=== PATIENT | female | born 1955 | race Two or more races ===

== ENCOUNTER 2018-01-16 05:13 | Inpatient (IN) | payer MEDICAID ==
[~2018-01-16] VITALS: Ht 170.2 cm; Wt 119.0 kg
[~2018-01-16 05:13] MED LIST: ACAR50TA9 PO; ATEN-60 PO; CLOP75TA28 PO; ENAL5TAB92 PO; GLIP-116 PO; HYDR25TA35 PO; METF-370 PO; RAMI10CA38 PO; RANI-226 PO; SIMV-13 PO
[2018-01-16 07:14] LABS: Basophils # (auto) 0 uL; Basophils % (auto) 0.3 % (0.0-2.0); Eosinophils # (auto) 0.1 uL; Eosinophils % (auto) 2.3 % (0.0-7.0); Hematocrit 33.6 % (36.0-46.0); Hemoglobin 11.3 g/dL (12.2-16.2); Lymphocytes # (auto) 1.3 uL; Lymphocytes % (auto) 32.9 % (10.0-50.0); Mean Corpuscular Hemoglobin 30.6 pg (28.0-32.0); Mean Corpuscular Hgb Conc. 33.5 g/dL (32.0-36.0); Mean Corpuscular Volume 91.4 fL (80.0-100.0); Monocytes # (auto) 0.4 uL; Monocytes % (auto) 10.2 % (0.0-12.0); Neutrophils # (auto) 2.2 uL; Neutrophils % (auto) 54.3 % (37.0-80.0); Nucleated Red Blood Cells % 0.1 %; Platelet Count (auto) 139 10^3/uL (140-450); Red Blood Cells 3.68 10^6/uL (4.0-5.20); Red Cell Distribution Width 14.6 % (11.8-14.3); White Blood Cell 4.1 10^3/uL (4.4-10.8)
[2018-01-16 07:20] LABS: INR 0.97 (0.9-1.15); Partial Thromboplastin Time 25.6 sec (22.64-33.71); Prothrombin Time 10.6 sec (9.37-12.3)
[2018-01-16 07:46] LABS: Albumin 3.1 g/dL (3.4-5.0); BUN/Creatinine Ratio 21.6; Bilirubin, Total 0.3 mg/dL (0.2-1.0); Calcium 8.8 mg/dL (8.5-10.1); Magnesium 2.1 mg/dL (1.6-2.6); Potassium 4.1 mmol/L (3.5-5.1); Total Protein 6.5 g/dL (6.4-8.2)
[2018-01-16 08:19] LABS: Urine Bacteria NONE SEEN /hpf (None Seen); Urine Blood Negative /uL (Negative); Urine Specific Gravity 1.018 (1.001-1.035); Urine WBC <1 /hpf (0 - 5)
[2018-01-16] MEDS ORDERED: ASPirin 81 mg TAB PO ONE (09:00)
[2018-01-16] MEDS ORDERED: ENOXAPARIN SOD 120 MG/0.8 ML SYRINGE SC ONE (09:00)
[2018-01-16] MEDS ORDERED: DEXTROSE (50%) 50ML SYRG IV PRN (10:45)
[2018-01-16] MEDS ORDERED: METOPROLOL TARTRATE 25 MG TAB PO ONE (10:45)
[2018-01-16] MEDS ORDERED: ATORVASTATIN 20 MG TAB PO ONE (10:45)
[2018-01-16] MEDS ORDERED: ACETAMINOPHEN 325 MG TAB PO PRN (11:00)
[2018-01-16] MEDS ORDERED: NITROGLYCERIN 0.4 MG SL TAB SL PRN ×2 (11:00)
[2018-01-16] MEDS ORDERED: ZOLPIDEM TARTRATE 5 MG TAB PO PRN (11:00)
[2018-01-16] MEDS ORDERED: MORPHINE SULFATE 4 MG/ML SYR/VIAL IV PRN ×2 (11:00)
[2018-01-16] MEDS ORDERED: FUROSEMIDE 40 MG/4 ML VIAL IV ONE (11:00)
[2018-01-16] MEDS ORDERED: ALUM & MAG HYDROX-SIMETH LIQ(MAALOX) 30 ML PO ONE (11:00)
[2018-01-16] MEDS ORDERED: POTASSIUM CHL 10 Meq TABLET PO ONE (11:00)
[2018-01-16] MEDS ORDERED: ONDANSETRON HCL 4 MG/2 ML VIAL IV PRN (11:00)
[2018-01-16] MEDS ORDERED: LORazepam 0.5 MG TAB PO PRN (11:00)
[2018-01-16] MEDS: ACCU-CHEK COMFORT CURVE STRIP VI SCH ×3 (11:08→22:55)
[2018-01-16] MEDS: SODIUM CHLOR 0.9% PF (SALINE LOCK) 10ML VIAL/SYR IV SCH ×2 (11:11→22:55)
[2018-01-16] MEDS ORDERED: ASPirin 81 mg TAB PO SCH (11:15)
[2018-01-16] MEDS ORDERED: ENOXAPARIN SOD 100 MG/1 ML SYRINGE SC SCH (11:15)
[2018-01-16] MEDS: CLOPIDOGREL BISULFATE 75 MG TAB PO SCH (11:43)
[2018-01-16] MEDS: InsuLIN REG 1unit/0.01ml Soln (100units/ml) SC SCH ×3 (11:43→22:55)
[2018-01-16] MEDS: Boost Glucose Control 8 Ounces PO SCH ×2 (12:23→18:01)
[2018-01-16] MEDS ORDERED: FURO20TA3 PO (13:00)
[2018-01-16] MEDS ORDERED: CAR3125T PO (13:00)
[2018-01-16] MEDS ORDERED: NATE120T5 PO (13:00)
[2018-01-16] MEDS ORDERED: TERB250T66 PO (13:00)
[2018-01-16] MEDS ORDERED: PIO30T PO (13:00)
[2018-01-16] MEDS ORDERED: ACAR100T2 PO (13:00)
[2018-01-16] MEDS ORDERED: PANC3000 PO (13:00)
[2018-01-16] MEDS: glipiZIDE 5 MG TAB PO SCH (18:01)
[2018-01-16] MEDS ORDERED: ATORVASTATIN 20 MG TAB PO SCH (22:00)
[2018-01-16] MEDS: ENALAPRIL MALEATE 2.5 MG TAB PO SCH (22:55)
[2018-01-16] MEDS: ENOXAPARIN SOD 100 MG/1 ML SYRINGE SC SCH (22:55)
[2018-01-16] MEDS: CARVEDILOL 3.125 MG TAB PO SCH (22:55)
[2018-01-16] MEDS: METOPROLOL TARTRATE 25 MG TAB PO SCH (22:55)
[2018-01-17] VITALS (7 sets, daily range): BP systolic 110–141; BP diastolic 57–76
[2018-01-17] MEDS: SODIUM CHLOR 0.9% PF (SALINE LOCK) 10ML VIAL/SYR IV SCH ×2 (05:23→17:08)
[2018-01-17] MEDS: ACCU-CHEK COMFORT CURVE STRIP VI SCH ×3 (05:23→17:00)
[2018-01-17] MEDS: InsuLIN REG 1unit/0.01ml Soln (100units/ml) SC SCH ×3 (06:06→17:00)
[2018-01-17] MEDS: glipiZIDE 5 MG TAB PO SCH (06:06)
[2018-01-17 07:35] LABS: Basophils # (auto) 0 uL; Basophils % (auto) 0.4 % (0.0-2.0); Eosinophils # (auto) 0.1 uL; Eosinophils % (auto) 2.2 % (0.0-7.0); Hemoglobin 10.9 g/dL (12.2-16.2); Lymphocytes % (auto) 42.9 % (10.0-50.0); Mean Corpuscular Hemoglobin 30.7 pg (28.0-32.0); Mean Corpuscular Volume 90.5 fL (80.0-100.0); Monocytes # (auto) 0.5 uL; Monocytes % (auto) 9.9 % (0.0-12.0); Neutrophils # (auto) 2.1 uL; Neutrophils % (auto) 44.6 % (37.0-80.0); Platelet Count (auto) 133 10^3/uL (140-450); Red Blood Cells 3.53 10^6/uL (4.0-5.20); Red Cell Distribution Width 14.5 % (11.8-14.3); White Blood Cell 4.7 10^3/uL (4.4-10.8)
[2018-01-17] MEDS: Boost Glucose Control 8 Ounces PO SCH ×2 (08:00→12:00)
[2018-01-17 08:02] LABS: Albumin 2.8 g/dL (3.4-5.0); BUN/Creatinine Ratio 19.6; Bilirubin, Total 0.4 mg/dL (0.2-1.0); Calcium 8.8 mg/dL (8.5-10.1); Magnesium 2.2 mg/dL (1.6-2.6); Potassium 4.1 mmol/L (3.5-5.1); Total Protein 5.9 g/dL (6.4-8.2)
[2018-01-17] MEDS ORDERED: PIOGLITAZONE HYDROCHLORIDE 30 MG TAB PO SCH (10:00)
[2018-01-17] MEDS ORDERED: DOCUSATE SOD 100 MG CAP PO SCH (10:00)
[2018-01-17] MEDS ORDERED: ASPirin 81 mg TAB PO SCH (10:00)
[2018-01-17] MEDS ORDERED: POTASSIUM CHL 10 Meq TABLET PO SCH (10:00)
[2018-01-17] MEDS ORDERED: FUROSEMIDE 40 MG/4 ML VIAL IV SCH (10:00)
[2018-01-17] MEDS: CLOPIDOGREL BISULFATE 75 MG TAB PO SCH (10:54)
[2018-01-17] MEDS: ENALAPRIL MALEATE 2.5 MG TAB PO SCH (10:55)
[2018-01-17] MEDS: CARVEDILOL 3.125 MG TAB PO SCH (10:56)
[2018-01-17] MEDS: METOPROLOL TARTRATE 25 MG TAB PO SCH (10:56)
[2018-01-17] MEDS: ENOXAPARIN SOD 100 MG/1 ML SYRINGE SC SCH (10:57)
== END 2018-01-17 17:00 | disposition home or self-care (01) | DRG 190 ==
LOC: EDBD 05:13 → ER 05:18 → OVERFLOW 05:19 → TELE-WESTW 01-17 01:57
PROVIDERS: ADMIT Internal Medicine; ATTEND Internal Medicine
DX: I21.4 Non-ST elevation (NSTEMI) myocardial infarction (principal); I50.43 Acute on chronic combined systolic (congestive) and diastolic (congestive) heart failure; E44.0 Moderate protein-calorie malnutrition; E11.21 Type 2 diabetes mellitus with diabetic nephropathy; N18.3 Chronic kidney disease, stage 3 (moderate); E87.6 Hypokalemia; D63.8 Anemia in other chronic diseases classified elsewhere; E11.22 Type 2 diabetes mellitus with diabetic chronic kidney disease; E66.01 Morbid (severe) obesity due to excess calories; E78.5 Hyperlipidemia, unspecified; I13.0 Hypertensive heart and chronic kidney disease with heart failure and stage 1 through stage 4 chronic kidney disease, or unspecified chronic kidney disease; I25.10 Atherosclerotic heart disease of native coronary artery without angina pectoris; Z90.710 Acquired absence of both cervix and uterus; Z90.49 Acquired absence of other specified parts of digestive tract; Z68.41 Body mass index [BMI] 40.0-44.9, adult
CPT/HCPCS: 36415; 71045; 80053; 80061; 81001; 82962; 83036; 83735; 83880; 84443; 84484; 85025; 85610; 85730; 93005; 93306; 96372; 96374; 99291; G0378; J1815

== ENCOUNTER 2018-01-19 16:43 | Inpatient (IN) | payer MEDICAID ==
[~2018-01-19] VITALS: Ht 170.2 cm; Wt 118.8 kg
[~2018-01-19 16:43] MED LIST changes: +ACAR100T2 PO; -ATEN-60 PO; +CAR3125T PO; -CLOP75TA28 PO; +FURO20TA3 PO; -HYDR25TA35 PO; +NATE120T5 PO; +PANC3000 PO; +PIO30T PO; -RAMI10CA38 PO; +TERB250T66 PO
[2018-01-19 17:58] LABS: Basophils # (auto) 0 uL; Basophils % (auto) 0.5 % (0.0-2.0); Eosinophils # (auto) 0.1 uL; Eosinophils % (auto) 2.2 % (0.0-7.0); Hematocrit 34.1 % (36.0-46.0); Hemoglobin 11.4 g/dL (12.2-16.2); Lymphocytes # (auto) 1.6 uL; Lymphocytes % (auto) 30.8 % (10.0-50.0); Mean Corpuscular Hemoglobin 30.5 pg (28.0-32.0); Mean Corpuscular Hgb Conc. 33.4 g/dL (32.0-36.0); Mean Corpuscular Volume 91.3 fL (80.0-100.0); Monocytes # (auto) 0.6 uL; Monocytes % (auto) 11.6 % (0.0-12.0); Neutrophils # (auto) 2.8 uL; Neutrophils % (auto) 54.9 % (37.0-80.0); Platelet Count (auto) 153 10^3/uL (140-450); Red Blood Cells 3.74 10^6/uL (4.0-5.20); Red Cell Distribution Width 14.8 % (11.8-14.3); White Blood Cell 5.1 10^3/uL (4.4-10.8)
[2018-01-19 18:13] LABS: Albumin 3.1 g/dL (3.4-5.0); BUN/Creatinine Ratio 22.8; Calcium 8.9 mg/dL (8.5-10.1); Magnesium 1.8 mg/dL (1.6-2.6); Potassium 3.7 mmol/L (3.5-5.1)
[2018-01-19 18:15] LABS: INR 0.99 (0.9-1.15); Partial Thromboplastin Time 23.7 sec (22.64-33.71); Prothrombin Time 10.8 sec (9.37-12.3)
[2018-01-19 18:16] LABS: Bilirubin, Total 0.3 mg/dL (0.2-1.0); Total Protein 6.9 g/dL (6.4-8.2)
[2018-01-19] MEDS ORDERED: MORPHINE SULFATE 4 MG/ML SYR/VIAL IV ONE (19:15)
[2018-01-19] MEDS ORDERED: ONDANSETRON HCL 4 MG/2 ML VIAL IV ONE (19:15)
[2018-01-19] MEDS ORDERED: ASPirin 81 mg TAB PO ONE (19:15)
[2018-01-19] MEDS ORDERED: ENOXAPARIN SOD 60 MG/0.6 ML SYRINGE SC ONE (23:15)
[2018-01-20] MEDS ORDERED: NITROGLYCERIN 0.4 MG SL TAB SL PRN (00:15)
[2018-01-20] MEDS ORDERED: MORPHINE SULFATE 4 MG/ML SYR/VIAL IV PRN (00:15)
[2018-01-20] MEDS ORDERED: TEMAZEPAM 15 MG CAP PO PRN (00:15)
[2018-01-20] MEDS ORDERED: HYDROcodone-ACET 5/325MG TAB PO PRN (00:15)
[2018-01-20] MEDS ORDERED: ONDANSETRON HCL 4 MG/2 ML VIAL IV PRN (00:15)
[2018-01-20] MEDS ORDERED: ACETAMINOPHEN 325 MG TAB PO PRN (00:15)
[2018-01-20 01:38] VITALS: BP 146/81
[2018-01-20 04:56] VITALS: BP 124/64
[2018-01-20] MEDS ORDERED: FUROSEMIDE 20 MG TAB PO SCH (06:00)
[2018-01-20] MEDS ORDERED: glipiZIDE 5 MG TAB PO SCH (07:00)
[2018-01-20 09:00] VITALS: BP 128/65
[2018-01-20] MEDS ORDERED: ENOXAPARIN SOD 40 MG/0.4 ML SYRINGE SC SCH (10:00)
[2018-01-20] MEDS ORDERED: FAMOTIDINE 20 MG TAB PO SCH (10:00)
[2018-01-20] MEDS ORDERED: ASPirin 81 mg TAB PO SCH (10:00)
[2018-01-20] MEDS ORDERED: ENALAPRIL MALEATE 10 MG TAB PO SCH (10:00)
[2018-01-20] MEDS ORDERED: CARVEDILOL 3.125 MG TAB PO SCH (10:00)
[2018-01-20 13:00] VITALS: BP 105/60
[2018-01-20] MEDS ORDERED: ATORVASTATIN 20 MG TAB PO SCH (22:00)
== END 2018-01-20 13:17 | disposition home or self-care (01) | DRG 347 ==
LOC: EDBD 16:43 → ER 16:43 → TELE 16:44 → TELE-EAST 01-20 01:21
PROVIDERS: ADMIT Nurse Practitioner; ATTEND Nurse Practitioner
DX: M47.812 Spondylosis without myelopathy or radiculopathy, cervical region (principal); I11.0 Hypertensive heart disease with heart failure; I50.9 Heart failure, unspecified; Z68.41 Body mass index [BMI] 40.0-44.9, adult; I08.0 Rheumatic disorders of both mitral and aortic valves; E11.9 Type 2 diabetes mellitus without complications; E66.9 Obesity, unspecified; I25.10 Atherosclerotic heart disease of native coronary artery without angina pectoris; M19.90 Unspecified osteoarthritis, unspecified site; N28.9 Disorder of kidney and ureter, unspecified; M77.9 Enthesopathy, unspecified; Z82.49 Family history of ischemic heart disease and other diseases of the circulatory system; Z83.3 Family history of diabetes mellitus; Z90.710 Acquired absence of both cervix and uterus; Z90.49 Acquired absence of other specified parts of digestive tract
CPT/HCPCS: 36415; 71045; 72040; 80053; 82962; 83735; 83880; 84484; 85025; 85379; 85610; 85730; 87081; 93005; 94761; 96372; 96374; 96375; J2405

== ENCOUNTER 2022-08-05 20:49 | Inpatient (IN) | payer MEDICAID, OTHER ==
[~2022-08-05] VITALS: Ht 172.7 cm; Wt 124.0 kg
[~2022-08-05 20:49] MED LIST changes: +ACAR100T PO; -ACAR100T2 PO; -ACAR50TA9 PO; +ENAL5TAB10 PO; -ENAL5TAB92 PO; -GLIP-116 PO; +GLIP10TA9 PO
[2022-08-05 22:23] LABS: Basophils # (auto) 0 10 ^3/uL (0-0.2); Basophils % (auto) 0.5 % (0.0-2.0); Eosinophils # (auto) 0.3 10 ^3/uL (0-0.8); Hematocrit 41.9 % (36.0-46.0); Hemoglobin 13.8 g/dL (12.2-16.2); Lymphocytes # (auto) 2.4 10 ^3/uL (0.4-5.4); Lymphocytes % (auto) 35.1 % (10.0-50.0); Mean Corpuscular Hemoglobin 29.4 pg (28.0-32.0); Monocytes # (auto) 0.6 10 ^3/uL (0-1.3); Monocytes % (auto) 8.3 % (0.0-12.0); Neutrophils # (auto) 3.6 10 ^3/uL (1.6-8.6); Neutrophils % (auto) 52.1 % (37.0-80.0); Red Blood Cells 4.71 10^6/uL (4.0-5.20); Red Cell Distribution Width 12.9 % (11.8-14.3)
[2022-08-05 22:37] LABS: Albumin 3.6 g/dL (3.4-5.0); Calcium 9.6 mg/dL (8.5-10.1); Potassium 4.5 mmol/L (3.5-5.1)
[2022-08-05 22:40] LABS: BUN/Creatinine Ratio 25.3; Bilirubin, Total 0.5 mg/dL (0.2-1.0); Total Protein 6.8 g/dL (6.4-8.2)
[2022-08-05] MEDS ORDERED: ONDANSETRON HCL 4 MG/2 ML VIAL IV PRN (23:00)
[2022-08-05] MEDS ORDERED: DEXTROSE (50%) 50ML SYRG IV PRN (23:00)
[2022-08-05] MEDS ORDERED: NITROGLYCERIN 0.4 MG SL TAB SL PRN (23:00)
[2022-08-05] MEDS ORDERED: DOCUSATE SOD 100 MG CAP PO PRN (23:00)
[2022-08-05] MEDS ORDERED: hydrALAZINE HCL 20 MG/ML VL IV PRN (23:00)
[2022-08-05] MEDS ORDERED: HYDROcodone-ACET 5/325MG TAB PO PRN (23:00)
[2022-08-05] MEDS ORDERED: MORPHINE SULFATE INJ 2 MG/ml SYRG IV PRN (23:00)
[2022-08-05] MEDS ORDERED: ACETAMINOPHEN 325 MG TAB PO PRN (23:00)
[2022-08-06] MEDS ORDERED: HEPARIN SODIUM (PORCINE) 5000 UNITS/ML 1ML VIAL SC SCH (00:15)
[2022-08-06] MEDS: ACCU-CHEK COMFORT CURVE STRIP VI SCH ×4 (03:00→17:35)
[2022-08-06] MEDS: InsuLIN REG 1unit/0.01ml Soln (100units/ml) SC SCH ×4 (03:07→17:44)
[2022-08-06] MEDS ORDERED: HEPARIN DRIP/D5W 100UNITS/ML 250 ML IV SCH ×3 (03:45→21:45)
[2022-08-06 03:55] LABS: Basophils # (auto) 0 10 ^3/uL (0-0.2); Basophils % (auto) 0.4 % (0.0-2.0); Eosinophils # (auto) 0.3 10 ^3/uL (0-0.8); Hemoglobin 13.3 g/dL (12.2-16.2); Lymphocytes # (auto) 2.3 10 ^3/uL (0.4-5.4); Mean Corpuscular Hemoglobin 29.5 pg (28.0-32.0); Mean Corpuscular Hgb Conc. 33.2 g/dL (32.0-36.0); Mean Corpuscular Volume 88.8 fL (80.0-100.0); Monocytes # (auto) 0.7 10 ^3/uL (0-1.3); Monocytes % (auto) 9.7 % (0.0-12.0); Neutrophils # (auto) 3.7 10 ^3/uL (1.6-8.6); Neutrophils % (auto) 52.9 % (37.0-80.0); Red Blood Cells 4.51 10^6/uL (4.0-5.20)
[2022-08-06 04:11] LABS: Albumin 3.2 g/dL (3.4-5.0); Calcium 9.5 mg/dL (8.5-10.1); Potassium 4.1 mmol/L (3.5-5.1)
[2022-08-06 04:17] LABS: BUN/Creatinine Ratio 26.3; Bilirubin, Total 0.8 mg/dL (0.2-1.0); Total Protein 6.2 g/dL (6.4-8.2)
[2022-08-06 04:21] LABS: Urine Bacteria NONE SEEN /hpf (None Seen); Urine Blood TRACE /uL (Negative); Urine Specific Gravity 1.018 (1.001-1.035); Urine WBC 2 /hpf (0 - 5)
[2022-08-06 05:12] LABS: INR 1.03 (0.9-1.15); Partial Thromboplastin Time 26.2 sec (24.6-33.4)
[2022-08-06] MEDS: SODIUM CHLOR 0.9% PF (SALINE LOCK) 10ML VIAL/SYR IV SCH ×3 (06:04→21:51)
[2022-08-06] MEDS: amLODIPine BESYLATE 5 MG TAB PO SCH (10:09)
[2022-08-06] MEDS: ASPirin 81 mg TAB PO SCH (10:09)
[2022-08-06 13:06] LABS: INR 1.06 (0.9-1.15)
[2022-08-06 13:28] LABS: Partial Thromboplastin Time 108.4 sec (24.6-33.4)
[2022-08-06 16:20] VITALS: BP 149/65
[2022-08-06] MEDS ORDERED: CLOPIDOGREL 300 MG TAB PO ONE (16:45)
[2022-08-06 17:00] VITALS: BP 149/65
[2022-08-06 20:48] LABS: INR 1.4 (0.9-1.15); Partial Thromboplastin Time 34.2 sec (24.6-33.4)
[2022-08-06] MEDS ORDERED: HEPARIN SODIUM (PORCINE) 5000 UNITS/ML 1ML VIAL IV ONE (21:45)
[2022-08-06] MEDS: CARVEDILOL 12.5 MG TAB PO SCH (21:51)
[2022-08-06] MEDS: ATORVASTATIN 20 MG TAB PO SCH (21:52)
[2022-08-06 22:00] VITALS: BP 152/91
[2022-08-06] MEDS ORDERED: ATORVASTATIN 20 MG TAB PO SCH (22:00)
[2022-08-07] MEDS: ACCU-CHEK COMFORT CURVE STRIP VI SCH ×5 (00:11→23:56)
[2022-08-07 05:00] VITALS: BP 146/71
[2022-08-07] MEDS: SODIUM CHLOR 0.9% PF (SALINE LOCK) 10ML VIAL/SYR IV SCH ×3 (05:40→22:00)
[2022-08-07] MEDS: InsuLIN REG 1unit/0.01ml Soln (100units/ml) SC SCH ×5 (05:53→23:58)
[2022-08-07 06:09] LABS: INR 1.18 (0.9-1.15)
[2022-08-07 06:14] LABS: Partial Thromboplastin Time > 139.0 sec (24.6-33.4)
[2022-08-07] MEDS ORDERED: HEPARIN DRIP/D5W 100UNITS/ML 250 ML IV SCH ×2 (07:30→15:30)
[2022-08-07 08:00] VITALS: BP 144/73
[2022-08-07] MEDS: CARVEDILOL 12.5 MG TAB PO SCH ×2 (09:04→22:00)
[2022-08-07] MEDS: CLOPIDOGREL BISULFATE 75 MG TAB PO SCH (09:04)
[2022-08-07] MEDS: amLODIPine BESYLATE 5 MG TAB PO SCH (09:05)
[2022-08-07] MEDS: ASPirin 81 mg TAB PO SCH (09:05)
[2022-08-07 12:00] VITALS: BP 101/56
[2022-08-07] MEDS ORDERED: DEXT100S73 PO (12:44)
[2022-08-07] MEDS ORDERED: ALBUAER3 IN (12:44)
[2022-08-07] MEDS ORDERED: AZIT250T8 PO (12:44)
[2022-08-07 14:09] LABS: INR 1.12 (0.9-1.15)
[2022-08-07 14:14] LABS: Partial Thromboplastin Time 82.4 sec (24.6-33.4)
[2022-08-07 16:00] VITALS: BP 137/66
[2022-08-07 21:20] LABS: INR 1.09 (0.9-1.15); Partial Thromboplastin Time 68.4 sec (24.6-33.4)
[2022-08-07 22:00] VITALS: BP 129/72
[2022-08-07] MEDS: ATORVASTATIN 20 MG TAB PO SCH (22:00)
[2022-08-08 03:34] LABS: INR 1.1 (0.9-1.15)
[2022-08-08 03:48] LABS: Partial Thromboplastin Time 72.1 sec (24.6-33.4)
[2022-08-08 05:00] VITALS: BP 136/66
[2022-08-08] MEDS: SODIUM CHLOR 0.9% PF (SALINE LOCK) 10ML VIAL/SYR IV SCH ×2 (05:54→15:06)
[2022-08-08] MEDS: ACCU-CHEK COMFORT CURVE STRIP VI SCH ×2 (05:54→11:18)
[2022-08-08] MEDS: InsuLIN REG 1unit/0.01ml Soln (100units/ml) SC SCH ×2 (05:55→11:17)
[2022-08-08 08:04] VITALS: BP 115/62
[2022-08-08 09:00] VITALS: BP 146/72
[2022-08-08] MEDS: CLOPIDOGREL BISULFATE 75 MG TAB PO SCH (09:33)
[2022-08-08] MEDS: ASPirin 81 mg TAB PO SCH (09:34)
[2022-08-08] MEDS: CARVEDILOL 12.5 MG TAB PO SCH (09:34)
[2022-08-08] MEDS: amLODIPine BESYLATE 5 MG TAB PO SCH (09:35)
[2022-08-08 10:29] LABS: INR 1.11 (0.9-1.15); Partial Thromboplastin Time 64.1 sec (24.6-33.4)
[2022-08-08] MEDS ORDERED: RANOLAZINE ER 500 MG TAB PO ONE (13:00)
[2022-08-08 13:01] VITALS: BP 119/57
[2022-08-08] MEDS ORDERED: CLOP75TA70 PO (16:02)
[2022-08-08] MEDS ORDERED: RANO500T PO (16:02)
[2022-08-08] MEDS ORDERED: SACU1TAB PO (16:02)
[2022-08-08 16:58] VITALS: BP 121/54
[2022-08-08] MEDS ORDERED: SACUBITRIL-VALSARTAN 24mg/26mg TAB PO SCH (22:00)
[2022-08-08] MEDS ORDERED: RANOLAZINE ER 500 MG TAB PO SCH (22:00)
== END 2022-08-08 18:01 | disposition home or self-care (01) | DRG 281 ==
LOC: EDBD 20:49 → ER 20:49 → UNDOADMIN 23:05 → TELE 23:05 → TELE-EAST 08-06 16:33 → TELE 08-06 16:33 → TELE-EAST 08-06 17:19
PROVIDERS: ADMIT Nurse Practitioner Family; ATTEND Internal Medicine
DX: I21.4 Non-ST elevation (NSTEMI) myocardial infarction (principal); I50.22 Chronic systolic (congestive) heart failure; Z68.41 Body mass index [BMI] 40.0-44.9, adult; E78.5 Hyperlipidemia, unspecified; I16.0 Hypertensive urgency; I25.10 Atherosclerotic heart disease of native coronary artery without angina pectoris; E66.01 Morbid (severe) obesity due to excess calories; R94.31 Abnormal electrocardiogram [ECG] [EKG]; E11.9 Type 2 diabetes mellitus without complications; I11.0 Hypertensive heart disease with heart failure; I25.2 Old myocardial infarction; Z79.899 Other long term (current) drug therapy; Z82.49 Family history of ischemic heart disease and other diseases of the circulatory system; Z83.3 Family history of diabetes mellitus; Z90.710 Acquired absence of both cervix and uterus; Z90.49 Acquired absence of other specified parts of digestive tract
CPT/HCPCS: 36415; 71045; 80053; 81001; 82962; 83036; 83735; 83880; 84484; 85025; 85379; 85610; 85730; 87081; 87426; 93005; 93306; 96365; 96367; 96372; 96375; G0378; J1815

== ENCOUNTER 2022-08-12 01:47 | Inpatient (IN) | payer OTHER ==
[~2022-08-12] VITALS: Ht 172.7 cm; Wt 120.2 kg
[~2022-08-12 01:47] MED LIST changes: +ALBUAER3 IN; +CLOP75TA70 PO; +RANO500T PO; +SACU1TAB PO
[2022-08-12 02:51] LABS: Basophils # (auto) 0 10 ^3/uL (0-0.2); Basophils % (auto) 0.7 % (0.0-2.0); Eosinophils # (auto) 0.3 10 ^3/uL (0-0.8); Eosinophils % (auto) 4.1 % (0.0-7.0); Hemoglobin 12.7 g/dL (12.2-16.2); Lymphocytes # (auto) 1.8 10 ^3/uL (0.4-5.4); Lymphocytes % (auto) 28.1 % (10.0-50.0); Mean Corpuscular Hemoglobin 29.1 pg (28.0-32.0); Mean Corpuscular Hgb Conc. 32.5 g/dL (32.0-36.0); Mean Corpuscular Volume 89.7 fL (80.0-100.0); Monocytes # (auto) 0.6 10 ^3/uL (0-1.3); Monocytes % (auto) 10.1 % (0.0-12.0); Neutrophils # (auto) 3.6 10 ^3/uL (1.6-8.6); Red Blood Cells 4.35 10^6/uL (4.0-5.20); Red Cell Distribution Width 13.2 % (11.8-14.3); White Blood Cell 6.3 10^3/uL (4.4-10.8)
[2022-08-12 03:00] LABS: BUN/Creatinine Ratio 25.3; Calcium 8.9 mg/dL (8.5-10.1)
[2022-08-12 03:02] LABS: Bilirubin, Total 0.5 mg/dL (0.2-1.0); Total Protein 5.9 g/dL (6.4-8.2)
[2022-08-12 03:07] LABS: INR 1.02 (0.9-1.15); Partial Thromboplastin Time 24.9 sec (24.6-33.4)
[2022-08-12] MEDS ORDERED: ASPirin 81 mg TAB PO ONE (05:30)
[2022-08-12] MEDS ORDERED: MORPHINE SULFATE INJ 2 MG/ml SYRG IV PRN (05:30)
[2022-08-12] MEDS ORDERED: ONDANSETRON HCL 4 MG/2 ML VIAL IV PRN ×2 (07:30→09:45)
[2022-08-12] MEDS ORDERED: ENOXAPARIN SOD 30 MG/0.3 ML SYRINGE IV ONE (09:45)
[2022-08-12] MEDS ORDERED: NITROGLYCERIN 0.4 MG SL TAB SL PRN (09:45)
[2022-08-12] MEDS ORDERED: ACETAMINOPHEN 325 MG TAB PO PRN (09:45)
[2022-08-12] MEDS ORDERED: MORPHINE SULFATE 4 MG/ML SYR/VIAL IV PRN (09:45)
[2022-08-12] MEDS ORDERED: ENALAPRIL MALEATE 10 MG TAB PO SCH (10:00)
[2022-08-12 10:30] LABS: Urine Bacteria NONE SEEN /hpf (None Seen); Urine Blood Negative /uL (Negative); Urine Hyaline Cast FEW /lpf (0 - 2); Urine Specific Gravity 1.031 (1.001-1.035); Urine WBC 1 /hpf (0 - 5)
[2022-08-12] MEDS: DOCUSATE SOD 100 MG CAP PO SCH (10:40)
[2022-08-12] MEDS: RANOLAZINE ER 500 MG TAB PO SCH ×2 (10:41→23:58)
[2022-08-12] MEDS: SACUBITRIL-VALSARTAN 24mg/26mg TAB PO SCH ×2 (10:41→23:56)
[2022-08-12] MEDS: CLOPIDOGREL BISULFATE 75 MG TAB PO SCH (10:41)
[2022-08-12] MEDS: CARVEDILOL 3.125 MG TAB PO SCH ×2 (10:58→22:00)
[2022-08-12] MEDS ORDERED: DEXTROSE (50%) 50ML SYRG IV PRN (11:00)
[2022-08-12] MEDS: InsuLIN REG 1unit/0.01ml Soln (100units/ml) SC SCH ×2 (11:30→18:07)
[2022-08-12] MEDS: ACCU-CHEK COMFORT CURVE STRIP VI SCH ×2 (11:30→17:15)
[2022-08-12] MEDS ORDERED: PATIENTS OWN MEDICATION (Simvastatin 1 TAB) PO SCH (18:00)
[2022-08-12] MEDS: PANCREATIC ENZYMES PO SCH (18:00)
[2022-08-12] MEDS: FUROSEMIDE 20 MG TAB PO SCH (18:12)
[2022-08-12 22:00] VITALS: BP 122/71
[2022-08-12] MEDS: ATORVASTATIN 20 MG TAB PO SCH (23:58)
[2022-08-13] VITALS (7 sets, daily range): BP systolic 108–130; BP diastolic 44–72
[2022-08-13] MEDS: ACCU-CHEK COMFORT CURVE STRIP VI SCH ×5 (00:02→22:04)
[2022-08-13 06:01] LABS: Basophils # (auto) 0 10 ^3/uL (0-0.2); Basophils % (auto) 0.5 % (0.0-2.0); Eosinophils # (auto) 0.2 10 ^3/uL (0-0.8); Eosinophils % (auto) 3.8 % (0.0-7.0); Hematocrit 37.6 % (36.0-46.0); Hemoglobin 12.9 g/dL (12.2-16.2); Lymphocytes # (auto) 2.9 10 ^3/uL (0.4-5.4); Lymphocytes % (auto) 44.7 % (10.0-50.0); Mean Corpuscular Hemoglobin 30.5 pg (28.0-32.0); Mean Corpuscular Hgb Conc. 34.4 g/dL (32.0-36.0); Mean Corpuscular Volume 88.8 fL (80.0-100.0); Monocytes # (auto) 0.6 10 ^3/uL (0-1.3); Neutrophils # (auto) 2.7 10 ^3/uL (1.6-8.6); Nucleated Red Blood Cells % 0.1 %; Red Blood Cells 4.23 10^6/uL (4.0-5.20); Red Cell Distribution Width 13.2 % (11.8-14.3); White Blood Cell 6.5 10^3/uL (4.4-10.8)
[2022-08-13 06:06] LABS: Albumin 2.8 g/dL (3.4-5.0); Calcium 9.1 mg/dL (8.5-10.1); Potassium 3.7 mmol/L (3.5-5.1)
[2022-08-13 06:10] LABS: BUN/Creatinine Ratio 20.6; Bilirubin, Total 0.6 mg/dL (0.2-1.0); Total Protein 5.9 g/dL (6.4-8.2)
[2022-08-13] MEDS: InsuLIN REG 1unit/0.01ml Soln (100units/ml) SC SCH ×5 (06:25→21:31)
[2022-08-13] MEDS: FUROSEMIDE 20 MG TAB PO SCH ×2 (06:30→17:34)
[2022-08-13] MEDS: PANCREATIC ENZYMES PO SCH ×2 (08:00→16:58)
[2022-08-13] MEDS: DOCUSATE SOD 100 MG CAP PO SCH (10:03)
[2022-08-13] MEDS: CLOPIDOGREL BISULFATE 75 MG TAB PO SCH (10:03)
[2022-08-13] MEDS: RANOLAZINE ER 500 MG TAB PO SCH ×2 (10:03→22:04)
[2022-08-13] MEDS: SACUBITRIL-VALSARTAN 24mg/26mg TAB PO SCH ×2 (10:03→22:04)
[2022-08-13] MEDS: PANTOPRAZOLE 40 MG/10 ML VIAL INJ IV SCH (10:05)
[2022-08-13] MEDS: CARVEDILOL 3.125 MG TAB PO SCH ×2 (10:05→22:18)
[2022-08-13] MEDS: ATORVASTATIN 20 MG TAB PO SCH (22:04)
[2022-08-14 05:00] VITALS: BP 112/55
[2022-08-14] MEDS: InsuLIN REG 1unit/0.01ml Soln (100units/ml) SC SCH ×2 (06:33→12:13)
[2022-08-14] MEDS: ACCU-CHEK COMFORT CURVE STRIP VI SCH ×2 (06:38→12:13)
[2022-08-14] MEDS: FUROSEMIDE 20 MG TAB PO SCH (06:39)
[2022-08-14] MEDS: PANCREATIC ENZYMES PO SCH (08:00)
[2022-08-14 09:00] VITALS: BP 109/43
[2022-08-14] MEDS: PANTOPRAZOLE 40 MG/10 ML VIAL INJ IV SCH (09:24)
[2022-08-14] MEDS: RANOLAZINE ER 500 MG TAB PO SCH (09:24)
[2022-08-14] MEDS: CARVEDILOL 3.125 MG TAB PO SCH (09:25)
[2022-08-14] MEDS: DOCUSATE SOD 100 MG CAP PO SCH (09:25)
[2022-08-14] MEDS: CLOPIDOGREL BISULFATE 75 MG TAB PO SCH (09:25)
[2022-08-14] MEDS: SACUBITRIL-VALSARTAN 24mg/26mg TAB PO SCH (10:00)
== END 2022-08-14 12:45 | disposition home or self-care (01) | DRG 291 ==
LOC: EDBD 01:47 → EDUNIT# 01:47 → ER 01:47 → TELE 09:52 → TELE-CENTR 23:19
PROVIDERS: ADMIT Nurse Practitioner Family; ATTEND Nurse Practitioner Family
DX: I11.0 Hypertensive heart disease with heart failure (principal); I50.43 Acute on chronic combined systolic (congestive) and diastolic (congestive) heart failure; R07.9 Chest pain, unspecified; E78.5 Hyperlipidemia, unspecified; Z20.822 Contact with and (suspected) exposure to COVID-19; E11.9 Type 2 diabetes mellitus without complications; E78.00 Pure hypercholesterolemia, unspecified; I25.10 Atherosclerotic heart disease of native coronary artery without angina pectoris; K21.9 Gastro-esophageal reflux disease without esophagitis; Z82.49 Family history of ischemic heart disease and other diseases of the circulatory system; Z83.3 Family history of diabetes mellitus; Z90.710 Acquired absence of both cervix and uterus; I25.2 Old myocardial infarction
CPT/HCPCS: 36415; 71045; 80053; 80061; 81001; 82962; 83735; 83880; 84484; 85025; 85610; 85730; 87081; 87426; 93005; 96374; 96375; 96376; C9113; G0378; J1815; J2405

== ENCOUNTER 2023-11-13 04:19 | Inpatient (IN) | payer OTHER ==
[~2023-11-13] VITALS: Ht 162.6 cm; Wt 104.9 kg
[~2023-11-13 04:19] MED LIST changes: -ENAL5TAB10 PO; +ENAL5TAB22 PO; -SIMV-13 PO; +SIMV40TA18 PO; -TERB250T66 PO; +TERB250T74 PO
[2023-11-13] MEDS: cloNIDine HCL 0.1 MG TAB PO ONE (04:48)
[2023-11-13 05:05] LABS: Basophils # (auto) 0 10 ^3/uL (0-0.2); Basophils % (auto) 0.5 % (0.0-2.0); Eosinophils # (auto) 0.1 10 ^3/uL (0-0.8); Eosinophils % (auto) 2.3 % (0.0-7.0); Hematocrit 40.2 % (36.0-46.0); Hemoglobin 13.3 g/dL (12.2-16.2); Lymphocytes # (auto) 1.4 10 ^3/uL (0.4-5.4); Lymphocytes % (auto) 27.3 % (10.0-50.0); Mean Corpuscular Hemoglobin 30.8 pg (28.0-32.0); Mean Corpuscular Hgb Conc. 33.2 g/dL (32.0-36.0); Mean Corpuscular Volume 92.8 fL (80.0-100.0); Monocytes # (auto) 0.5 10 ^3/uL (0-1.3); Monocytes % (auto) 9.1 % (0.0-12.0); Neutrophils # (auto) 3.2 10 ^3/uL (1.6-8.6); Neutrophils % (auto) 60.8 % (37.0-80.0); Red Blood Cells 4.33 10^6/uL (4.0-5.20); Red Cell Distribution Width 14.1 % (11.8-14.3); White Blood Cell 5.2 10^3/uL (4.4-10.8)
[2023-11-13 05:23] LABS: Alanine Aminotransferase 16 U/L (7-40); Albumin 4.1 g/dL (3.2-4.8); Alkaline Phosphatase 58 U/L (46-116); Anion Gap 6 (5-15); Aspartate Aminotransferase 15 U/L (13-40); BUN/Creatinine Ratio 14.5 (10.0-20.0); Blood Urea Nitrogen 18 mg/dL (9-23); Calcium 10.2 mg/dL (8.7-10.4); Carbon Dioxide 27 mmol/L (20-30); Chloride 103 mmol/L (98-107); Glucose 306 mg/dL (74-106); Potassium 3.9 mmol/L (3.5-5.1); Sodium 136 mmol/L (136-145)
[2023-11-13 05:24] LABS: Bilirubin, Total 0.5 mg/dL (0.2-1.0); Total Protein 6.9 g/dL (5.7-8.2)
[2023-11-13] MEDS ORDERED: ONDANSETRON HCL 4 MG/2 ML VIAL IV PRN (07:15)
[2023-11-13] MEDS ORDERED: ACETAMINOPHEN 325 MG TAB PO PRN (07:15)
[2023-11-13] MEDS ORDERED: MORPHINE SULFATE INJ 2 MG/ml SYRG IV PRN (07:15)
[2023-11-13] MEDS ORDERED: DEXTROSE (50%) 50ML SYRG IV PRN (07:15)
[2023-11-13] MEDS ORDERED: NITROGLYCERIN 0.4 MG SL TAB SL PRN (07:15)
[2023-11-13] MEDS: ASPirin 81 mg TAB PO ONE (07:21)
[2023-11-13 07:22] VITALS: RESP 18; O2SAT 98
[2023-11-13] MEDS: ASPirin 81 mg TAB PO SCH (10:00)
[2023-11-13] MEDS ORDERED: SACUBITRIL-VALSARTAN 24mg/26mg TAB PO SCH (10:00)
[2023-11-13] MEDS ORDERED: ENALAPRIL MALEATE 10 MG TAB PO SCH (10:00)
[2023-11-13] MEDS: CARVEDILOL 3.125 MG TAB PO SCH (10:43)
[2023-11-13] MEDS: CLOPIDOGREL BISULFATE 75 MG TAB PO SCH (10:43)
[2023-11-13] MEDS: RANOLAZINE ER 500 MG TAB PO SCH (10:43)
[2023-11-13] MEDS: InsuLIN REG 1unit/0.01ml Soln (100units/ml) SC SCH (11:00)
[2023-11-13] MEDS: ACCU-CHEK COMFORT CURVE STRIP VI SCH (11:01)
[2023-11-13] MEDS ORDERED: VALSARTAN 80 MG TAB PO ONE (12:45)
[2023-11-13] MEDS: hydrALAZINE HCL 20 MG/ML VL IV PRN (12:56)
[2023-11-13] MEDS: VALSARTAN 80 MG TAB PO ONE (12:56)
[2023-11-13 14:01] LABS: Magnesium 1.5 mg/dL (1.6-2.6)
[2023-11-13 14:02] LABS: INR 1.05 (0.9-1.15); Partial Thromboplastin Time 25.9 SEC (24.5-34.5)
[2023-11-13] MEDS: MECLIZINE HCL 25 MG TAB PO ONE (15:34)
[2023-11-13 16:20] LABS: Free T3 3.88 pg/mL (2.3-4.2); Free T4 (Free Thyroxine) 1.07 ng/dL (0.89-1.76)
[2023-11-13] MEDS: MAGNESIUM SULFATE 1GM/100ML 100 ML IV ONE (17:51)
[2023-11-13] MEDS: FUROSEMIDE 20 MG TAB PO SCH (18:17)
[2023-11-13 19:30] VITALS: PULSE 80; RESP 12; O2SAT 98
[2023-11-13] MEDS: amLODIPine BESYLATE 5 MG TAB PO SCH (20:10)
[2023-11-13] MEDS: ATORVASTATIN 20 MG TAB PO SCH (21:58)
[2023-11-13] MEDS: MECLIZINE HCL 25 MG TAB PO SCH (21:59)
[2023-11-13] MEDS: SACUBITRIL-VALSARTAN 24mg/26mg TAB PO SCH (22:00)
[2023-11-13] MEDS ORDERED: ATORVASTATIN 20 MG TAB PO SCH (22:00)
[2023-11-13 23:50] VITALS: BP_SYST 142; BP_DIAS 72; BP_DIAS 75; PULSE 84; RESP 20; TEMP 97.3; O2SAT 99
[2023-11-14 00:39] LABS: Urine Bacteria NONE SEEN /hpf (None Seen); Urine Blood Negative /uL (Negative); Urine Clarity Clear (Clear); Urine Color Colorless (Yellow); Urine Protein, UAD Negative (Negative); Urine Specific Gravity 1.006 (1.001-1.035); Urine Urobilinogen Normal (Negative); Urine WBC <1 /hpf (0 - 5)
[2023-11-14 01:38] LABS: Amphetamine Screen, Urine Neg (NEGATIVE); Barbiturate Scree,Urine Neg (NEGATIVE); Benzodiazephine Screen, Urine Neg (NEGATIVE); Cannabinoid Screen, Urine Neg (NEGATIVE); Cocaine Screen, Urine Neg (NEGATIVE); Opiate Scree,Urine Neg (NEGATIVE); Phencyclidine Screen, Urine Neg (NEGATIVE)
[2023-11-14 05:00] VITALS: BP 116/60; PULSE 79; RESP 17; TEMP 97.6; O2SAT 100
[2023-11-14 05:54] LABS: Basophils # (auto) 0 10 ^3/uL (0-0.2); Basophils % (auto) 0.4 % (0.0-2.0); Eosinophils # (auto) 0.1 10 ^3/uL (0-0.8); Eosinophils % (auto) 1.9 % (0.0-7.0); Hematocrit 34.1 % (36.0-46.0); Hemoglobin 11.3 g/dL (12.2-16.2); Lymphocytes # (auto) 2.9 10 ^3/uL (0.4-5.4); Lymphocytes % (auto) 43.4 % (10.0-50.0); Mean Corpuscular Hemoglobin 30.8 pg (28.0-32.0); Mean Corpuscular Hgb Conc. 33.3 g/dL (32.0-36.0); Mean Corpuscular Volume 92.5 fL (80.0-100.0); Monocytes # (auto) 0.6 10 ^3/uL (0-1.3); Monocytes % (auto) 9.9 % (0.0-12.0); Neutrophils # (auto) 2.9 10 ^3/uL (1.6-8.6); Neutrophils % (auto) 44.4 % (37.0-80.0); Nucleated Red Blood Cells % 0.3 %; Red Blood Cells 3.69 10^6/uL (4.0-5.20); Red Cell Distribution Width 13.8 % (11.8-14.3); White Blood Cell 6.6 10^3/uL (4.4-10.8)
[2023-11-14 06:14] LABS: Alanine Aminotransferase 13 U/L (7-40); Albumin 3.3 g/dL (3.2-4.8); Alkaline Phosphatase 39 U/L (46-116); Anion Gap 7 (5-15); Aspartate Aminotransferase 13 U/L (13-40); BUN/Creatinine Ratio 11.9 (10.0-20.0); Bilirubin, Total 0.7 mg/dL (0.2-1.0); Blood Urea Nitrogen 13 mg/dL (9-23); Calcium 9.6 mg/dL (8.7-10.4); Carbon Dioxide 28 mmol/L (20-30); Chloride 104 mmol/L (98-107); Glucose 128 mg/dL (74-106); Potassium 3.7 mmol/L (3.5-5.1); Sodium 139 mmol/L (136-145); Total Protein 5.6 g/dL (5.7-8.2)
[2023-11-14 08:00] VITALS: PULSE 69; PULSE 70; RESP 18; O2SAT 95
[2023-11-14 09:00] VITALS: BP 106/49; PULSE 72; RESP 18; TEMP 98.3; O2SAT 100
[2023-11-14] MEDS ORDERED: VALSARTAN 80 MG TAB PO SCH ×2 (10:00)
[2023-11-14] MEDS: FAMOTIDINE 20 MG TAB PO SCH (10:30)
[2023-11-14] MEDS: ASPirin 81 mg TAB PO SCH (10:30)
[2023-11-14] MEDS ORDERED: ASPI1TAB20 PO (11:32)
[2023-11-14] MEDS: EMPAGLIFLOZIN 10 MG TAB PO SCH (12:36)
[2023-11-14] MEDS: SPIRONOLACTONE 25 MG TAB PO ONE (12:37)
[2023-11-14 12:49] VITALS: BP 121/58; PULSE 75; RESP 17; TEMP 98.4; O2SAT 95
[2023-11-14 13:17] VITALS: BP 126/54; PULSE 65; RESP 18; TEMP 97.8; O2SAT 95
[2023-11-14] MEDS ORDERED: CARV12.544 PO (14:04)
[2023-11-14] MEDS ORDERED: HYDR-4798 PO (14:08)
[2023-11-14] MEDS ORDERED: FAMO-12 PO (14:08)
[2023-11-15] MEDS ORDERED: SPIRONOLACTONE 25 MG TAB PO SCH (10:00)
== END 2023-11-14 15:00 | disposition home or self-care (01) | DRG 280 ==
LOC: ER 04:19 → EDBD 04:19 → TELE 07:08 → TELE-CENTR 23:01
PROVIDERS: ADMIT Internal Medicine Pulmonary Disease; ATTEND Internal Medicine Pulmonary Disease
DX: I16.0 Hypertensive urgency (principal); I21.A1 Myocardial infarction type 2; N17.0 Acute kidney failure with tubular necrosis; I50.22 Chronic systolic (congestive) heart failure; E11.65 Type 2 diabetes mellitus with hyperglycemia; E78.5 Hyperlipidemia, unspecified; E03.8 Other specified hypothyroidism; H81.10 Benign paroxysmal vertigo, unspecified ear; K21.9 Gastro-esophageal reflux disease without esophagitis; E11.42 Type 2 diabetes mellitus with diabetic polyneuropathy; I25.10 Atherosclerotic heart disease of native coronary artery without angina pectoris; I25.2 Old myocardial infarction; Z63.4 Disappearance and death of family member; Z90.710 Acquired absence of both cervix and uterus; Z83.3 Family history of diabetes mellitus; Z82.49 Family history of ischemic heart disease and other diseases of the circulatory system; I11.0 Hypertensive heart disease with heart failure
CPT/HCPCS: 36415; 70450; 71045; 80053; 80061; 80307; 81001; 82043; 82306; 82607; 82962; 83036; 83605; 83735; 83880; 84439; 84443; 84481; 84484; 85025; 85379; 85610; 85730; 87040; 93005; 93306; G0378; J1815

== ENCOUNTER 2024-03-20 00:02 | Emergency (ER) | payer OTHER ==
[~2024-03-20] VITALS: Ht 167.6 cm; Wt 113.6 kg
[~2024-03-20 00:02] MED LIST changes: -ALBUAER3 IN; +ASPI1TAB20 PO; -CAR3125T PO; +CARV12.544 PO; -CLOP75TA70 PO; -ENAL5TAB22 PO; +FAMO-12 PO; -FURO20TA3 PO; +HYDR-4798 PO; -NATE120T5 PO; -PANC3000 PO; -PIO30T PO; -RANI-226 PO; -SACU1TAB PO; -TERB250T74 PO
[2024-03-20 01:00] VITALS: PULSE 80; RESP 18; TEMP 97.5; O2SAT 97
[2024-03-20] MEDS: cloNIDine HCL 0.1 MG TAB PO ONE (01:14)
[2024-03-20] MEDS ORDERED: CLON0.1T PO (02:10)
[2024-03-20] MEDS: hydrALAZINE HCL 20 MG/ML VL IV ONE (02:26)
[2024-03-20 03:07] VITALS: BP 169/71; PULSE 71; RESP 14; O2SAT 96
== END 2024-03-20 03:17 | disposition home or self-care (01) ==
LOC: ER 00:02 → EDBD 00:02 → ER 01:17
DX: I11.0 Hypertensive heart disease with heart failure (principal); I50.89 Other heart failure; Z79.82 Long term (current) use of aspirin; Z79.84 Long term (current) use of oral hypoglycemic drugs; Z79.891 Long term (current) use of opiate analgesic; Z79.899 Other long term (current) drug therapy; Z90.49 Acquired absence of other specified parts of digestive tract; Z90.89 Acquired absence of other organs; Z90.710 Acquired absence of both cervix and uterus
CPT/HCPCS: 96374; 99285; J0360

== ENCOUNTER 2024-07-28 19:33 | Inpatient (IN) | payer OTHER, MEDICAID ==
[~2024-07-28] VITALS: Ht 167.6 cm; Wt 114.1 kg
[~2024-07-28 19:33] MED LIST changes: +CLON0.1T PO
[2024-07-28 20:16] VITALS: PULSE 64; RESP 14; O2SAT 98
[2024-07-28] MEDS: hydrALAZINE HCL 20 MG/ML VL IV ONE (20:21)
[2024-07-28 20:25] LABS: Basophils # (auto) 0 10 ^3/uL (0-0.2); Basophils % (auto) 0.4 % (0.0-2.0); Eosinophils # (auto) 0.2 10 ^3/uL (0-0.8); Eosinophils % (auto) 2.9 % (0.0-7.0); Hemoglobin 12.8 g/dL (12.2-16.2); Lymphocytes # (auto) 2.1 10 ^3/uL (0.4-5.4); Lymphocytes % (auto) 31.1 % (10.0-50.0); Mean Corpuscular Hemoglobin 31.3 pg (28.0-32.0); Mean Corpuscular Hgb Conc. 33.7 g/dL (32.0-36.0); Mean Corpuscular Volume 92.9 fL (80.0-100.0); Monocytes # (auto) 0.6 10 ^3/uL (0-1.3); Monocytes % (auto) 9.3 % (0.0-12.0); Neutrophils # (auto) 3.8 10 ^3/uL (1.6-8.6); Neutrophils % (auto) 56.3 % (37.0-80.0); Nucleated Red Blood Cells % 0.1 %; Platelet Count (auto) 201 10^3/uL (140-450); Red Blood Cells 4.09 10^6/uL (4.0-5.20); Red Cell Distribution Width 13.4 % (11.8-14.3); White Blood Cell 6.7 10^3/uL (4.4-10.8)
--- NOTE | 2024-07-28 20:25 | ED.PDOC ---
History of Present Illness HPI Comments 68-year-old female brought in by EMS from home complaining of an intermittent nosebleed from the right naris since 11:00 a.m.. Patient states the nosebleed started when she blew her nose, however has continued intermittently throughout the day. She notes that despite taking her blood pressure medication which includes lisinopril, carvedilol and clonidine prn, her blood pressure has been running high. She denies any pain, difficulty breathing, edema or other symptoms. She states she stopped taking Plavix 2 days ago. Chief Complaint: Nose Bleed Time Seen by MD: 19:37 Primary Care Provider: NONE Allergies: Coded Allergies: NO KNOWN ALLERGIES (Unverified , 09/10/14) Home Meds Active Scripts Clonidine Hydrochloride (Clonidine Hcl) 0.1 Mg Tab, 1 TAB PO QPM, #30 TAB 0 Refills Prov:NISH HUMMEL 03/20/24 Ranolazine (Ranexa) 500 Mg Tab, 500 MG PO BID, #60 TAB 5 Refills Prov:CESAR GRAY MD 08/08/22 Reported Medications Meclizine Hcl (Meclizine Hcl) 25 Mg Tab, 25 MG PO PRN for 30 Days, MG 07/29/24 Cholecalciferol (VITAMIN D3) 2,000 Unit Tab, 1 TAB PO DAILY, #30 TAB 5 Refills 07/29/24 Furosemide (Furosemide) 20 Mg Tab, 20 MG PO BIDD for 30 Days, MG 07/29/24 Lisinopril (Lisinopril) 10 Mg Tab, 10 MG PO DAILY for 30 Days, MG 07/29/24 Famotidine (Famotidine) 20 Mg Tab, 1 TAB PO BID 11/14/23 Carvedilol (Carvedilol) 12.5 Mg Tab, 1 TAB PO BID 11/14/23 Acarbose (Acarbose) 100 Mg Tab, 100 MG PO DAILY, TAB 01/16/18 Simvastatin (Simvastatin) 40 Mg Tab, 1 TAB PO QPM, #90 TAB 1 Refill 11/10/14 Metformin Hydrochloride (Metformin Hcl) 500 Mg Tab, 500 MG PO TID for 30 Days, MG 11/10/14 Glipizide (Glipizide) 10 Mg Tab, 1 TAB PO DAILY 11/10/14 Mode of Arrival: EMS Past Medical History PAST MEDICAL HISTORY: Angina, CAD, CHF, DM, HTN, MN Past Medical History (Other): Takotsubo's arteritis Surgical History: Cholecystectomy, Hysterectomy, Tonsillectomy [employer] History: Denies all [employer] Hx Family History Family History: Unknown Social History Smoker: Non-Smoker Alcohol: Denies ETOH Use Drugs: Denies Drug Use Lives In: Home All Other Systems: Reviewed and Negative (Comprehensive systems review obtained and negative except for what is stated in the HPI.) Physical Exam General Appearance: No Apparent Distress HEENT: Other (Pupils symmetric, no facial asymmetry, dried blood inside right naris. No acute epistaxis.) Neck: Full Range of Motion, Normal Inspection Respiratory: Lungs Clear, No Accessory Muscle Use, No Respiratory Distress, Normal Breath Sounds Cardiovascular: No JVD, Regular Rate/Rhythm Breast Exam: Deferred Gastrointestinal: Non Tender, Soft Genitalia: Deferred Pelvic: Deferred Rectal: Deferred Extremities: Normal inspection, Normal range of motion, Non-tender, Pedal edema Neurologic: Alert, No Motor Deficits, Normal Affect, Normal Mood, No Sensory Deficits Cerebellar Function: NOT DONE Reflexes: NOT DONE Skin: Dry, Normal Color, Warm Lymphatic: NOT DONE Was a procedure done? Was a procedure done?: No EKG EKG : Comments Sinus rhythm, rate 69, normal intervals, left axis deviation, old inferior or anteroseptal infarct, lateral T inversion with other nonspecific T changes Differential Dx Considerations may include: Sinus rhythm, rate 69, normal intervals, left axis deviation, old inferior or anteroseptal infarct, LVH, lateral T inversion with other nonspecific T change X-Ray, Labs, Meds, VS Vital Signs Date Time Temp Pulse Resp B/P (MAP) Pulse Ox O2 Delivery O2 Flow Rate FiO2 07/28/24 22:00 66 16 157/67 (97) 98 07/28/24 21:39 170/83 07/28/24 21:00 68 19 179/80 (113) 99 07/28/24 20:21 200/90 07/28/24 20:16 64 14 98 Room Air* 0 21 07/28/24 20:16 97.6 64 14 200/90 (126) 98 97.6 07/28/24 19:40 69 07/28/24 19:38 98.8 74 16 229/91 (137) 97 Lab Test 07/28/24 21:20 07/28/24 20:02 Range/Units Troponin I High Sensitivity 21 9 </=34 ng/L White Blood Count 6.7 4.4-10.8 10^3/uL Red Blood Count 4.09 4.0-5.20 10^6/uL Hemoglobin 12.8 12.2-16.2 g/dL Hematocrit 38.0 36.0-46.0 % Mean Corpuscular Volume 92.9 80.0-100.0 fL Mean Corpuscular Hemoglobin 31.3 28.0-32.0 pg Mean Corpuscular Hemoglobin Concent 33.7 32.0-36.0 g/dL Red Cell Distribution Width 13.4 11.8-14.3 % Platelet Count 201 140-450 10^3/uL Mean Platelet Volume 7.5 6.9-10.8 fL Neutrophils (%) (Auto) 56.3 37.0-80.0 % Lymphocytes (%) (Auto) 31.1 10.0-50.0 % Monocytes (%) (Auto) 9.3 0.0-12.0 % Eosinophils (%) (Auto) 2.9 0.0-7.0 % Basophils (%) (Auto) 0.4 0.0-2.0 % Neutrophils # (Auto) 3.8 1.6-8.6 10 ^3/uL Lymphocytes # (Auto) 2.1 0.4-5.4 10 ^3/uL Monocytes # (Auto) 0.6 0-1.3 10 ^3/uL Eosinophils # (Auto) 0.2 0-0.8 10 ^3/uL Basophils # (Auto) 0 0-0.2 10 ^3/uL Nucleated Red Blood Cells 0.1 % Prothrombin Time 11.2 9.3-11.8 sec Prothrombin Time INR 1.06 0.9-1.15 Activated Partial Thromboplast Time 25.0 24.5-34.5 SEC Sodium Level 140 136-145 mmol/L Potassium Level 4.1 3.5-5.1 mmol/L Chloride Level 105 98-107 mmol/L Carbon Dioxide Level 28 20-31 mmol/L Anion Gap 7 5-15 Blood Urea Nitrogen 19 9-23 mg/dL Creatinine 0.96 0.550-1.02 mg/dL Glomerular Filtration Rate Calc 65 >90 mL/min BUN/Creatinine Ratio 19.8 10.0-20.0 Serum Glucose 156 H 74-106 mg/dL Calcium Level 9.8 8.7-10.4 mg/dL B-Type Natriuretic Peptide 178.26 0-100 pg/mL Current Medications Medications (Trade) Dose Ordered Sig/Rama Route Start Time Stop Time Status Last Admin Hydralazine HCl (Apresoline Injection) 10 mg ONCE ONCE IV 07/28/24 20:00 07/28/24 20:01 DC 07/28/24 20:21 Enalaprilat (Vasotec Injection) 1.25 mg ONCE ONCE IV 07/28/24 21:30 07/28/24 21:31 DC 07/28/24 21:39 PROCEDURE(s): CXRP - CHEST PORTABLE REASON: high bp ORDER NUMBER(s): [id number], ACCESSION NUMBER(s): [id number] CHEST RADIOGRAPH Indication: high bp Technique: Single frontal view of the chest was obtained Comparison: XY CHEST PORTABLE on DOS: 11/13/23, CXRP on DOS: 08/12/22, CXRP on DOS: 08/05/22 FINDINGS: Lines and Tubes: None Lungs: Clear Pleura: No effusion. No pneumothorax. Cardiomediastinal contours: Unremarkable Bones: Unremarkable IMPRESSION: 1. Clear lungs. ATED BY: KAYLEIGH BISHOP DO X-Ray, Labs, Meds, VS Comment 68-year-old female with a history of hypertension, diabetes, dyslipidemia, CHF, takotsubo arteritis and prior MN presenting with epistaxis and elevated blood pressure Vitals remarkable for BP 229/91 Exam remarkable for dried blood inside right naris, no acute epistaxis Rhythm strip independently interpreted by me: Sinus rhythm, rate 69, no ectopy. EKG sinus rhythm, lateral T inversion with other nonspecific T changes Chest x-ray unremarkable CBC, basic metabolic panel, coagulation panel, troponin unremarkable for any abnormality of acute significance BNP 178.26 Patient treated with the following in the ED: Hydralazine 10 mg IV On re-evaluation after hydralazine, BP is still 179/80. Other vitals were stable, and patient is no longer bleeding. Vasotec 1.25 mg IV was ordered. Plan is to admit the patient for blood pressure control. Time of 1ST Reevaluation: 20:24 Reevaluation 1ST: Improved Time of 2ND Reevaluation: 21:24 Reevaluation 2ND: Improved Patient Education/Counseling: Diagnosis, Treatment Family Education/Counseling: No Family Present Departure 1 Departure Time of Disposition: 21:25 Impression: Primary Impression: Hypertensive urgency Additional Impression: Epistaxis Disposition: ADMITTED INPATIENT Admit to: Tele Condition: Guarded Critical Care Note Critical Care Time?: Yes (35 min-critical care time only) Critical care comment: Critical care time including multiple bedside re-evaluations, review of lab and imaging studies, and discussion of the case with the admitting provider. Patient is high risk for hemodynamic decompensation. Stability Stability form required: No Heart Score Heart Score: Heart Score Response (Comments) Value History N/A 0 EKG N/A 0 Age N/A 0 Risk Factors N/A 0 Troponin N/A 0 Total 0 ALMA MCKEON MD Jul 28, 2024 20:25
[2024-07-28 20:30] LABS: Chloride 105 mmol/L (98-107); Potassium 4.1 mmol/L (3.5-5.1); Sodium 140 mmol/L (136-145)
[2024-07-28 20:31] LABS: Anion Gap 7 (5-15); Calcium 9.8 mg/dL (8.7-10.4); Carbon Dioxide 28 mmol/L (20-31)
[2024-07-28 20:36] LABS: BUN/Creatinine Ratio 19.8 (10.0-20.0); Blood Urea Nitrogen 19 mg/dL (9-23); Glucose 156 mg/dL (74-106)
--- NOTE | 2024-07-28 20:37 | DVH ---
CHEST RADIOGRAPH Indication: high bp Technique: Single frontal view of the chest was obtained Comparison: XY CHEST PORTABLE on DOS: 11/13/23, CXRP on DOS: 08/12/22, CXRP on DOS: 08/05/22 FINDINGS: Lines and Tubes: None Lungs: Clear Pleura: No effusion. No pneumothorax. Cardiomediastinal contours: Unremarkable Bones: Unremarkable IMPRESSION: 1. Clear lungs.
[2024-07-28 20:47] LABS: INR 1.06 (0.9-1.15); Prothrombin Time 11.2 sec (9.3-11.8)
[2024-07-28] MEDS: ENALAPRILAT 1.25 MG/ML-1ML VIAL IV ONE (21:39)
[2024-07-28] MEDS ORDERED: TEMAZEPAM 15 MG CAP PO PRN (22:15)
[2024-07-28] MEDS ORDERED: ONDANSETRON HCL 4 MG/2 ML VIAL IV PRN (22:15)
[2024-07-28] MEDS ORDERED: MORPHINE SULFATE INJ 2 MG/ml SYRG IV PRN (22:15)
[2024-07-28] MEDS ORDERED: NITROGLYCERIN 0.4 MG SL TAB SL PRN (22:15)
[2024-07-28 23:14] VITALS: BP 162/72; PULSE 69; RESP 18; TEMP 97.6; O2SAT 100
[2024-07-28] MEDS: ACETAMINOPHEN 325 MG TAB PO PRN (23:53)
[2024-07-28] MEDS: hydrALAZINE HCL 20 MG/ML VL IV PRN (23:54)
[2024-07-29] VITALS (7 sets, daily range): BP systolic 94–152; BP diastolic 43–57; PULSE 61–71; RESP 18–20; TEMP 97.9–98.8; O2SAT 98–100
[2024-07-29] MEDS ORDERED: MECL-90 PO (00:02)
[2024-07-29] MEDS ORDERED: LISI10TA34 PO (00:02)
[2024-07-29] MEDS ORDERED: CHOL20007 PO (00:02)
[2024-07-29] MEDS ORDERED: CLOP75TA70 PO (00:02)
[2024-07-29] MEDS ORDERED: FURO20TA3 PO (00:02)
--- NOTE | 2024-07-29 01:29 | DVHHP2 ---
History of Present Illness Reason for Visit: Nosebleed History of Present Illness 68-year-old female presents for evaluation of nosebleed. Patient presents with a one day history of intermittent nosebleed. On arrival to the emergency department patient was noted to be hypertensive greater than 200. She denies headache or blurred vision. Bleeding was controlled in the emergency department . Past Medical History Diabetes mellitus, CHF, CAD, hypertension, mi Past Surgical History Hysterectomy, tonsillectomy and cholecystectomy Family History Noncontributory Smoke: No ALCOHOL: none Drugs: None Review of Systems Review of Systems Review of systems are currently negative otherwise addressed in HPI. Allergies: Coded Allergies: NO KNOWN ALLERGIES (Unverified , 09/10/14) Medications Current Medications Medications Dose Ordered Sig/Rama Route Start Time Stop Time Status Last Admin Dose Admin Carvedilol 12.5 mg Q12HR PO 07/29/24 10:00 Atorvastatin Calcium 40 mg HS PO 07/29/24 22:00 Ranolazine 500 mg BID PO 07/29/24 10:00 Aspirin 81 mg DAILY PO 07/29/24 10:00 Clonidine HCl 0.1 mg HS PO 07/29/24 22:00 Hydralazine HCl 10 mg Q6HP PRN IV 07/28/24 22:15 07/28/24 23:54 10 MG Temazepam 15 mg QHSP PRN PO 07/28/24 22:15 Ondansetron HCl 4 mg Q4HP PRN IV 07/28/24 22:15 Acetaminophen 650 mg Q6HP PRN PO 07/28/24 22:15 07/28/24 23:53 650 MG Nitroglycerin 0.4 mg Q5MINP PRN SL 07/28/24 22:15 Morphine Sulfate 2 mg Q30M PRN IV 07/28/24 22:15 Exam Vital Signs Vital Signs Date Time Temp Pulse Resp B/P (MAP) Pulse Ox O2 Delivery O2 Flow Rate FiO2 07/28/24 23:54 162/72 07/28/24 23:14 97.6 69 18 100 97.6 07/28/24 23:14 Room Air* 0 21 Exam Gen: 68-year-old female in no apparent distress Skin: Warm, dry, normal color and texture, no rash. HEENT: Normocephalic atraumatic, mucous membranes moist and pink. Neck: Cervical and supraclavicular nodes normal without enlargement, trachea is midline, thyroid gland is normal without masses. Pulmonary: Clear to auscultation and percussion bilaterally. Cardiac: Regular rate and rhythm. No murmur Abdomen: Soft, nontender, nondistended, bowel sounds present all 4 quadrants, no guarding, no rigidity, no organomegaly. Extremities: No cyanosis, clubbing, no edema Neuro: Cranial nerves II through XII grossly intact, normal affect and speech, no focal motor deficits. Labs/Xrays ORDERING PHYSICIAN: CLAUDE HITCHCOCK NP PROCEDURE(s): ECIDC - ECHO 2D MODE CARDIAC DOP REASON: ef ORDER NUMBER(s): [id number], ACCESSION NUMBER(s): [id number] APPROVED REPORT EXAM: Two-dimensional and M-mode echocardiogram with Doppler and color Doppler. Blood Pressure: 183/88 mmHg INDICATION EF RISK FACTORS Height: 67, Weight: 264 DIMENSIONS LVDd 4.6 (3.8-5.7cm) LA (2D) 4.2 (1.9-4.0cm) Aortic Root 3.6 (2.0- 3.7cm) LVDs 3.6 (2.5-4.0cm) LA (MM) (1.9-4.0cm) Aortic Cusp Exc 1.5 (1.5- 2.0cm) EF (%) 55.0 (55-70%) Rt. Atrium 4.3 (1.9-4.0cm) Asc. Aorta cm IVSd 1.1 (0.7-1.1cm) RV (D) (1.8-2.4cm) PWd 1.4 (0.7-1.1cm) Mitral Valve Mitral Mitral Stenosis E wave 0.80m/s MV Mean GR. mmHg A wave 1.21m/s MV Peak GR. 59mmHg E/A ratio 0.7 2D MVA cm2 DECEL Time 281ms PRESS 1/2 Time 78ms IVRT ms Dop MVA 2.81cm2 Aortic Valve Aortic Valve Aortic Stenosis V1 1.14m/s AO Mean GR. 5mmHg V2 1.50m/s AO Peak GR. 9mmHg LVOT Diameter 2.2 (1.8-2.4cm) Doppler WILLIAM 2.89cm2 LEFT VENTRICLE The left ventricle is normal size. The left ventricle is normal in structure and function. The Ejection Fraction is 55-60%. RIGHT VENTRICLE The right ventricle is normal size. ATRIA The left atrial size is normal. The right atrium size is normal. MITRAL VALVE The mitral valve is normal in structure and function. There is no mitral valve stenosis. There is no mitral valve regurgitation noted. PULMONIC VALVE The pulmonic valve is not well visualized. TRICUSPID VALVE There is trace tricuspid regurgitation. There is no tricuspid valve stenosis. AORTIC VALVE The aortic valve is normal in structure and function. No aortic regurgitation is present. There is no aortic valvular stenosis. GREAT VESSELS The aortic root is normal size. PERICARDIAL EFFUSION There is a no pericardial effusion. Other Information Technically limited study due to body habitus. Patient laying flat. Conclusion The left ventricle is normal size. The left ventricle is normal in structure and function. The ejection Fraction is 55%. There is no gross valvular pathology. There is no pericardial effusion. SIGNED BY: YUDELKA BHANDARI MD SIGNED DATE/TIME: 11/16/23 1322 CC: ORDERING PHYSICIAN: ALMA MCKEON MD PROCEDURE(s): CXRP - CHEST PORTABLE REASON: high bp ORDER NUMBER(s): [id number], ACCESSION NUMBER(s): [id number] CHEST RADIOGRAPH Indication: high bp Technique: Single frontal view of the chest was obtained Comparison: XY CHEST PORTABLE on DOS: 11/13/23, CXRP on DOS: 08/12/22, CXRP on DOS : 08/05/22 FINDINGS: Lines and Tubes: None Lungs: Clear Pleura: No effusion. No pneumothorax. Cardiomediastinal contours: Unremarkable Bones: Unremarkable IMPRESSION: 1. Clear lungs. Labs Test 07/28/24 21:20 07/28/24 20:02 Range/Units Troponin I High Sensitivity 21 </=34 ng/L White Blood Count 6.7 4.4-10.8 10^3/uL Red Blood Count 4.09 4.0-5.20 10^6/uL Hemoglobin 12.8 12.2-16.2 g/dL Hematocrit 38.0 36.0-46.0 % Mean Corpuscular Volume 92.9 80.0-100.0 fL Mean Corpuscular Hemoglobin 31.3 28.0-32.0 pg Mean Corpuscular Hemoglobin Concent 33.7 32.0-36.0 g/dL Red Cell Distribution Width 13.4 11.8-14.3 % Platelet Count 201 140-450 10^3/uL Mean Platelet Volume 7.5 6.9-10.8 fL Neutrophils (%) (Auto) 56.3 37.0-80.0 % Lymphocytes (%) (Auto) 31.1 10.0-50.0 % Monocytes (%) (Auto) 9.3 0.0-12.0 % Eosinophils (%) (Auto) 2.9 0.0-7.0 % Basophils (%) (Auto) 0.4 0.0-2.0 % Neutrophils # (Auto) 3.8 1.6-8.6 10 ^3/uL Lymphocytes # (Auto) 2.1 0.4-5.4 10 ^3/uL Monocytes # (Auto) 0.6 0-1.3 10 ^3/uL Eosinophils # (Auto) 0.2 0-0.8 10 ^3/uL Basophils # (Auto) 0 0-0.2 10 ^3/uL Nucleated Red Blood Cells 0.1 % Prothrombin Time 11.2 9.3-11.8 sec Prothrombin Time INR 1.06 0.9-1.15 Activated Partial Thromboplast Time 25.0 24.5-34.5 SEC Sodium Level 140 136-145 mmol/L Potassium Level 4.1 3.5-5.1 mmol/L Chloride Level 105 98-107 mmol/L Carbon Dioxide Level 28 20-31 mmol/L Anion Gap 7 5-15 Blood Urea Nitrogen 19 9-23 mg/dL Creatinine 0.96 0.550-1.02 mg/dL Glomerular Filtration Rate Calc 65 >90 mL/min BUN/Creatinine Ratio 19.8 10.0-20.0 Serum Glucose 156 H 74-106 mg/dL Calcium Level 9.8 8.7-10.4 mg/dL B-Type Natriuretic Peptide 178.26 0-100 pg/mL Assessment/Plan Assessment/Plan Assessment Hypertensive urgency Diabetes mellitus Epistaxis Morbid obesity Plan Admit the patient to telemetry to the hospitalist As needed antihypertensives Resume home medications Continue treatment per orders. Plan discussed with: Patient My Orders Orders - CLAUDE HITCHCOCK Procedure Category Date Status Time Carvedilol Tablet PHA 07/29/24 In Process (Coreg Tablet) 10:00 Atorvastatin (Lipitor) PHA 07/29/24 In Process 22:00 Ranolazine (Ranexa Er) PHA 07/29/24 In Process 10:00 Aspirin Tablet PHA 07/29/24 In Process 10:00 Clonidine Hcl Tablet PHA 07/29/24 In Process (Catapres Tablet) 22:00 Hydralazine Injection PHA 07/28/24 In Process (Apresoline Inject 22:15 Basic Metabolic Panel LAB 07/29/24 Logged 04:00 Admit ADMIT 07/28/24 Transmitted 22:08 Temazepam (Restoril) PHA 07/28/24 In Process 22:15 Ondansetron Hcl PHA 07/28/24 In Process (Zofran) 22:15 Cardiac DIET 07/29/24 Transmitted Diet-2gna,Lofat,Lochol Breakfast Condition: Stable SHIRA 07/28/24 In Process 22:08 Acetaminophen Tablet PHA 07/28/24 In Process (Tylenol Tablet) 22:15 Bedrest With Bathroom SHIRA 07/28/24 In Process Privileg 22:08 Nitroglycerin PHA 07/28/24 In Process Sublingual (Ntrostat 22:15 Morphine Sulfate PHA 07/28/24 In Process Injection 22:15 Stat Ekg For Chest SHIRA 07/28/24 In Process Pain 22:08 Notify Md Of Changes SHIRA 07/28/24 In Process From Base 22:08 Digester Capper For SHIRA 07/28/24 In Process 24 Hours 22:08 Emergency Dysrhythmia SHIRA 07/28/24 In Process Protocol 22:08 Rhythm Strips Once SHIRA 07/28/24 In Process Every Shift 22:08 Oxygen By Nasal RT 07/28/24 Transmitted Cannula 22:08 Hepatitis B Surface LAB 07/28/24 Logged Antigen 23:56 Hepatitis C Antibody LAB 07/28/24 Logged 23:56 Date of Service: Jul 28, 2024 Billing Provider: CLAUDE HITCHCOCK Common Visit Codes: [id number] INP/OBS CARE (HIGH) CLAUDE HITCHCOCK Jul 29, 2024 01:29
--- NOTE | 2024-07-29 06:57 | ECG ---
[facility] Test Date: 2024-07-28 Test Time: 19:40:18 Pat Name: BLANCA MEEHAN Department: ER Room: 0250T B Gender: F Manager Cardiovascular: : 1955 Requested By: ALMA OSORIO Order Number: [id number] Reading MD: Naren Oliver Measurements Intervals [place] Rate: 69 P: 39 OH: 159 QRS: -35 QRSD: 106 T: 7 QT: 409 QTc: 438 Interpretive Statements Sinus rhythm Ventricular premature complex Low voltage, precordial leads Left ventricular hypertrophy Anterior Q waves, possibly due to LVH Electronically Signed On 07-30-2024 8:26:04 PST by Naren Oliver Please click the below link to view image of tracing.
[2024-07-29 07:29] LABS: Chloride 108 mmol/L (98-107); Sodium 141 mmol/L (136-145)
[2024-07-29 07:30] LABS: Anion Gap 5 (5-15); Calcium 9.6 mg/dL (8.7-10.4); Carbon Dioxide 28 mmol/L (20-31)
[2024-07-29 07:35] LABS: BUN/Creatinine Ratio 20.7 (10.0-20.0); Blood Urea Nitrogen 17 mg/dL (9-23); Glucose 141 mg/dL (74-106)
[2024-07-29] MEDS: CARVEDILOL 12.5 MG TAB PO SCH (10:22)
[2024-07-29] MEDS: ASPirin 81 mg TAB PO SCH (10:23)
[2024-07-29] MEDS: RANOLAZINE ER 500 MG TAB PO SCH (10:23)
[2024-07-29 10:48] LABS: Hepatitis B Surface Antigen Negative (Negative)
[2024-07-29 11:10] LABS: Hepatitis C Antibody Negative (Negative)
--- NOTE | 2024-07-29 12:04 | DVHDS2 ---
Discharge Summary Date of Admission Jul 28, 2024 at 22:08 Date of Discharge: Jul 29, 2024 Admitting Diagnosis Hypertensive urgency Labs/Diagnostic Data: Laboratory Results Test 07/29/24 06:29 07/28/24 21:20 07/28/24 20:02 Sodium Level 141 mmol/L (136-145) Potassium Level 4.0 mmol/L (3.5-5.1) Chloride Level 108 mmol/L (98-107) Carbon Dioxide Level 28 mmol/L (20-31) Anion Gap 5 (5-15) Blood Urea Nitrogen 17 mg/dL (9-23) Creatinine 0.82 mg/dL (0.550-1.02) Glomerular Filtration Rate Calc 78 mL/min (>90) BUN/Creatinine Ratio 20.7 (10.0-20.0) Serum Glucose 141 mg/dL (74-106) Calcium Level 9.6 mg/dL (8.7-10.4) Hepatitis B Surface Antigen Negative (Negative) Hepatitis C Antibody Negative (Negative) Troponin I High Sensitivity 21 ng/L (</=34) White Blood Count 6.7 10^3/uL (4.4-10.8) Red Blood Count 4.09 10^6/uL (4.0-5.20) Hemoglobin 12.8 g/dL (12.2-16.2) Hematocrit 38.0 % (36.0-46.0) Mean Corpuscular Volume 92.9 fL (80.0-100.0) Mean Corpuscular Hemoglobin 31.3 pg (28.0-32.0) Mean Corpuscular Hemoglobin Concent 33.7 g/dL (32.0-36.0) Red Cell Distribution Width 13.4 % (11.8-14.3) Platelet Count 201 10^3/uL (140-450) Mean Platelet Volume 7.5 fL (6.9-10.8) Neutrophils (%) (Auto) 56.3 % (37.0-80.0) Lymphocytes (%) (Auto) 31.1 % (10.0-50.0) Monocytes (%) (Auto) 9.3 % (0.0-12.0) Eosinophils (%) (Auto) 2.9 % (0.0-7.0) Basophils (%) (Auto) 0.4 % (0.0-2.0) Neutrophils # (Auto) 3.8 10 ^3/uL (1.6-8.6) Lymphocytes # (Auto) 2.1 10 ^3/uL (0.4-5.4) Monocytes # (Auto) 0.6 10 ^3/uL (0-1.3) Eosinophils # (Auto) 0.2 10 ^3/uL (0-0.8) Basophils # (Auto) 0 10 ^3/uL (0-0.2) Nucleated Red Blood Cells 0.1 % Prothrombin Time 11.2 sec (9.3-11.8) Prothrombin Time INR 1.06 (0.9-1.15) Activated Partial Thromboplast Time 25.0 SEC (24.5-34.5) B-Type Natriuretic Peptide 178.26 pg/mL (0-100) Other Laboratory Tests 07/29/24 06:29 07/28/24 20:02 Brief Hx & Hospital Course: History of Present Illness 68-year-old female presents for evaluation of nosebleed. Patient presents with a one day history of intermittent nosebleed. On arrival to the emergency department patient was noted to be hypertensive greater than 200. She denies headache or blurred vision. Bleeding was controlled in the emergency department . Course of hospitalization: Patient was nosebleed has subsided. Patient was blood pressure has improved to be normotensive. Patient denies having any other symptoms. Long discussion was made with the patient's medical history and current providers. Given her medical history, patient states that she does not want to be on hospice anymore. She was instructed to contact her PCP to assist with discontinuing hospice. She was recommended to continue all previous home medications for blood pressure. All questions answered. Physical exam General: Alert and Oriented x3. No acute distress. Well-nourished. Eyes: EOMI. Anicteric. HENT: Moist mucous membranes. Lungs: Clear to auscultation bilaterally. No accessory muscle use. Cardiovascular: Regular rate and rhythm. No murmur. No JVD. Abdomen: Soft, non-tender and non-distended. No palpable masses. Extremities: No edema. Non-tender. Skin: No rashes or lesions. Warm. Neurologic: No focal neurological deficits. CN II-XII grossly intact, but not individually tested. Psychiatric: Cooperative. Appropriate mood and affect. Total time spent with patient discussing and formulating plan of care: 35 minutes. This medical document was created using an electronic medical record system with [employer] dictation system. Although this document has been carefully reviewed, there may still be some phonetic and typographical errors. These areas are purely typographical due to imperfections of the software programs, and do not reflect any compromise in the patient's medical care. Condition at Discharge: Fair Final Diagnosis/Problems List Hypertensive crisis, epistaxis Secondary Diagnosis: Diabetes mellitus History of takotsubo cardiomyopathy -primary hypertension Discharge Disposition: Home Discharge Instruct/Medications Diet: Cardiac 2g Na,low cholest Activity: No Restrictions, As Tolerated Follow Up/Referral: Follow up with PCP and nurse earliest appointment to go over all her home medications given hospice provider may have interfered with care. Medications: Continue all previous home medications 36 Discharge Statement: "Patient was advised to return to the ER or call 911 if any headaches, dizziness, shortness of breath, chest pain, abdominal pain, bleeding, fevers, or worsening of medical condition. Patient was counseled about treatment plan, medications, possible side effects, patientverbalized understanding. All questions were answered to the best of my ability. This discharge took greater then 30 minutes in planning, reviewing documentation, counseling the patient, and discussing with other team members." ASSESSMENT ASSESSMENT Assessment Hypertensive crisis, epistaxis Date of Service: Jul 29, 2024 Billing Provider: MESERET VALERO NP Common Visit Codes: [id number] DISCH DAY >30min MESERET VALERO NP Jul 29, 2024 12:04
[2024-07-29] MEDS ORDERED: cloNIDine HCL 0.1 MG TAB PO SCH (22:00)
[2024-07-29] MEDS ORDERED: ATORVASTATIN 20 MG TAB PO SCH (22:00)
== END 2024-07-29 14:00 | disposition home or self-care (01) | DRG 305 ==
LOC: ER 19:33 → EDBD 19:33 → TELE 22:08 → TELE-EAST 23:14
PROVIDERS: ADMIT Nurse Practitioner; ATTEND Nurse Practitioner Acute Care
DX: I16.9 Hypertensive crisis, unspecified (principal); Z68.41 Body mass index [BMI] 40.0-44.9, adult; R04.0 Epistaxis; E11.9 Type 2 diabetes mellitus without complications; I25.10 Atherosclerotic heart disease of native coronary artery without angina pectoris; I11.0 Hypertensive heart disease with heart failure; I50.9 Heart failure, unspecified; E66.01 Morbid (severe) obesity due to excess calories; Z90.710 Acquired absence of both cervix and uterus; Z90.49 Acquired absence of other specified parts of digestive tract; I25.2 Old myocardial infarction
CPT/HCPCS: 36415; 71045; 80048; 83880; 84484; 85025; 85610; 85730; 86803; 87340; 93005; 99291; G0378

== ENCOUNTER 2024-07-30 09:28 | Emergency (ER) | payer OTHER, MEDICAID ==
[~2024-07-30] VITALS: Ht 170.2 cm; Wt 115.0 kg
[~2024-07-30 09:28] MED LIST changes: -ASPI1TAB20 PO; +CHOL20007 PO; +FURO20TA3 PO; -HYDR-4798 PO; +LISI10TA34 PO; +MECL-90 PO
--- NOTE | 2024-07-30 09:55 | ED.PDOC ---
Epistaxis- HPI HPI Comments 68-year-old female presents with a chief complaint of nose bleed and hypertension x onset 0815 this morning. Patient was recently seen here and discharged from this facility for the same chief complaint. Patient is now experiencing again a nose bleed from the right nares. Patients BP was elevated according to EMS at 211/112, rechecked at 227/102, and then on arrival to ER at 192/97. Patient mentions that she took a clonidine at 0815. Bleeding from her nose began at 0840. Patient endorses that she took Plavix on . Chief Complaint: Nose Bleed Time Seen by MD: 09:49 Primary Care Provider: khurram Coon Notes: Medications, Allergies Allergies: Coded Allergies: NO KNOWN ALLERGIES (Unverified , 09/10/14) Home Meds Active Scripts Clonidine Hydrochloride (Clonidine Hcl) 0.1 Mg Tab, 1 TAB PO QPM, #30 TAB 0 Refills Prov:NISH HUMMEL 03/20/24 Ranolazine (Ranexa) 500 Mg Tab, 500 MG PO BID, #60 TAB 5 Refills Prov:CESAR GRAY MD 08/08/22 Reported Medications Meclizine Hcl (Meclizine Hcl) 25 Mg Tab, 25 MG PO PRN for 30 Days, MG 07/29/24 Cholecalciferol (VITAMIN D3) 2,000 Unit Tab, 1 TAB PO DAILY, #30 TAB 5 Refills 07/29/24 Furosemide (Furosemide) 20 Mg Tab, 20 MG PO BIDD for 30 Days, MG 07/29/24 Lisinopril (Lisinopril) 10 Mg Tab, 10 MG PO DAILY for 30 Days, MG 07/29/24 Famotidine (Famotidine) 20 Mg Tab, 1 TAB PO BID 11/14/23 Carvedilol (Carvedilol) 12.5 Mg Tab, 1 TAB PO BID 11/14/23 Acarbose (Acarbose) 100 Mg Tab, 100 MG PO DAILY, TAB 01/16/18 Simvastatin (Simvastatin) 40 Mg Tab, 1 TAB PO QPM, #90 TAB 1 Refill 11/10/14 Metformin Hydrochloride (Metformin Hcl) 500 Mg Tab, 500 MG PO TID for 30 Days, MG 11/10/14 Glipizide (Glipizide) 10 Mg Tab, 1 TAB PO DAILY 11/10/14 Information Source: Patient, Emergency Med Personnel Mode of Arrival: EMS Severity: Bleeding Controlled Timing: Minutes Duration: Since onset Prehospital treatment: None Location: Right naris Mechanism: Spontaneous onset Circumstances: Unknown Use of: None (Plavix ) History of: Nasal bleeding, HTN Last Tetanus: Unknown Nose: Normal Bleeding Status: Active bleeding Bleeding Amount: Mild Source: Unidentified Associated signs and symptoms: None Past Medical History PAST MEDICAL HISTORY: Angina, CAD, CHF, DM, HTN, [place] Surgical History: Cholecystectomy, Hysterectomy, Tonsillectomy PHOTO GRAPHICS LIBRARIAN History: Denies all PHOTO GRAPHICS LIBRARIAN Hx Family History Family History: Unknown Social History Smoker: Non-Smoker Alcohol: Denies ETOH Use Drugs: Denies Drug Use Lives In: Home Constitutional: denies: chills, diaphoresis, fatigue, fever, malaise, sweats, weakness, others EENTM: reports: nose bleeding; denies: blurred vision, double vision, ear bleeding, ear discharge, ear drainage, ear pain, ear ringing, eye pain, eye redness, hearing loss, mouth pain, mouth swelling, nasal discharge, nose congestion, nose pain, photophobia, tearing, throat pain, throat swelling, voice changes, others Respiratory: denies: cough, hemoptysis, orthopnea, SOB at rest, shortness of breath, SOB with excertion, stridor, wheezing, others Cardiovascular: reports: others (HYPERTENSIVE); denies: chest pain, dizzy spells, diaphoresis, Dyspnea on exertion, edema, irregular heart beat, left arm pain, lightheadedness, palpitations, PND, syncope Gastrointestinal: denies: abdomen distended, abdominal pain, blood streaked bowels, constipated, diarrhea, dysphagia, difficulty swallowing, hematemesis, melena, nausea, poor appetite, poor fluid intake, rectal bleeding, rectal pain, vomiting, others Genitourinary: denies: abnormal vagina bleeding, burning, dyspareunia, dysuria, flank pain, frequency, hematuria, incontinence, pain, , vagina discharge, urgency, others Neurological: denies: dizziness, fainting, headache, left sided numbness, left sided weakness, numbness, paresthesia, pre-existing deficit, right sided numbness, right sided weakness, seizure, speech problems, tingling, tremors, weakness, others Musculoskeletal: denies: back pain, gout, joint pain, joint swelling, muscle pain, muscle stiffness, neck pain, others Integumetry: denies: bruises, change in color, change in hair/nails, dryness, laceration, lesions, lumps, rash, wounds, others Allergic/Immunocompromised: denies: Difficulty Healing, Frequent Infections, Hives, Itching, others Hematologic/Lymphatic: denies: anemia, blood clots, easy bleeding, easy bruising, swollen glands, others Endocrine: denies: excessive hunger, excessive sweating, excessive thirst, excessive urination, flushing, intolerance to cold, intolerance to heat, unexplained weight gain, unexplained weight loss, others Psychiatric: denies: anxiety, bipolar disorder, depression, hopeless, panic disorder, schizophrenia, sleepless, suicidal, others All Other Systems: Reviewed and Negative Physical Exam General Appearance: No Apparent Distress, Normal HEENT: Normal ENT Inspection, Pharynx Normal, TMs Normal Neck: Full Range of Motion, Non-Tender, Normal, Normal Inspection Respiratory: Chest Non-Tender, Lungs Clear, No Accessory Muscle Use, No Respiratory Distress, Normal Breath Sounds Cardiovascular: No Edema, No JVD, No Murmur, No Gallop, Normal Peripheral Pulses, Regular Rate/Rhythm Breast Exam: Deferred Gastrointestinal: No Organomegaly, Non Tender, No Pulsatile Mass, Normal Bowel Sounds, Soft Genitalia: Deferred Pelvic: Deferred Rectal: Deferred Extremities: No calf tenderness, Normal capillary refill, Normal inspection, Normal range of motion, Non-tender, No pedal edema Musculoskeletal : Apperance: Normal 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 Was a procedure done?: No Differential Diagnosis (NSB) Differential Diagnosis: Anterior Nasal Bleed X-Ray, Labs, Meds, VS Vital Signs Date Time Temp Pulse Resp B/P (MAP) Pulse Ox O2 Delivery O2 Flow Rate FiO2 07/30/24 12:01 62 14 179/68 (105) 98 07/30/24 10:27 70 19 95 Room Air* 0 21 07/30/24 10:01 74 97 170/68 (102) 12 07/30/24 09:48 79 07/30/24 09:41 98.7 83 17 192/38 (137) 38 Time of 1ST Reevaluation: 10:19 Reevaluation 1ST: Unchanged Patient Education/Counseling: Diagnosis, Treatment, Prognosis Family Education/Counseling: No Family Present Departure 1 Departure Time of Disposition: 13:24 (Patient with anterior nosebleed that has now stopped after direct pressure. We will discharge patient home with outpatient follow up) Impression: Primary Impression: Acute anterior epistaxis Disposition: HOME / SELF CARE / HOMELESS Condition: Stable Additional Instructions: You had a nosebleed. It has stopped. Do not blow your nose. You should follow up with your regular doctor within one week to ensure you are doing well. If your symptoms worsen or you have any concerns then please return to the ER. Discharged With: Self Critical Care Note Critical Care Time?: No Stability Stability form required: No I personally scribed for ORLANDO DICKEY MD ([email or web address]) on 07/30/24 at 09:55. El ectronically submitted by Anand John ([email or web address]). ORLANDO DICKEY MD Jul 30, 2024 09:55
[2024-07-30 10:27] VITALS: PULSE 70; RESP 19; O2SAT 95
[2024-07-30 12:01] VITALS: BP 179/68; PULSE 62; RESP 14; O2SAT 98
--- NOTE | 2024-07-30 18:20 | ECG ---
[facility] Test Date: 2024-07-30 Test Time: 09:48:58 Pat Name: BLANCA MEEHAN Department: ER Room: Gender: F Mixer And Scaler: [place]LA[place] : 1955 Requested By: ORLANDO DICKEY Order Number: [id number] Reading MD: Naren Oliver Measurements Intervals [place] Rate: 79 P: 10 NV: 132 QRS: -24 QRSD: 101 T: -29 QT: 386 QTc: 443 Interpretive Statements Sinus rhythm LVH with secondary repolarization abnormality Inferior infarct, old Anterolateral infarct, age indeterminate Electronically Signed On 07-31-2024 14:16:07 PST by Naren Oliver Please click the below link to view image of tracing.
== END 2024-07-30 13:26 | disposition home or self-care (01) ==
LOC: EDBD 09:28 → EDUNIT# 09:28 → ER 09:28
DX: R04.0 Epistaxis (principal); I11.0 Hypertensive heart disease with heart failure; I50.9 Heart failure, unspecified; E11.9 Type 2 diabetes mellitus without complications; I25.119 Atherosclerotic heart disease of native coronary artery with unspecified angina pectoris; I25.2 Old myocardial infarction; Z90.49 Acquired absence of other specified parts of digestive tract; Z90.710 Acquired absence of both cervix and uterus; Z79.84 Long term (current) use of oral hypoglycemic drugs; Z79.899 Other long term (current) drug therapy
CPT/HCPCS: 93005

== ENCOUNTER 2024-11-12 08:55 | Inpatient (IN) | payer OTHER, MEDICAID ==
[~2024-11-12] VITALS: Ht 170.2 cm; Wt 119.5 kg
--- NOTE | 2024-11-12 09:39 | ED.PDOC ---
History of Present Illness HPI Comments 69 year old female presents to the ED with a chief complaint of high blood pressure onset today (11/12/24). Patient states she woke up today experiencing headache, checked BP and was elevated. She also states she has been under stress and believes that can be cause of elevated BP. Upon ED arrival, BP was 190 systolic. PMHx HTN, DM, angina, CAD, CHF, [place], HLD. Denies chest pain, dizziness, shortness of breath, abdominal pain, nausea, vomiting, diarrhea, fevers, chills. No other symptoms or modifying factors present at this time. Chief Complaint: High Blood Pressure Time Seen by MD: 09:04 Primary Care Provider: DYLAN Reviewed Notes: Medications, Allergies Allergies: Coded Allergies: NO KNOWN ALLERGIES (Unverified , 09/10/14) Home Meds Active Scripts Clonidine Hydrochloride (Clonidine Hcl) 0.1 Mg Tab, 1 TAB PO QPM, #30 TAB 0 Refills Prov:NISH HUMMEL 03/20/24 Ranolazine (Ranexa) 500 Mg Tab, 500 MG PO BID, #60 TAB 5 Refills Prov:CESAR GRAY MD 08/08/22 Reported Medications Meclizine Hcl (Meclizine Hcl) 25 Mg Tab, 25 MG PO PRN for 30 Days, MG 07/29/24 Cholecalciferol (VITAMIN D3) 2,000 Unit Tab, 1 TAB PO DAILY, #30 TAB 5 Refills 07/29/24 Furosemide (Furosemide) 20 Mg Tab, 20 MG PO BIDD for 30 Days, MG 07/29/24 Lisinopril (Lisinopril) 10 Mg Tab, 10 MG PO DAILY for 30 Days, MG 07/29/24 Famotidine (Famotidine) 20 Mg Tab, 1 TAB PO BID 11/14/23 Carvedilol (Carvedilol) 12.5 Mg Tab, 1 TAB PO BID 11/14/23 Acarbose (Acarbose) 100 Mg Tab, 100 MG PO DAILY, TAB 01/16/18 Simvastatin (Simvastatin) 40 Mg Tab, 1 TAB PO QPM, #90 TAB 1 Refill 11/10/14 Metformin Hydrochloride (Metformin Hcl) 500 Mg Tab, 500 MG PO TID for 30 Days, MG 11/10/14 Glipizide (Glipizide) 10 Mg Tab, 1 TAB PO DAILY 11/10/14 Information Source: Patient Mode of Arrival: Ambulatory Severity: Moderate Timing: Hours Duration: Since onset Prehospital treatment: None Past Medical History PAST MEDICAL HISTORY: Angina, CAD, CHF, DM, HTN, [place] Surgical History: Cholecystectomy, Hysterectomy, Tonsillectomy GERIATRIC PERSONAL CARE AIDE History: Denies all GERIATRIC PERSONAL CARE AIDE Hx Family History Family History: Unknown Social History Smoker: Non-Smoker Alcohol: Denies ETOH Use Drugs: Denies Drug Use Lives In: Home Constitutional: denies: chills, diaphoresis, fatigue, fever, malaise, sweats, weakness, others EENTM: denies: blurred vision, double vision, ear bleeding, ear discharge, ear drainage, ear pain, ear ringing, eye pain, eye redness, hearing loss, mouth pain, mouth swelling, nasal discharge, nose bleeding, nose congestion, nose pain, photophobia, tearing, throat pain, throat swelling, voice changes, others Respiratory: denies: cough, hemoptysis, orthopnea, SOB at rest, shortness of breath, SOB with excertion, stridor, wheezing, others Cardiovascular: reports: others (high blood pressure ); denies: chest pain, dizzy spells, diaphoresis, Dyspnea on exertion, edema, irregular heart beat, left arm pain, lightheadedness, palpitations, PND, syncope Gastrointestinal: denies: abdomen distended, abdominal pain, blood streaked bowels, constipated, diarrhea, dysphagia, difficulty swallowing, hematemesis, melena, nausea, poor appetite, poor fluid intake, rectal bleeding, rectal pain, vomiting, others Genitourinary: denies: abnormal vagina bleeding, burning, dyspareunia, dysuria, flank pain, frequency, hematuria, incontinence, pain, , vagina discharge, urgency, others Neurological: reports: headache; denies: dizziness, fainting, left sided numbness, left sided weakness, numbness, paresthesia, pre-existing deficit, right sided numbness, right sided weakness, seizure, speech problems, tingling, tremors, weakness, others Musculoskeletal: denies: back pain, gout, joint pain, joint swelling, muscle pain, muscle stiffness, neck pain, others Integumetry: denies: bruises, change in color, change in hair/nails, dryness, laceration, lesions, lumps, rash, wounds, others Allergic/Immunocompromised: denies: Difficulty Healing, Frequent Infections, Hives, Itching, others Hematologic/Lymphatic: denies: anemia, blood clots, easy bleeding, easy bruising, swollen glands, others Endocrine: denies: excessive hunger, excessive sweating, excessive thirst, excessive urination, flushing, intolerance to cold, intolerance to heat, unexplained weight gain, unexplained weight loss, others Psychiatric: denies: anxiety, bipolar disorder, depression, hopeless, panic disorder, schizophrenia, sleepless, suicidal, others All Other Systems: Reviewed and Negative Physical Exam General Appearance: No Apparent Distress, Normal HEENT: Normal ENT Inspection, Pharynx Normal, TMs Normal Neck: Full Range of Motion, Non-Tender, Normal, Normal Inspection Respiratory: Chest Non-Tender, Lungs Clear, No Accessory Muscle Use, No Respiratory Distress, Normal Breath Sounds Cardiovascular: No Edema, No JVD, No Murmur, No Gallop, Normal Peripheral Pulses, Regular Rate/Rhythm Breast Exam: Deferred Gastrointestinal: No Organomegaly, Non Tender, No Pulsatile Mass, Normal Bowel Sounds, Soft Genitalia: Deferred Pelvic: Deferred Rectal: Deferred Extremities: No calf tenderness, Normal capillary refill, Normal inspection, Normal range of motion, Non-tender, No pedal edema Musculoskeletal : Apperance: Normal 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 Was a procedure done?: No Differential Dx Considerations may include: Hypertensive urgency, hypertensive emergency, migraine, viral syndrome X-Ray, Labs, Meds, VS Vital Signs Date Time Temp Pulse Resp B/P (MAP) Pulse Ox O2 Delivery O2 Flow Rate FiO2 11/12/24 09:43 71 16 99 Room Air* 0 21 11/12/24 09:38 98.0 71 18 191/85 (120) 98 98.0 11/12/24 09:38 71 18 98 Room Air 11/12/24 09:15 66 11/12/24 08:59 97.2 77 18 194/78 (116) 95 197/87 (123) Lab Test 11/12/24 10:39 11/12/24 10:00 11/12/24 09:23 Range/Units Troponin I High Sensitivity Pending 8 </=34 ng/L Urine Color Light-yellow Yellow Urine Clarity Clear Clear Urine pH 5.5 5.0-9.0 Urine Specific [place]rell 1.017 1.001-1.035 Urine Protein Negative Negative Urine Ketones Negative Negative Urine Blood Negative Negative /uL Urine Nitrite Negative Negative Urine Bilirubin Negative Negative Urine Urobilinogen Normal Negative mg/dL Urine Leukocyte Esterase Negative Negative /uL Urine RBC 1 0 - 4 /hpf Urine Microscopic WBC < 1 0-5 /HPF Urine Squamous Epithelial Cells Few <5 /hpf Urine Bacteria None seen None Seen /hpf Urine Glucose Trace Normal mg/dL White Blood Count 6.0 4.4-10.8 10^3/uL Red Blood Count 3.75 L 4.0-5.20 10^6/uL Hemoglobin 11.9 L 12.2-16.2 g/dL Hematocrit 34.9 L 36.0-46.0 % Mean Corpuscular Volume 93.0 80.0-100.0 fL Mean Corpuscular Hemoglobin 31.8 28.0-32.0 pg Mean Corpuscular Hemoglobin Concent 34.2 32.0-36.0 g/dL Red Cell Distribution Width 13.4 11.8-14.3 % Platelet Count 199 140-450 10^3/uL Mean Platelet Volume 7.3 6.9-10.8 fL Neutrophils (%) (Auto) 64.6 37.0-80.0 % Lymphocytes (%) (Auto) 25.7 10.0-50.0 % Monocytes (%) (Auto) 7.0 0.0-12.0 % Eosinophils (%) (Auto) 2.3 0.0-7.0 % Basophils (%) (Auto) 0.4 0.0-2.0 % Neutrophils # (Auto) 3.9 1.6-8.6 10 ^3/uL Lymphocytes # (Auto) 1.5 0.4-5.4 10 ^3/uL Monocytes # (Auto) 0.4 0-1.3 10 ^3/uL Eosinophils # (Auto) 0.1 0-0.8 10 ^3/uL Basophils # (Auto) 0 0-0.2 10 ^3/uL Nucleated Red Blood Cells 0.1 % Sodium Level 141 136-145 mmol/L Potassium Level 4.0 3.5-5.1 mmol/L Chloride Level 105 98-107 mmol/L Carbon Dioxide Level 29 20-31 mmol/L Anion Gap 7 5-15 Blood Urea Nitrogen 14 9-23 mg/dL Creatinine 0.95 0.550-1.02 mg/dL Glomerular Filtration Rate Calc 65 >90 mL/min BUN/Creatinine Ratio 14.7 10.0-20.0 Serum Glucose 156 H 74-106 mg/dL Calcium Level 9.9 8.7-10.4 mg/dL B-Type Natriuretic Peptide 185.16 0-100 pg/mL [place] [address] Ph: [phone] DIAGNOSTIC IMAGING Diagnostic Imaging Report : [id number] Signed PATIENT: JORGE MEEHANCCT: [id number] UNIT: [id number] : 1955 LOC: ER ROOM / BED: / AGE / SEX: 69 / F ADM STATUS: REG ER SERVICE 2 ORDERING PHYSICIAN: ORLANDO DICKEY MD PROCEDURE(s): CXRP - CHEST PORTABLE REASON: htn, headache ORDER NUMBER(s): [id number], ACCESSION NUMBER(s): [id number] CHEST RADIOGRAPH Indication: htn, headache Technique: Single frontal view of the chest was obtained COMPARISON: XY CHEST PORTABLE on DOS: 07/28/24, XY CHEST PORTABLE on DOS: 11/13/23, CXRP on DOS: 08/12/22, CHEST PORTABLE on DOS: 08/12/22, CHEST PORTABLE on DOS: 08/05/22 FINDINGS: Lines and Tubes: None Lungs: Clear Pleura: No effusion. No pneumothorax. Cardiomediastinal contours: Unremarkable Bones: Unremarkable IMPRESSION: No acute disease. ATED BY: CLIFF ROA MD DICTATED DATE/TIME: 11/12/24943 SIGNED BY: CLIFF ROA MD SIGNED DATE/TIME: 11/12/24943 CC: [place] [address] Ph: [phone] DIAGNOSTIC IMAGING Diagnostic Imaging Report : [id number] Signed PATIENT: BLANCA MEEHAN ACCT: [id number] UNIT: [id number] : 1955 LOC: ER ROOM / BED: / AGE / SEX: 69 / F ADM STATUS: REG ER SERVICE 2 ORDERING PHYSICIAN: ORLANDO DICKEY MD PROCEDURE(s): HWOCT - HEAD WITHOUT CONTRAST REASON: htn, headache ORDER NUMBER(s): [id number], ACCESSION NUMBER(s): [id number] EXAM: CT HEAD WITHOUT CONTRAST HISTORY: htn, headache COMPARISON: CT HEAD WITHOUT CONTRAST on DOS: 11/13/23 TECHNIQUE: Axial images of the head were obtained and reformatted in coronal and sagittal planes. All CT scans at this medical facility are performed using dose modulation techniques as appropriate to a performed exam including the following: Automated exposure control was utilized; adjustment of the MA and/or KV according to patient size; and use of iterative reconstruction technique. CT Dose: CTDI volume is 56.29 mGy. Dose-length product is 996.81 mGy*cm FINDINGS: There is no evidence of acute intracranial hemorrhage, mass, mass effect midline shift. There is no hydrocephalus. Clements-white matter differentiation is maintained. Is a stable CSF collection in the left posterior cranial fossa measuring 7 mm in diameter. The visualized paranasal sinuses and mastoid air cells are clear. The calvarium is intact. IMPRESSION: 1. No acute intracranial process. HS:Y ATED BY: MK TRAN MD DICTATED DATE/TIME: 11/12/24942 SIGNED BY: MK TRAN MD SIGNED DATE/TIME: 11/12/24942 CC: Time of 1ST Reevaluation: 09:34 Reevaluation 1ST: Unchanged Patient Education/Counseling: Diagnosis, Treatment, Prognosis Family Education/Counseling: No Family Present Additional Information The following tests were ordered, and results were reviewed by me: BNP, BMP, CBC, TROP -x3, UA, XY CHEST, CT HEAD WITHOUT CONTRAST, EKG I reviewed and agreed with the following test results read by other providers: , XY CHEST I discussed treatment and results with medical personnel and: patient Departure 1 Departure Time of Disposition: 11:05 (Patient presented with hypertension and symptoms concerning for hypertensive emergency. Patient is receiving iv blood pressure medications requiring intensive monitoring. Data: 1. I ordered and reviewed the result of at least 3 labs including a CBC, BMP, and Urinalysis. 2. I independently interpreted the following tests: CT Brain: Which appears benign. EKG which is Normal Sinus RhythmRisk:This patient has a high risk of morbidity due to further diagnostic testing or treatment and may suffer from an acute cardiac disorder. Workup reveals hypertensive emergency and patient should be admitted for further workup. and possible expert consultation. ) Impression: Primary Impression: Hypertensive urgency Disposition: ADMITTED INPATIENT Admit to: Med Surg Condition: Serious Critical Care Note Critical Care Time?: Yes Critical care comment: Hypertensive emergency Authorized and Performed by: Orlando Dickey MD Total critical care time: Approximately 34 minutes Due to a high probability of clinically significant, life threatening deterioration, the patient required my highest level of preparedness to intervene emergently and I personally spent this critical care time directly and personally managing the patient. This critical care time included obtaining a history; examining the patient; pulse oximetry; ordering and review of studies; arranging urgent treatment with development of a management plan; evaluation of patient's response to treatment; frequent reassessment; and, discussions with other providers. This critical care time was performed to assess and manage the high probability of imminent, life-threatening deterioration that could result in multi-organ failure. It was exclusive of separately billable procedures and treating other patients and teaching time. Please see my other sections and the rest of the note for further information on patient assessment and treatment. Stability Stability form required: No I personally scribed for ORLANDO DICKEY MD ([email or web address]) on 11/12/24 at 09:39. Electronically submitted by Radhika Davis ([email or web address]). I personally scribed for ORLANDO DICKEY MD ([email or web address]) on 11/12/24 at 10:09. Electronically submitted by Radhika Davis ([email or web address]). ORLANDO DICKEY MD Nov 12, 2024 09:39
[2024-11-12 09:43] VITALS: PULSE 71; RESP 16; O2SAT 99
[2024-11-12 09:45] LABS: Basophils # (auto) 0 10 ^3/uL (0-0.2); Basophils % (auto) 0.4 % (0.0-2.0); Eosinophils # (auto) 0.1 10 ^3/uL (0-0.8); Eosinophils % (auto) 2.3 % (0.0-7.0); Hematocrit 34.9 % (36.0-46.0); Hemoglobin 11.9 g/dL (12.2-16.2); Lymphocytes # (auto) 1.5 10 ^3/uL (0.4-5.4); Lymphocytes % (auto) 25.7 % (10.0-50.0); Mean Corpuscular Hemoglobin 31.8 pg (28.0-32.0); Mean Corpuscular Hgb Conc. 34.2 g/dL (32.0-36.0); Monocytes # (auto) 0.4 10 ^3/uL (0-1.3); Neutrophils # (auto) 3.9 10 ^3/uL (1.6-8.6); Neutrophils % (auto) 64.6 % (37.0-80.0); Nucleated Red Blood Cells % 0.1 %; Platelet Count (auto) 199 10^3/uL (140-450); Red Blood Cells 3.75 10^6/uL (4.0-5.20); Red Cell Distribution Width 13.4 % (11.8-14.3)
--- NOTE | 2024-11-12 09:46 | DVH ---
EXAM: CT HEAD WITHOUT CONTRAST HISTORY: htn, headache COMPARISON: CT HEAD WITHOUT CONTRAST on DOS: 11/13/23 TECHNIQUE: Axial images of the head were obtained and reformatted in coronal and sagittal planes. All CT scans at this medical facility are performed using dose modulation techniques as appropriate t o a performed exam including the following: Automated exposure control was utilized; adjustment of th e MA and/or KV according to patient size; and use of iterative reconstruction technique. CT Dose: CTDI volume is 56.29 mGy. Dose-length product is 996.81 mGy*cm FINDINGS: There is no evidence of acute intracranial hemorrhage, mass, mass effect midline shift. There is no h ydrocephalus. Clements-white matter differentiation is maintained. Is a stable CSF collection in the lef t posterior cranial fossa measuring 7 mm in diameter. The visualized paranasal sinuses and mastoid a ir cells are clear. The calvarium is intact. IMPRESSION: 1. No acute intracranial process. HS:Y
--- NOTE | 2024-11-12 09:46 | DVH ---
CHEST RADIOGRAPH Indication: htn, headache Technique: Single frontal view of the chest was obtained COMPARISON: XY CHEST PORTABLE on DOS: 07/28/24, XY CHEST PORTABLE on DOS: 11/13/23, CXRP on DOS: , CHEST PORTABLE on DOS: 08/12/22, CHEST PORTABLE on DOS: 08/05/22 FINDINGS: Lines and Tubes: None Lungs: Clear Pleura: No effusion. No pneumothorax. Cardiomediastinal contours: Unremarkable Bones: Unremarkable IMPRESSION: No acute disease.
[2024-11-12 09:55] LABS: Chloride 105 mmol/L (98-107); Sodium 141 mmol/L (136-145)
[2024-11-12 09:56] LABS: Anion Gap 7 (5-15); Calcium 9.9 mg/dL (8.7-10.4); Carbon Dioxide 29 mmol/L (20-31)
[2024-11-12 10:01] LABS: BUN/Creatinine Ratio 14.7 (10.0-20.0); Blood Urea Nitrogen 14 mg/dL (9-23)
[2024-11-12 10:02] LABS: Glucose 156 mg/dL (74-106)
[2024-11-12 10:23] LABS: Urine Bacteria None Seen /hpf (None Seen)
[2024-11-12 10:31] LABS: Urine Blood Negative /uL (Negative); Urine Clarity Clear (Clear); Urine Color Light-Yellow (Yellow); Urine Protein, UAD Negative (Negative); Urine Specific Gravity 1.017 (1.001-1.035); Urine Squamous Epithelial Cell FEW /hpf (<5); Urine Urobilinogen Normal (Negative); Urine WBC < 1 /HPF (0-5); Urine pH 5.5 (5.0-9.0)
[2024-11-12] MEDS: hydrALAZINE HCL 20 MG/ML VL IV ONE (11:30)
[2024-11-12] MEDS: cloNIDine HCL 0.1 MG TAB ONE (13:24)
[2024-11-12] MEDS ORDERED: DOCUSATE SOD 100 MG CAP PO PRN (14:30)
[2024-11-12] MEDS ORDERED: ONDANSETRON HCL 4 MG/2 ML VIAL IV PRN (14:30)
[2024-11-12] MEDS ORDERED: HYDROcodone-ACET 5/325MG TAB PO PRN (14:30)
[2024-11-12] MEDS ORDERED: NITROGLYCERIN 0.4 MG SL TAB SL PRN (14:30)
[2024-11-12] MEDS ORDERED: MORPHINE SULFATE INJ 2 MG/ml SYRG IV PRN (14:30)
--- NOTE | 2024-11-12 14:33 | DVHHP2 ---
History of Present Illness Reason for Visit: Hypertension History of Present Illness Milagros March is a 69-year-old female with past medical history of hypertension, CHF, diabetes, hyperlipidemia, and coronary artery disease, who came in for hypertension. Patient states that she has been under a lot stress right now which is rasing her blood pressure. Her son 1 year ago. When he first she was hospitalized for hypertensive emergency and diagnosed with takotsubo at that time. This is the 1 year anniversary of his and it has been very hard for her. Patient takes her blood pressure twice a day and is compliant with her medications. This morning she took her blood pressure and her BP was elevated. She took her normal medications, but her blood pressure remained elevated. She does have a PRN clonidine at home that she did not take because she was not sure what to do. Once in the Er her blood pressure was 190-200's systolic. ER gave hydralazine with minimal improvement. Cardiovascular: CHF, HTN, hyperipidemia, Other (takotsubo) Endocrine: Diabetes Past Surgical History: Cholecystectomy, Hysterectomy, Other (bladder surgery), Tonsillectomy Smoke: No ALCOHOL: none Drugs: None Lives: with Family Domestic Violence: Neg Review of Systems Constitutional: Yes: Other (Headache); No: Fever, Chills, Sweats, Weakness, Malaise Eyes: No: Pain, Vision change, Conjunctivae inflammation, Eyelid inflammation, Other, Redness ENT: No: Ear pain, Ear discharge, Nose pain, Nose discharge, Nose congestion, Mouth pain, Mouth swelling, Throat pain, Throat swelling, Other Respiratory: No: Cough, Dry, Shortness of breath, SOB with excertion, Wheezing, Hemoptysis, Pleuritic Pain, Sputum, Wheezing, Other Cardiovascular: Other (Hypertension); No: Chest Pain, Palpitations, Orthopnea, Paroxysmal Noc. Dyspnea, Edema, Lt Headedness Gastrointestinal: No: Nausea, Vomiting, Abdominal Pain, Diarrhea, Constipation, Melena, Hematochezia, Other Genitourinary: No Dysuria, No Frequency, No Incontinence, No Hematuria, No Retention, No Other Musculoskeletal: No: other, neck pain, shoulder pain, arm pain, back pain, hand pain, leg pain, foot pain Skin: No: Rash, Lesions, Jaundice, Bruising, Other Neurological: No: Weakness, Numbness, Incoordination, Change in speech, Confusion, Seizures, Other Allergies: Coded Allergies: NO KNOWN ALLERGIES (Unverified , 09/10/14) Exam Vital Signs Vital Signs Date Time Temp Pulse Resp B/P (MAP) Pulse Ox O2 Delivery O2 Flow Rate FiO2 11/12/24 13:24 200/92 11/12/24 13:10 75 20 100 11/12/24 11:28 98.0 98.0 11/12/24 09:43 Room Air* 0 21 General Appearance: Alert, Oriented X3, Cooperative, moderate distress, Other (Headache) HEENT: Atraumatic, PERRLA, Mucous membr. moist/pink Respiratory: Clear to auscultation, Normal air movement Cardiovascular: Regular rate, Normal S1, Normal S2 Abdominal: Normal bowel sounds, Soft, No tenderness, No hepatospenomegaly Extremities: No clubbing, No cyanosis, No edema, Normal pulses Skin: No rashes, No breakdown, No significant lesion Neuro: Normal gait, Normal speech, Strength at 5/5 X4 ext Psych/Mental Status: Mental status NL, Mood NL Labs/Xrays Labs Test 11/12/24 12:36 11/12/24 10:00 11/12/24 09:23 Range/Units Troponin I High Sensitivity 8 </=34 ng/L Urine Color Light-yellow Yellow Urine Clarity Clear Clear Urine pH 5.5 5.0-9.0 Urine Specific [place] 1.017 1.001-1.035 Urine Protein Negative Negative Urine Ketones Negative Negative Urine Blood Negative Negative /uL Urine Nitrite Negative Negative Urine Bilirubin Negative Negative Urine Urobilinogen Normal Negative mg/dL Urine Leukocyte Esterase Negative Negative /uL Urine RBC 1 0 - 4 /hpf Urine Microscopic WBC < 1 0-5 /HPF Urine Squamous Epithelial Cells Few <5 /hpf Urine Bacteria None seen None Seen /hpf Urine Glucose Trace Normal mg/dL White Blood Count 6.0 4.4-10.8 10^3/uL Red Blood Count 3.75 L 4.0-5.20 10^6/uL Hemoglobin 11.9 L 12.2-16.2 g/dL Hematocrit 34.9 L 36.0-46.0 % Mean Corpuscular Volume 93.0 80.0-100.0 fL Mean Corpuscular Hemoglobin 31.8 28.0-32.0 pg Mean Corpuscular Hemoglobin Concent 34.2 32.0-36.0 g/dL Red Cell Distribution Width 13.4 11.8-14.3 % Platelet Count 199 140-450 10^3/uL Mean Platelet Volume 7.3 6.9-10.8 fL Neutrophils (%) (Auto) 64.6 37.0-80.0 % Lymphocytes (%) (Auto) 25.7 10.0-50.0 % Monocytes (%) (Auto) 7.0 0.0-12.0 % Eosinophils (%) (Auto) 2.3 0.0-7.0 % Basophils (%) (Auto) 0.4 0.0-2.0 % Neutrophils # (Auto) 3.9 1.6-8.6 10 ^3/uL Lymphocytes # (Auto) 1.5 0.4-5.4 10 ^3/uL Monocytes # (Auto) 0.4 0-1.3 10 ^3/uL Eosinophils # (Auto) 0.1 0-0.8 10 ^3/uL Basophils # (Auto) 0 0-0.2 10 ^3/uL Nucleated Red Blood Cells 0.1 % Sodium Level 141 136-145 mmol/L Potassium Level 4.0 3.5-5.1 mmol/L Chloride Level 105 98-107 mmol/L Carbon Dioxide Level 29 20-31 mmol/L Anion Gap 7 5-15 Blood Urea Nitrogen 14 9-23 mg/dL Creatinine 0.95 0.550-1.02 mg/dL Glomerular Filtration Rate Calc 65 >90 mL/min BUN/Creatinine Ratio 14.7 10.0-20.0 Serum Glucose 156 H 74-106 mg/dL Calcium Level 9.9 8.7-10.4 mg/dL B-Type Natriuretic Peptide 185.16 0-100 pg/mL EXAM: CT HEAD WITHOUT CONTRAST TECHNIQUE: Axial images of the head were obtained and reformatted in coronal and sagittal planes. All CT scans at this medical facility are performed using dose modulation techniques as appropriate to a performed exam including the following: Automated exposure control was utilized; adjustment of the MA and/or KV according to patient size; and use of iterative reconstruction technique. CT Dose: CTDI volume is 56.29 mGy. Dose-length product is 996.81 mGy*cm FINDINGS: There is no evidence of acute intracranial hemorrhage, mass, mass effect midline shift. There is no hydrocephalus. Clements-white matter differentiation is maintained. Is a stable CSF collection in the left posterior cranial fossa measuring 7 mm in diameter. The visualized paranasal sinuses and mastoid air cells are clear. The calvarium is intact. IMPRESSION: 1. No acute intracranial process. CHEST RADIOGRAPH FINDINGS: Lines and Tubes: None Lungs: Clear Pleura: No effusion. No pneumothorax. Cardiomediastinal contours: Unremarkable Bones: Unremarkable IMPRESSION: No acute disease. Assessment/Plan Assessment/Plan Assessment: Hypertensive urgency, Hyperglycemia, Diabetes, Coronary artery disease, ' Plan: Admit to Tele, Cardiology consult, Home medications reconciled, PRN antihypertensives, continuos tele monitoring, Plan discussed with: Patient My Orders Orders - MURRAY CONTRERAS Procedure Category Date Status Time Admit ADMIT 11/12/24 Transmitted 14:16 Code Status CODE 11/12/24 Transmitted 14:16 Sodium Chloride Lock PHA 11/12/24 Transmitted (Saline Lock Ns) 22:00 Hydrocodone-Acet PHA 11/12/24 Transmitted 5/325mg Tab ([place] 14:30 Ondansetron Hcl PHA 11/12/24 Transmitted (Zofran) 14:30 Docusate Sodium PHA 11/12/24 Transmitted Capsule (Colace 14:30 Complete Blood Count LAB 11/13/24 Verified 04:00 Comprehensive LAB 11/13/24 Verified Metabolic Panel 04:00 Condition: Critical [facility] 11/12/24 Transmitted 14:16 Acetaminophen Tablet [facility] 11/12/24 Transmitted (Tylenol Tablet) 14:30 Nitroglycerin PHA 11/12/24 Transmitted Sublingual (Ntrostat 14:30 Morphine Sulfate PHA 11/12/24 Transmitted Injection 14:30 Stat Ekg For Chest [facility] 11/12/24 Transmitted Pain 14:16 Notify Md Of Changes [facility] 11/12/24 Transmitted From Base 14:16 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 [facility] 11/12/24 Transmitted 24 Hours 14:16 Emergency Dysrhythmia [facility] 11/12/24 Transmitted Protocol 14:16 Rhythm Strips Once [facility] 11/12/24 Transmitted Every Shift 14:16 Oxygen By Nasal RT 11/12/24 Transmitted Cannula 14:16 Carvedilol Tablet PHA 11/12/24 Transmitted (Coreg Tablet) 22:00 Clonidine Hcl Tablet PHA 11/12/24 Transmitted (Catapres Tablet) 18:00 Famotidine Tablet [facility] 11/12/24 Transmitted (Pepcid Tablet) 22:00 Furosemide Tablet PHA 11/12/24 Transmitted (Lasix Tablet) 18:00 (Nf) Glipizide PHA 11/13/24 Transmitted 10:00 (Nf) Lisinopril PHA 11/13/24 Transmitted 10:00 (Nf) Simvastatin PHA 11/12/24 Verified 18:00 Date of Service: Nov 12, 2024 Billing Provider: MURRAY CONTRERAS Common Visit Codes: [id number] INP/OBS CARE (HIGH) MURRAY CONTRERAS Nov 12, 2024 14:33
[2024-11-12] MEDS: cloNIDine HCL 0.1 MG TAB PO ONE (14:36)
[2024-11-12] MEDS: cloNIDine HCL 0.1 MG TAB PO SCH (18:00)
[2024-11-12 18:46] VITALS: BP 131/67; PULSE 60; RESP 18; TEMP 97.8; O2SAT 97
[2024-11-12] MEDS: FUROSEMIDE 20 MG TAB PO SCH (18:55)
[2024-11-12] MEDS ORDERED: cloNIDine 0.1 mg/24hr 7 DAY PATCH TD ONE (19:15)
[2024-11-12 21:39] VITALS: BP 165/59; PULSE 57; RESP 17
[2024-11-12] MEDS: FAMOTIDINE 20 MG TAB PO SCH (21:56)
[2024-11-12] MEDS: SODIUM CHLOR 0.9% PF (SALINE LOCK) 10ML VIAL/SYR IV SCH (21:58)
[2024-11-12] MEDS: CARVEDILOL 12.5 MG TAB PO SCH (21:58)
[2024-11-12] MEDS: ATORVASTATIN 20 MG TAB PO SCH (22:00)
[2024-11-12 22:20] VITALS: BP 167/74; PULSE 60; PULSE 61; RESP 18; TEMP 97.7; O2SAT 98
[2024-11-13 01:00] VITALS: BP 151/57; PULSE 61; RESP 18; TEMP 98.4; O2SAT 97
[2024-11-13 05:00] VITALS: BP 143/50; PULSE 55; RESP 20; TEMP 97.7; O2SAT 97
[2024-11-13] MEDS: ACETAMINOPHEN 325 MG TAB PO PRN (05:56)
[2024-11-13 07:44] LABS: Basophils # (auto) 0 10 ^3/uL (0-0.2); Basophils % (auto) 0.5 % (0.0-2.0); Eosinophils # (auto) 0.2 10 ^3/uL (0-0.8); Eosinophils % (auto) 2.5 % (0.0-7.0); Hematocrit 37.6 % (36.0-46.0); Hemoglobin 13.2 g/dL (12.2-16.2); Lymphocytes # (auto) 1.8 10 ^3/uL (0.4-5.4); Lymphocytes % (auto) 28.4 % (10.0-50.0); Mean Corpuscular Hemoglobin 32.5 pg (28.0-32.0); Mean Corpuscular Volume 92.9 fL (80.0-100.0); Monocytes # (auto) 0.6 10 ^3/uL (0-1.3); Monocytes % (auto) 8.6 % (0.0-12.0); Neutrophils # (auto) 3.9 10 ^3/uL (1.6-8.6); Platelet Count (auto) 198 10^3/uL (140-450); Red Blood Cells 4.05 10^6/uL (4.0-5.20); Red Cell Distribution Width 13.6 % (11.8-14.3); White Blood Cell 6.5 10^3/uL (4.4-10.8)
[2024-11-13 07:51] LABS: Alanine Aminotransferase 18 U/L (7-40); Anion Gap 9 (5-15); Aspartate Aminotransferase 16 U/L (13-40); BUN/Creatinine Ratio 13.6 (10.0-20.0); Bilirubin, Total 0.6 mg/dL (0.2-1.0); Blood Urea Nitrogen 12 mg/dL (9-23); Calcium 10.1 mg/dL (8.7-10.4); Carbon Dioxide 28 mmol/L (20-31); Chloride 103 mmol/L (98-107); Potassium 3.7 mmol/L (3.5-5.1); Sodium 140 mmol/L (136-145); Total Protein 6.3 g/dL (5.7-8.2)
[2024-11-13 07:53] LABS: Alkaline Phosphatase 40 U/L (46-116); Glucose 143 mg/dL (74-106)
[2024-11-13 08:00] VITALS: PULSE 62; PULSE 66; RESP 16; O2SAT 97
[2024-11-13 08:30] VITALS: BP 120/49; PULSE 62; RESP 16; TEMP 97.5; O2SAT 97
[2024-11-13] MEDS ORDERED: LISINOPRIL 5 MG TAB PO SCH ×2 (10:00→10:15)
[2024-11-13] MEDS: LISINOPRIL 5 MG TAB PO SCH (10:00)
[2024-11-13] MEDS: glipiZIDE 5 MG TAB PO SCH (10:12)
[2024-11-13] MEDS ORDERED: LISI-275 PO (11:14)
--- NOTE | 2024-11-13 11:41 | DVHDSRES ---
Discharge Summary Date of Admission Resident Creating Document: ARACELIS PATTERSON RESIDENT Nov 12, 2024 at 14:16 Date of Discharge: Nov 13, 2024 Admitting Diagnosis hypertensive urgency Labs/Diagnostic Data: Laboratory Results Test 11/13/24 10:11 11/13/24 07:15 11/12/24 12:36 11/12/24 10:00 POC Glucose 161 mg/dl (70-106) White Blood Count 6.5 10^3/uL (4.4-10.8) Red Blood Count 4.05 10^6/uL (4.0-5.20) Hemoglobin 13.2 g/dL (12.2-16.2) Hematocrit 37.6 % (36.0-46.0) Mean Corpuscular Volume 92.9 fL (80.0-100.0) Mean Corpuscular Hemoglobin 32.5 pg (28.0-32.0) Mean Corpuscular Hemoglobin Concent 35.0 g/dL (32.0-36.0) Red Cell Distribution Width 13.6 % (11.8-14.3) Platelet Count 198 10^3/uL (140-450) Mean Platelet Volume 7.4 fL (6.9-10.8) Neutrophils (%) (Auto) 60.0 % (37.0-80.0) Lymphocytes (%) (Auto) 28.4 % (10.0-50.0) Monocytes (%) (Auto) 8.6 % (0.0-12.0) Eosinophils (%) (Auto) 2.5 % (0.0-7.0) Basophils (%) (Auto) 0.5 % (0.0-2.0) Neutrophils # (Auto) 3.9 10 ^3/uL (1.6-8.6) Lymphocytes # (Auto) 1.8 10 ^3/uL (0.4-5.4) Monocytes # (Auto) 0.6 10 ^3/uL (0-1.3) Eosinophils # (Auto) 0.2 10 ^3/uL (0-0.8) Basophils # (Auto) 0 10 ^3/uL (0-0.2) Nucleated Red Blood Cells 0.0 % Sodium Level 140 mmol/L (136-145) Potassium Level 3.7 mmol/L (3.5-5.1) Chloride Level 103 mmol/L (98-107) Carbon Dioxide Level 28 mmol/L (20-31) Anion Gap 9 (5-15) Blood Urea Nitrogen 12 mg/dL (9-23) Creatinine 0.88 mg/dL (0.550-1.02) Glomerular Filtration Rate Calc 72 mL/min (>90) BUN/Creatinine Ratio 13.6 (10.0-20.0) Serum Glucose 143 mg/dL (74-106) Calcium Level 10.1 mg/dL (8.7-10.4) Total Bilirubin 0.6 mg/dL (0.2-1.0) Aspartate Amino Transferase (AST) 16 U/L (13-40) Alanine Aminotransferase (ALT) 18 U/L (7-40) Alkaline Phosphatase 40 U/L (46-116) Total Protein 6.3 g/dL (5.7-8.2) Albumin 4.0 g/dL (3.2-4.8) Troponin I High Sensitivity 8 ng/L (</=34) Urine Color Light-yellow (Yellow) Urine Clarity Clear (Clear) Urine pH 5.5 (5.0-9.0) Urine Specific [place] 1.017 (1.001-1.035) Urine Protein Negative (Negative) Urine Ketones Negative (Negative) Urine Blood Negative /uL (Negative) Urine Nitrite Negative (Negative) Urine Bilirubin Negative (Negative) Urine Urobilinogen Normal mg/dL (Negative) Urine Leukocyte Esterase Negative /uL (Negative) Urine RBC 1 /hpf (0 - 4) Urine Microscopic WBC < 1 /HPF (0-5) Urine Squamous Epithelial Cells Few /hpf (<5) Urine Bacteria None seen /hpf (None Seen) Urine Glucose Trace mg/dL (Normal) Test 11/12/24 09:23 B-Type Natriuretic Peptide 185.16 pg/mL (0-100) Other Laboratory Tests 11/13/24 07:15 Brief Hx & Hospital Course: A 69-year-old female with a history of hypertension, CHF, diabetes, hyperlipidemia, and coronary artery disease presented with hypertensive urgency. She reported increased stress due to the anniversary of her son's passing, leading to elevated blood pressure despite medication adherence. She denied chest pain, and troponins were negative. Imaging, including a CT head and chest X-ray, showed no acute intracranial process, no pneumothorax, and clear lungs. She was admitted to telemetry for blood pressure monitoring . BPs improved and patient was hemodynamically stable. She will be discharged with lisinopril 20 mg, clonidine 0.1 PRN and carvedilol 12.5 mg BID, instructions to follow up with her primary care physician for blood pressure management with home readings. General Appearance: Alert, Oriented X3, Cooperative, moderate distress, Other (Headache) HEENT: Atraumatic, PERRLA, Mucous membr. moist/pink Respiratory: Clear to auscultation, Normal air movement Cardiovascular: Regular rate, Normal S1, Normal S2 Abdominal: Normal bowel sounds, Soft, No tenderness, No hepatospenomegaly Extremities: No clubbing, No cyanosis, No edema, Normal pulses Skin: No rashes, No breakdown, No significant lesion Neuro: Normal gait, Normal speech, Strength at 5/5 X4 ext Psych/Mental Status: Mental status NL, Mood NL Case discussed with Dr Ritchie Operations or Procedures EXAM: CT HEAD WITHOUT CONTRAST HISTORY: htn, headache COMPARISON: CT HEAD WITHOUT CONTRAST on DOS: 11/13/23 TECHNIQUE: Axial images of the head were obtained and reformatted in coronal and sagittal planes. All CT scans at this medical facility are performed using dose modulation techniques as appropriate to a performed exam including the following: Automated exposure control was utilized; adjustment of the MA and/or KV according to patient size; and use of iterative reconstruction technique. CT Dose: CTDI volume is 56.29 mGy. Dose-length product is 996.81 mGy*cm FINDINGS: There is no evidence of acute intracranial hemorrhage, mass, mass effect midline shift. There is no hydrocephalus. Clements-white matter differentiation is maintained. Is a stable CSF collection in the left posterior cranial fossa measuring 7 mm in diameter. The visualized paranasal sinuses and mastoid air cells are clear. The calvarium is intact. IMPRESSION: 1. No acute intracranial process. Condition at Discharge: Stable Final Diagnosis/Problems List #Hypertensive urgency, #Hyperglycemia, #Diabetes, #Coronary artery disease, ' Discharge Disposition: Home Discharge Instruct/Medications Diet: Cardiac 2g Na,low cholest Activity: No Restrictions, As Tolerated Follow Up/Referral: fu with pcp Medications: see prescription Discharge Statement: "Patient was advised to return to the ER or call 911 if any headaches, dizziness, shortness of breath, chest pain, abdominal pain, bleeding, fevers, or worsening of medical condition. Patient was counseled about treatment plan, medications, possible side effects, patientverbalized understanding. All questions were answered to the best of my ability. This discharge took greater then 30 minutes in planning, reviewing documentation, counseling the patient, and discussing with other team members." ASSESSMENT ASSESSMENT Assessment hypertensive urgency Date of Service: Nov 13, 2024 Billing Provider: CESAR RITCHIE MD Common Visit Codes: [id number] DISCH DAY >30min ARACELIS PATTERSON RESIDENT Nov 13, 2024 11:41 CESAR RITCHIE MD Nov 13, 2024 22:06
[2024-11-13 12:29] VITALS: BP 120/49; PULSE 72; TEMP 36.4
[2024-11-13 13:10] VITALS: BP 90/39; PULSE 60; RESP 18; TEMP 97.6; O2SAT 98
--- NOTE | 2024-11-14 08:33 | ECG ---
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
== END 2024-11-13 13:30 | disposition home or self-care (01) | DRG 305 ==
LOC: ER 08:55 → OVERFLOW 14:16 → TELE-WESTW 22:16
PROVIDERS: ADMIT Internal Medicine; ATTEND Emergency Medicine
DX: I16.0 Hypertensive urgency (principal); I50.9 Heart failure, unspecified; I11.0 Hypertensive heart disease with heart failure; E11.65 Type 2 diabetes mellitus with hyperglycemia; I25.10 Atherosclerotic heart disease of native coronary artery without angina pectoris; E78.5 Hyperlipidemia, unspecified; Z90.710 Acquired absence of both cervix and uterus; I25.2 Old myocardial infarction; Z79.899 Other long term (current) drug therapy; Z79.84 Long term (current) use of oral hypoglycemic drugs
CPT/HCPCS: 36415; 70450; 71045; 80048; 80053; 81001; 82962; 83880; 84484; 85025; 93005; 96374; 99291; G0378

== ENCOUNTER 2025-01-30 22:54 | Emergency (ER) | payer OTHER, MEDICAID ==
[~2025-01-30] VITALS: Ht 167.6 cm; Wt 119.0 kg
[~2025-01-30 22:54] MED LIST changes: -FAMO-12 PO; +LISI-275 PO; -LISI10TA34 PO; -MECL-90 PO; -RANO500T PO
[2025-01-31] MEDS ORDERED: ONDANSETRON ODT 4 MG TAB PO ONE (01:15)
[2025-01-31] MEDS ORDERED: MORPHINE SULFATE INJ 2 MG/ml SYRG IM ONE (01:15)
--- NOTE | 2025-01-31 01:41 | ED.PDOC ---
Musculoskeletal HPI Comments 69-year-old female presents to ER with complaints of left shoulder pain x2 days. Patient with past medical history significant for HTN and "arthritis" to left shoulder reports that she has been experiencing left shoulder pain x2 days. Denies any trauma/injury and rates her current pain a 5/10 to left shoulder present with movement only, denying any pain at rest. Notes that she has been taking [place] with some relief. Patient presents to ER ambulatory on arrival, with steady gait, in no distress and is noted to be hypertensive on arrival at 179/84, stating that her blood pressure is "normally this high when she is in pain, denying any hypertensive symptoms. Denies chest pain, shortness of rafiq ath, skin changes, numbness/tingling, fever or any further symptoms/complaints Chief Complaint: Upper Extremity Time Seen by MD: 23:46 Primary Care Provider: DYLAN Reviewed Notes: Nurses Notes, Medications, Allergies Allergies: Coded Allergies: NO KNOWN ALLERGIES (Unverified , 09/10/14) Home Meds Active Scripts Lisinopril (Lisinopril) 5 Mg Tab, 20 MG PO DAILY for 30 Days, #120 TAB Prov:ARACELIS PATTERSON RESIDENT 11/13/24 Clonidine Hydrochloride (Clonidine Hcl) 0.1 Mg Tab, 1 TAB PO QPM, #30 TAB 0 Refills Prov:NISH HUMMEL PAC 03/20/24 Reported Medications Cholecalciferol (VITAMIN D3) 2,000 Unit Tab, 1 TAB PO BID, #30 TAB 5 Refills 07/29/24 Furosemide (Furosemide) 20 Mg Tab, 20 MG PO BIDD for 30 Days, MG 07/29/24 Carvedilol (Carvedilol) 12.5 Mg Tab, 1 TAB PO BID 11/14/23 Acarbose (Acarbose) 100 Mg Tab, 100 MG PO DAILY, TAB 01/16/18 Simvastatin (Simvastatin) 40 Mg Tab, 1 TAB PO QPM, #90 TAB 1 Refill 11/10/14 Metformin Hydrochloride (Metformin Hcl) 500 Mg Tab, 500 MG PO TID for 30 Days, MG 11/10/14 Glipizide (Glipizide) 10 Mg Tab, 1 TAB PO BID 11/10/14 Information Source: Patient Mode of Arrival: Ambulatory Past Medical History PAST MEDICAL HISTORY: Angina, Arthritis (left shoulder), CAD, CHF, DM, HTN, [place] Surgical History: Cholecystectomy, Hysterectomy, Tonsillectomy CONSERVATION POLICY ANALYST History: Denies all CONSERVATION POLICY ANALYST Hx Family History Family History: Unknown Social History Smoker: Non-Smoker Alcohol: Denies ETOH Use Drugs: Denies Drug Use Lives In: Home Constitutional: denies: chills, diaphoresis, fatigue, fever, malaise, sweats, weakness, others EENTM: denies: blurred vision, double vision, ear bleeding, ear discharge, ear drainage, ear pain, ear ringing, eye pain, eye redness, hearing loss, mouth pain, mouth swelling, nasal discharge, nose bleeding, nose congestion, nose pain, photophobia, tearing, throat pain, throat swelling, voice changes, others Respiratory: denies: cough, hemoptysis, orthopnea, SOB at rest, shortness of breath, SOB with excertion, stridor, wheezing, others Cardiovascular: denies: chest pain, dizzy spells, diaphoresis, Dyspnea on exertion, edema, irregular heart beat, left arm pain, lightheadedness, palpitations, PND, syncope, others Gastrointestinal: denies: abdomen distended, abdominal pain, blood streaked bowels, constipated, diarrhea, dysphagia, difficulty swallowing, hematemesis, melena, nausea, poor appetite, poor fluid intake, rectal bleeding, rectal pain, vomiting, others Genitourinary: denies: abnormal vagina bleeding, burning, dyspareunia, dysuria, flank pain, frequency, hematuria, incontinence, pain, , vagina discharge, urgency, others Neurological: denies: dizziness, fainting, headache, left sided numbness, left sided weakness, numbness, paresthesia, pre-existing deficit, right sided numbness, right sided weakness, seizure, speech problems, tingling, tremors, weakness, others Musculoskeletal: reports: others (As stated in HPI) Integumetry: denies: bruises, change in color, change in hair/nails, dryness, laceration, lesions, lumps, rash, wounds, others Allergic/Immunocompromised: denies: Difficulty Healing, Frequent Infections, Hives, Itching, others Hematologic/Lymphatic: denies: anemia, blood clots, easy bleeding, easy bruising, swollen glands, others Endocrine: denies: excessive hunger, excessive sweating, excessive thirst, excessive urination, flushing, intolerance to cold, intolerance to heat, une xplained weight gain, unexplained weight loss, others Psychiatric: denies: anxiety, bipolar disorder, depression, hopeless, panic disorder, schizophrenia, sleepless, suicidal, others Physical Exam General Appearance: No Apparent Distress, Obese HEENT: PERRL/EOMI Neck: Full Range of Motion, Non-Tender, Normal Respiratory: Chest Non-Tender, Lungs Clear, No Accessory Muscle Use, No Respiratory Distress, Normal Breath Sounds Cardiovascular: No Murmur, No Gallop, Regular Rate/Rhythm Breast Exam: Deferred Gastrointestinal: NOT DONE Genitalia: Deferred Pelvic: Deferred Rectal: Deferred Extremities: Normal capillary refill, Normal range of motion Musculoskeletal : Extremity Location: Shoulder (TTP to left proximal/mid humerus noted. No deformity/skin changes noted. Pulses intact) Neurologic: Alert, No Motor Deficits, Normal Affect, Normal Mood, No Sensory Deficits Cerebellar Function: Normal Reflexes: Normal Skin: Dry, Normal Color, Warm Peripheral Pulses: 2+ Radial (R), 2+ Radial (L), 2+ Brachial (R), 2+ Brachial (L) Lymphatic: No Adenopathy Was a procedure done? Was a procedure done?: No Sedation Sedation?: No Differential Diagnosis EXT Differential Diagnosis: Fracture, Dislocation, Neurovascular injury X-Ray, Labs, Meds, VS Vital Signs Date Time Temp Pulse Resp B/P (MAP) Pulse Ox O2 Delivery O2 Flow Rate FiO2 01/31/25 01:53 97.8 66 16 167/86 (113) 99 97.8 01/31/25 00:21 97.6 72 15 179/94 (122) 97 97.6 Current Medications Medications (Trade) Dose Ordered Sig/Rama Route Start Time Stop Time Status Last Admin Acetaminophen/ Hydrocodone Bitart ([place] 10/325MG Tab) 1 tab ONCE ONCE PO 01/31/25 01:45 01/31/25 01:46 DC 01/31/25 01:52 PATIENT: INDIGO MEEHANT: [id number]: [id number] : 1955 LOC: ER ROOM / BED: / AGE / SEX: 69 / F ADM STATUS: REG ER SERVICE 0114 ORDERING PHYSICIAN: ROBERT THOMAS PROCEDURE(s): LHUM - L HUMERUS XRAY REASON: left humerus/left shoulder pain ORDER NUMBER(s): [id number], ACCESSION NUMBER(s): [id number] CLINICAL INDICATION: left humerus/left shoulder pain TECHNIQUE: XY L HUMERUS XRAY Comparison: None FINDINGS: No osseous or joint abnormality identified with no fracture or dislocation. IMPRESSION: No abnormality demonstrated. ATED BY: CAMILO TEE MD DICTATED DATE/TIME: 01/31/25142 SIGNED BY: CAMILO TEE MD SIGNED DATE/TIME: 01/31/25142 CC: [place] 10/325 mg PO ordered Left shoulder x-ray reviewed Patient neurovascularly intact and reported improvement in symptoms prior to discharge Advised on rest/no strenuous activity and elevation Advised to continue [place] as currently prescribed p.r.n. pain Advised to follow up with PCP and orthopedics in 1-2 days Patient verbalized understanding and agreeable with current plan of care Advised to return to ER immediately if symptoms worsen Time of 1ST Reevaluation: 01:32 Reevaluation 1ST: N/A Patient Education/Counseling: Diagnosis, Treatment, Prognosis, Need For Follow Up Family Education/Counseling: No Family Present Departure 1 Departure Time of Disposition: 01:52 Impression: Primary Impression: Arthralgia of left shoulder region Disposition: 01 HOME / SELF CARE / HOMELESS Condition: Stable Discharged With: Other (daughter) Critical Care Note Critical Care Time?: No Stability Stability form required: No Heart Score Heart Score: Heart Score Response (Comments) Value History N/A 0 EKG N/A 0 Age N/A 0 Risk Factors N/A 0 Troponin N/A 0 Total 0 ROBERT THOMAS January 31, 2025 01:41
--- NOTE | 2025-01-31 01:45 | DVH ---
CLINICAL INDICATION: left humerus/left shoulder pain TECHNIQUE: XY L HUMERUS XRAY Comparison: None FINDINGS: No osseous or joint abnormality identified with no fracture or dislocation. IMPRESSION: No abnormality demonstrated.
[2025-01-31] MEDS: HYDROcodone-ACET 10/325MG TAB PO ONE (01:52)
[2025-01-31 01:53] VITALS: BP 167/86; PULSE 66; RESP 16; TEMP 97.8; O2SAT 99
== END 2025-01-31 02:08 | disposition home or self-care (01) ==
LOC: ER 22:54
DX: M19.012 Primary osteoarthritis, left shoulder (principal); I11.0 Hypertensive heart disease with heart failure; I50.9 Heart failure, unspecified; E11.9 Type 2 diabetes mellitus without complications; I25.10 Atherosclerotic heart disease of native coronary artery without angina pectoris; Z79.84 Long term (current) use of oral hypoglycemic drugs; Z79.899 Other long term (current) drug therapy; Z90.49 Acquired absence of other specified parts of digestive tract; Z90.710 Acquired absence of both cervix and uterus; Z98.890 Other specified postprocedural states
CPT/HCPCS: 73060

== ENCOUNTER 2025-02-26 22:45 | Inpatient (IN) | payer OTHER, MEDICAID ==
[~2025-02-26] VITALS: Ht 170.2 cm; Wt 114.3 kg
--- NOTE | 2025-02-26 23:56 | ED.PDOC ---
History of Present Illness HPI Comments 69 y/o obese F presents with left leg numbness. Patient endorses on sudden and unprovoked onset of symptoms at around [id number], this evening. She also reports loose stool production since yesterday. Patient reports history of CHF, DM, and HTN. She denies any tingling or pain sensation, headache, nausea, vomiting, diarrhea, or further associated symptoms. Chief Complaint: Lower Extremity Time Seen by MD: 23:30 Primary Care Provider: DYLAN Coon Notes: Nurses Notes, Medications, Allergies Allergies: Coded Allergies: NO KNOWN ALLERGIES (Unverified , 09/10/14) Home Meds Active Scripts Lisinopril (Lisinopril) 5 Mg Tab, 20 MG PO DAILY for 30 Days, #120 TAB Prov:ARACELIS PATTERSON RESIDENT 11/13/24 Clonidine Hydrochloride (Clonidine Hcl) 0.1 Mg Tab, 1 TAB PO QPM, #30 TAB 0 Refills Prov:NISH HUMMEL PAC 03/20/24 Reported Medications Cholecalciferol (VITAMIN D3) 2,000 Unit Tab, 1 TAB PO BID, #30 TAB 5 Refills 07/29/24 Furosemide (Furosemide) 20 Mg Tab, 20 MG PO BIDD for 30 Days, MG 07/29/24 Carvedilol (Carvedilol) 12.5 Mg Tab, 1 TAB PO BID 11/14/23 Acarbose (Acarbose) 100 Mg Tab, 100 MG PO DAILY, TAB 01/16/18 Simvastatin (Simvastatin) 40 Mg Tab, 1 TAB PO QPM, #90 TAB 1 Refill 11/10/14 Metformin Hydrochloride (Metformin Hcl) 500 Mg Tab, 500 MG PO TID for 30 Days, MG 11/10/14 Glipizide (Glipizide) 10 Mg Tab, 1 TAB PO BID 11/10/14 Information Source: Patient Mode of Arrival: Ambulatory Severity: Moderate Timing: Hours Duration: Since onset Prehospital treatment: None Past Medical History PAST MEDICAL HISTORY: Angina, Arthritis, CAD, CHF, DM, HTN, GA Surgical History: Cholecystectomy, Hysterectomy, Tonsillectomy 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 Family History Family History: Unknown Social History Smoker: Non-Smoker Alcohol: Denies ETOH Use Drugs: Denies Drug Use Lives In: Home All Other Systems: Reviewed and Negative (Comprehensive systems review obtained and negative except for what is stated in the HPI.) Physical Exam General Appearance: No Apparent Distress, Obese HEENT: Normal ENT Inspection, Pharynx Normal, TMs Normal Neck: Full Range of Motion, Non-Tender, Normal, Normal Inspection Respiratory: Chest Non-Tender, Lungs Clear, No Accessory Muscle Use, No Respiratory Distress, Normal Breath Sounds Cardiovascular: No Edema, No JVD, No Murmur, No Gallop, Normal Peripheral Pulses, Regular Rate/Rhythm Breast Exam: Deferred Gastrointestinal: No Organomegaly, Non Tender, No Pulsatile Mass, Normal Bowel Sounds, Soft Genitalia: Deferred Pelvic: Deferred Rectal: Deferred Extremities: No calf tenderness, Normal capillary refill, Normal inspection, Normal range of motion, Non-tender, No pedal edema Musculoskeletal : Apperance: Normal Neurologic: Alert, genetic 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 Was a procedure done?: No Differential Dx Considerations may include: CVA, TIA, sciatica, electrolyte imbalance, dehydration, sprain, strain, among others X-Ray, Labs, Meds, VS Vital Signs Date Time Temp Pulse Resp B/P (MAP) Pulse Ox O2 Delivery O2 Flow Rate FiO2 02/26/25 23:26 98.2 78 20 176/86 (116) 96 98.2 Lab Test 02/26/25 23:37 02/26/25 23:26 Range/Units White Blood Count 7.8 4.4-10.8 10^3/uL Red Blood Count 4.12 4.0-5.20 10^6/uL Hemoglobin 12.8 12.2-16.2 g/dL Hematocrit 37.3 36.0-46.0 % Mean Corpuscular Volume 90.5 80.0-100.0 fL Mean Corpuscular Hemoglobin 31.0 28.0-32.0 pg Mean Corpuscular Hemoglobin Concent 34.3 32.0-36.0 g/dL Red Cell Distribution Width 13.8 11.8-14.3 % Platelet Count 201 140-450 10^3/uL Mean Platelet Volume 7.6 6.9-10.8 fL Neutrophils (%) (Auto) 60.0 37.0-80.0 % Lymphocytes (%) (Auto) 28.7 10.0-50.0 % Monocytes (%) (Auto) 9.1 0.0-12.0 % Eosinophils (%) (Auto) 1.9 0.0-7.0 % Basophils (%) (Auto) 0.3 0.0-2.0 % Neutrophils # (Auto) 4.7 1.6-8.6 10 ^3/uL Lymphocytes # (Auto) 2.2 0.4-5.4 10 ^3/uL Monocytes # (Auto) 0.7 0-1.3 10 ^3/uL Eosinophils # (Auto) 0.2 0-0.8 10 ^3/uL Basophils # (Auto) 0 0-0.2 10 ^3/uL Nucleated Red Blood Cells 0.0 % Sodium Level 142 136-145 mmol/L Potassium Level 4.4 3.5-5.1 mmol/L Chloride Level 103 98-107 mmol/L Carbon Dioxide Level 29 20-31 mmol/L Anion Gap 10 5-15 Blood Urea Nitrogen 22 9-23 mg/dL Creatinine 1.18 H 0.550-1.02 mg/dL Glomerular Filtration Rate Calc 50 >90 mL/min BUN/Creatinine Ratio 18.6 10.0-20.0 Serum Glucose 173 H 74-106 mg/dL Calcium Level 9.9 8.7-10.4 mg/dL Troponin I High Sensitivity 7 </=34 ng/L Urine Color Yellow Yellow Urine Clarity Clear Clear Urine pH 5.0 5.0-9.0 Urine Specific [place] 1.030 1.001-1.035 Urine Protein Trace H Negative Urine Ketones Trace Negative Urine Blood Negative Negative /uL Urine Nitrite Negative Negative Urine Bilirubin Negative Negative Urine Urobilinogen Normal Negative mg/dL Urine Leukocyte Esterase Negative Negative /uL Urine RBC 1 0 - 4 /hpf Urine Microscopic WBC 1 0-5 /HPF Urine Squamous Epithelial Cells Few <5 /hpf Urine Bacteria None seen None Seen /hpf Urine Hyaline Casts Few 0 - 2 /lpf Urine Mucus Few None Seen Urine Glucose 1+ H Normal mg/dL Time of 1ST Reevaluation: 00:00 Reevaluation 1ST: Unchanged Patient Education/Counseling: Diagnosis, Treatment Family Education/Counseling: No Family Present SEPSIS Sepsis Screen Date sepsis recognized/suspect: Feb 26, 2025 Time Sepsis recognized/suspect: 2314 Recent Procedure: No On Antibiotic Therapy: No Respiratory Rate >20: No Heart Rate >90: No Temp<36 C (96.8 F) or >38.3 C: No SBP <90 or MAP <65 mmHG: No New Acute Mental Status Change: No Is the patient on CPAP, BIPAP,: No Physician Orders Chest Portable (02/26/25 23:29) Head Without Contrast (02/26/25 23:29) Vital Signs Date Time Temp Pulse Resp B/P (MAP) Pulse Ox O2 Delivery O2 Flow Rate FiO2 02/26/25 23:26 98.2 78 20 176/86 (116) 96 98.2 Laboratory Tests Test 02/26/25 23:37 White Blood Count 7.8 10^3/uL (4.4-10.8) Departure 1 Departure Time of Disposition: 01:13 (Patient with left leg numbness paresthesias. Patient's CT brain is benign. Patient's EKGs nonischemic. Patient's labs are benign. Inpatients high-risk morbidity and mortality we will admit patient for further workup and expert consultation) Impression: Primary Impression: Left leg numbness Disposition: ADMITTED INPATIENT Admit to: Med Surg Condition: Serious Critical Care Note Critical Care Time?: Yes Critical care comment: Concern for CVA Authorized and Performed by: Orlando Ford MD Total critical care time: Approximately 38 minutes Due to a high probability of clinically significant, life threatening deterioration, the patient required my highest level of preparedness to intervene emergently and I personally spent this critical care time directly and personally managing the patient. This critical care time included obtaining a history; examining the patient; pulse oximetry; ordering and review of studies; arranging urgent treatment with development of a management plan; evaluation of patient's response to treatment; frequent reassessment; and, discussions with other providers. This critical care time was performed to assess and manage the high probability of imminent, life-threatening deterioration that could result in multi-organ failure. It was exclusive of separately billable procedures and treating other patients and teaching time. Please see my other sections and the rest of the note for further information on patient assessment and treatment. Stability Stability form required: No Heart Score Heart Score: Heart Score Response (Comments) Value History N/A 0 EKG N/A 0 Age N/A 0 Risk Factors N/A 0 Troponin N/A 0 Total 0 I personally scribed for ORLANDO FORD MD ([email or web address]) on 02/26/25 at 23:56. Electronically submitted by Gael Pepe ([email or web address]). ORLANDO FORD MD Feb 26, 2025 23:56
[2025-02-27] LABS: Urine Bacteria None Seen /hpf (None Seen)
[2025-02-27 00:04] LABS: Basophils # (auto) 0 10 ^3/uL (0-0.2); Basophils % (auto) 0.3 % (0.0-2.0); Eosinophils # (auto) 0.2 10 ^3/uL (0-0.8); Eosinophils % (auto) 1.9 % (0.0-7.0); Hematocrit 37.3 % (36.0-46.0); Hemoglobin 12.8 g/dL (12.2-16.2); Lymphocytes # (auto) 2.2 10 ^3/uL (0.4-5.4); Lymphocytes % (auto) 28.7 % (10.0-50.0); Mean Corpuscular Hgb Conc. 34.3 g/dL (32.0-36.0); Mean Corpuscular Volume 90.5 fL (80.0-100.0); Monocytes # (auto) 0.7 10 ^3/uL (0-1.3); Monocytes % (auto) 9.1 % (0.0-12.0); Neutrophils # (auto) 4.7 10 ^3/uL (1.6-8.6); Platelet Count (auto) 201 10^3/uL (140-450); Red Blood Cells 4.12 10^6/uL (4.0-5.20); Red Cell Distribution Width 13.8 % (11.8-14.3); White Blood Cell 7.8 10^3/uL (4.4-10.8)
--- NOTE | 2025-02-27 00:09 | DVH ---
CHEST RADIOGRAPH Indication: left leg weakness Technique: Single frontal view of the chest was obtained COMPARISON: XY CHEST PORTABLE on DOS: 11/12/24, XY CHEST PORTABLE on DOS: 07/28/24, XY CHEST PORTABLE on DOS: 11/13/23, CXRP on DOS: 08/12/22, CHEST PORTABLE on DOS: 08/12/22 FINDINGS: Lines and Tubes: None Lungs: Clear Pleura: No effusion. No pneumothorax. Cardiomediastinal contours: Unremarkable. Atherosclerotic vascular calcifications. Bones: Unremarkable IMPRESSION: 1. No acute disease.
--- NOTE | 2025-02-27 00:10 | DVH ---
EXAM: CT HEAD WITHOUT CONTRAST INDICATION: left leg numbness TECHNIQUE: CT of the head without intravenous contrast. Radiation Dose : 1. Head: CT Dose: CTDI volume is 56 mGy. Dose-length product is 986 mGy*cm The dose indicators for CT are the volume Computed Tomography (CT) Dose Index (CTDIvol) and the Dose Length Product (DLP), and are measured in units of mGy and mGy-cm, respectively. These indicators are not patient dose, but values generated from the CT scanner acquisition factors. The report includes radiation exposure data for exposures received during this examination. COMPARISON: CT HEAD WITHOUT CONTRAST on DOS: 11/12/24, CT HEAD WITHOUT CONTRAST on DOS: 11/13/23 FINDINGS: There is no evidence of acute intracranial hemorrhage, extra-axial collection, mass effect, midline s hift, herniation or hydrocephalus. The ventricles, sulci and cisterns are age appropriate. The mullins-white differentiation is intact. Patchy periventricular and subcortical white matter hypoattenuation is nonspecific but may be related to small vessel ischemic disease. The visualized paranasal sinuses and mastoid air cells are clear. The surrounding soft tissues and osseous structures are unremarkable. IMPRESSION: 1. No acute intracranial abnormality. Radiation optimization: All CT scans at this facility use at least one of these dose optimization jena hniques: automated exposure control mA and/or kV adjustment per patient size (includes targeted exam s where dose is matched to clinical indication) or iterative reconstruction.
[2025-02-27 00:11] LABS: Urine Blood Negative /uL (Negative); Urine Clarity Clear (Clear); Urine Color Yellow (Yellow); Urine Hyaline Cast FEW /lpf (0 - 2); Urine Mucus FEW (None Seen); Urine Protein, UAD TRACE (Negative); Urine Squamous Epithelial Cell FEW /hpf (<5); Urine Urobilinogen Normal (Negative); Urine WBC 1 /HPF (0-5)
[2025-02-27 00:14] LABS: Chloride 103 mmol/L (98-107); Potassium 4.4 mmol/L (3.5-5.1); Sodium 142 mmol/L (136-145)
[2025-02-27 00:15] LABS: Anion Gap 10 (5-15); Carbon Dioxide 29 mmol/L (20-31)
[2025-02-27 00:16] LABS: Calcium 9.9 mg/dL (8.7-10.4)
[2025-02-27 00:21] LABS: BUN/Creatinine Ratio 18.6 (10.0-20.0); Blood Urea Nitrogen 22 mg/dL (9-23)
[2025-02-27 00:22] LABS: Glucose 173 mg/dL (74-106)
[2025-02-27] MEDS: hydrALAZINE HCL 20 MG/ML VL IV ONE (01:27)
[2025-02-27 03:59] VITALS: PULSE 84; RESP 20; O2SAT 96
[2025-02-27] MEDS ORDERED: DEXTROSE (50%) 50ML SYRG IV PRN (06:45)
[2025-02-27] MEDS ORDERED: ONDANSETRON HCL 4 MG/2 ML VIAL IV PRN (06:45)
[2025-02-27] MEDS: ACCU-CHEK COMFORT CURVE STRIP VI SCH (07:00)
[2025-02-27] MEDS ORDERED: RANO500T3 PO (07:06)
--- NOTE | 2025-02-27 07:08 | DVHHP2 ---
History of Present Illness Reason for Visit: Left lower extremity numbness History of Present Illness Milagros March is a 69-year-old female with past medical history of CAD, hypertension, hyperlipidemia, diabetes, CHF, cholecystectomy, hysterectomy, bladder surgery, and tonsillectomy who presents to the ED with left lower extremity numbness and loose stool x1 day. Patient reports that this morning when she woke up her left mora area was causing numbness. She also states that she had loose stool for 1 day brown in color. She denies any recent trauma or injury, chest pain, shortness of breath, fever, chills, recent recent sick contacts, recent ingestion of spoiled food, recent travels, abdominal pain, nausea vomiting, or urinary symptoms. When asked the patient what type of bladder surgery she states she does not recall it was over so many years ago. Cardiovascular: CAD, CHF, HTN, hyperipidemia Endocrine: Diabetes Past Surgical History: Cholecystectomy, Hysterectomy, Other (Bladder surgery), Tonsillectomy Smoke: No ALCOHOL: none Drugs: None Lives: with Family Domestic Violence: Neg Review of Systems Gastrointestinal: Diarrhea Musculoskeletal: other (Left lower extremity numbness) Allergies: Coded Allergies: NO KNOWN ALLERGIES (Unverified , 09/10/14) Medications Current Medications Medications Dose Ordered Sig/Rama Route Start Time Stop Time Status Last Admin Dose Admin Ondansetron HCl 4 mg Q4HP PRN IV 02/27/25 06:45 UNV Acetaminophen 650 mg Q6HP PRN PO 02/27/25 06:45 UNV Patient Own Medication 1 tab BID PO 02/27/25 10:00 UNV Patient Own Medication 1 tab QPM PO 02/27/25 18:00 UNV Exam Vital Signs Vital Signs Date Time Temp Pulse Resp B/P (MAP) Pulse Ox O2 Delivery O2 Flow Rate FiO2 02/27/25 03:59 84 20 96 Room Air* 0 21 02/27/25 02:24 177/67 (103) 02/27/25 01:08 97.8 97.8 General Appearance: Alert, Oriented X3, Cooperative, No acute distress HEENT: Atraumatic, PERRLA, EOMI, Mucous membr. moist/pink Respiratory: Clear to auscultation, Normal air movement Cardiovascular: Regular rate, Normal S1, Normal S2 Abdominal: Soft Extremities: No clubbing, No cyanosis, No edema, Normal pulses Neuro: Normal speech, Strength at 5/5 X4 ext, Normal tone, Sensation intact Psych/Mental Status: Mental status NL, Mood NL Labs/Xrays Labs Test 02/26/25 23:37 02/26/25 23:26 Range/Units White Blood Count 7.8 4.4-10.8 10^3/uL Red Blood Count 4.12 4.0-5.20 10^6/uL Hemoglobin 12.8 12.2-16.2 g/dL Hematocrit 37.3 36.0-46.0 % Mean Corpuscular Volume 90.5 80.0-100.0 fL Mean Corpuscular Hemoglobin 31.0 28.0-32.0 pg Mean Corpuscular Hemoglobin Concent 34.3 32.0-36.0 g/dL Red Cell Distribution Width 13.8 11.8-14.3 % Platelet Count 201 140-450 10^3/uL Mean Platelet Volume 7.6 6.9-10.8 fL Neutrophils (%) (Auto) 60.0 37.0-80.0 % Lymphocytes (%) (Auto) 28.7 10.0-50.0 % Monocytes (%) (Auto) 9.1 0.0-12.0 % Eosinophils (%) (Auto) 1.9 0.0-7.0 % Basophils (%) (Auto) 0.3 0.0-2.0 % Neutrophils # (Auto) 4.7 1.6-8.6 10 ^3/uL Lymphocytes # (Auto) 2.2 0.4-5.4 10 ^3/uL Monocytes # (Auto) 0.7 0-1.3 10 ^3/uL Eosinophils # (Auto) 0.2 0-0.8 10 ^3/uL Basophils # (Auto) 0 0-0.2 10 ^3/uL Nucleated Red Blood Cells 0.0 % Sodium Level 142 136-145 mmol/L Potassium Level 4.4 3.5-5.1 mmol/L Chloride Level 103 98-107 mmol/L Carbon Dioxide Level 29 20-31 mmol/L Anion Gap 10 5-15 Blood Urea Nitrogen 22 9-23 mg/dL Creatinine 1.18 H 0.550-1.02 mg/dL Glomerular Filtration Rate Calc 50 >90 mL/min BUN/Creatinine Ratio 18.6 10.0-20.0 Serum Glucose 173 H 74-106 mg/dL Calcium Level 9.9 8.7-10.4 mg/dL Troponin I High Sensitivity 7 </=34 ng/L Urine Color Yellow Yellow Urine Clarity Clear Clear Urine pH 5.0 5.0-9.0 Urine Specific [place] 1.030 1.001-1.035 Urine Protein Trace H Negative Urine Ketones Trace Negative Urine Blood Negative Negative /uL Urine Nitrite Negative Negative Urine Bilirubin Negative Negative Urine Urobilinogen Normal Negative mg/dL Urine Leukocyte Esterase Negative Negative /uL Urine RBC 1 0 - 4 /hpf Urine Microscopic WBC 1 0-5 /HPF Urine Squamous Epithelial Cells Few <5 /hpf Urine Bacteria None seen None Seen /hpf Urine Hyaline Casts Few 0 - 2 /lpf Urine Mucus Few None Seen Urine Glucose 1+ H Normal mg/dL EXAM: CT HEAD WITHOUT CONTRAST INDICATION: left leg numbness TECHNIQUE: CT of the head without intravenous contrast. Radiation Dose : 1. Head: CT Dose: CTDI volume is 56 mGy. Dose-length product is 986 mGy*cm The dose indicators for CT are the volume Computed Tomography (CT) Dose Index (CTDIvol) and the Dose Length Product (DLP), and are measured in units of mGy and mGy-cm, respectively. These indicators are not patient dose, but values generated from the CT scanner acquisition factors. The report includes radiation exposure data for exposures received during this examination. COMPARISON: CT HEAD WITHOUT CONTRAST on DOS: 11/12/24, CT HEAD WITHOUT CONTRAST on DOS: 11/13/23 FINDINGS: There is no evidence of acute intracranial hemorrhage, extra-axial collection, mass effect, midline shift, herniation or hydrocephalus. The ventricles, sulci and cisterns are age appropriate. The mullins-white differentiation is intact. Patchy periventricular and subcortical white matter hypoattenuation is nonspecific but may be related to small vessel ischemic disease. The visualized paranasal sinuses and mastoid air cells are clear. The surrounding soft tissues and osseous structures are unremarkable. IMPRESSION: 1. No acute intracranial abnormality. CHEST RADIOGRAPH Indication: left leg weakness Technique: Single frontal view of the chest was obtained COMPARISON: XY CHEST PORTABLE on DOS: 11/12/24, XY CHEST PORTABLE on DOS: 07/28/24, XY CHEST PORTABLE on DOS: 11/13/23, CXRP on DOS: 08/12/22, CHEST PORTABLE on DOS: 08/12/22 FINDINGS: Lines and Tubes: None Lungs: Clear Pleura: No effusion. No pneumothorax. Cardiomediastinal contours: Unremarkable. Atherosclerotic vascular calcifications. Bones: Unremarkable IMPRESSION: 1. No acute disease. Assessment/Plan Assessment/Plan Assessment Hypertensive urgency Acute on chronic CHF exacerbation ANUJA Diabetes type 2 HFmEF, 55% History of CAD History of hypertension History of hyperlipidemia History of cholecystectomy History of hysterectomy History of bladder surgery History of tonsillectomy Plan Admit to [facility] Antihypertensives CT head noted Chest x-ray noted Troponin negative Hemoglobin A1c ISS and Accu-Cheks Ultrasound lower extremity Stool to rule out C diff Echo ordered Last echo done on 11/13/2023 EF 55% BNP Diuretics Strict I&Os Daily weight Diet DVT prophylaxis-not indicated patient ambulating PUD prophylaxis-H2 blockers Discussed plan of care with patient and nurse Plan discussed with: Patient 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 Procedure Category Date Status Time Allergies SHIRA 02/27/25 In Process 06:40 Code Status CODE 02/27/25 Transmitted 06:40 Ondansetron Hcl PHA 02/27/25 Logged (Zofran) 06:45 Complete Blood Count LAB 02/28/25 Verified 04:00 Comprehensive LAB 02/28/25 Verified Metabolic Panel 04:00 Cardiac DIET 02/27/25 Transmitted Diet-2gna,Lofat,Lochol Breakfast Acetaminophen Tablet PHA 02/27/25 Logged (Tylenol Tablet) 06:45 Sequential SHIRA 02/27/25 In Process Compression Device Admit ADMIT 02/27/25 Transmitted 06:40 Glucose Blood PHA 02/27/25 Transmitted (Accu-Chek Comfort 07:00 Mild Sliding Scale PHA 02/27/25 Transmitted 07:00 Dextrose 50% Syringe PHA 02/27/25 Transmitted 06:45 Hemoglobin A1c LAB 02/27/25 Logged 06:40 Stool Bacterial LAMBERT 02/27/25 Logged Culture 06:40 Carvedilol Tablet PHA 02/27/25 Transmitted (Coreg Tablet) 10:00 Lisinopril Tablet PHA 02/27/25 Transmitted (Zestril Tablet) 10:00 (Nf) Acarbose PHA 02/27/25 Transmitted 10:00 (Nf) Cholecalciferol PHA 02/27/25 Logged (Vitamin D3) 10:00 (Nf) Simvastatin PHA 02/27/25 Logged 18:00 Furosemide Injection PHA 02/27/25 Transmitted (Lasix Injection) 10:00 B-Type Natriuretic LAB 02/27/25 Transmitted Peptide 07:07 Date of Service: Feb 27, 2025 Billing Provider: RENETTA MONK Common Visit Codes: [id number] INP/OBS CARE (HIGH) RENETTA MONK Feb 27, 2025 07:08
[2025-02-27] MEDS: InsuLIN REG 1unit/0.01ml Soln (100units/ml) SC SCH (07:39)
[2025-02-27] MEDS: CARVEDILOL 12.5 MG TAB PO SCH (10:35)
[2025-02-27] MEDS: FUROSEMIDE 40 MG/4 ML VIAL IV SCH (10:35)
[2025-02-27] MEDS: LISINOPRIL 20 MG TAB PO SCH (10:36)
[2025-02-27] MEDS: CHOLECALCIFEROL (VITD3) 1,000UNIT=25mCg TAB PO SCH (10:36)
[2025-02-27] MEDS ORDERED: hydrALAZINE HCL 20 MG/ML VL IV PRN (17:30)
[2025-02-27 17:34] VITALS: BP 155/91; PULSE 66; RESP 18; TEMP 98.1; O2SAT 98
[2025-02-27] MEDS ORDERED: FAMO-12 PO (17:36)
[2025-02-27 21:00] VITALS: BP 162/82; PULSE 70; RESP 17; TEMP 97.3; O2SAT 99
[2025-02-27] MEDS: ATORVASTATIN 20 MG TAB PO SCH (21:34)
[2025-02-27] MEDS: ACETAMINOPHEN 325 MG TAB PO PRN (21:37)
[2025-02-27 22:09] VITALS: BP 146/53; PULSE 71; RESP 18; TEMP 98.3; O2SAT 98
[2025-02-27] MEDS: FAMOTIDINE 20 MG TAB PO SCH (22:45)
[2025-02-28 01:00] VITALS: BP 102/56; PULSE 71; RESP 18; TEMP 96.6; O2SAT 96
[2025-02-28 05:00] VITALS: BP 99/48; PULSE 70; RESP 18; TEMP 97.8; O2SAT 99
[2025-02-28 07:21] LABS: Alanine Aminotransferase 12 U/L (7-40); Albumin 3.6 g/dL (3.2-4.8); Anion Gap 10 (5-15); Aspartate Aminotransferase 17 U/L (<34); BUN/Creatinine Ratio 25.3 (10.0-20.0); Carbon Dioxide 29 mmol/L (20-31); Chloride 104 mmol/L (98-107); Potassium 3.9 mmol/L (3.5-5.1); Sodium 143 mmol/L (136-145)
[2025-02-28 07:23] LABS: Bilirubin, Total 0.6 mg/dL (0.2-1.0)
[2025-02-28 07:28] LABS: Alkaline Phosphatase 35 U/L (46-116); Blood Urea Nitrogen 25 mg/dL (9-23); Glucose 127 mg/dL (74-106); Total Protein 5.5 g/dL (5.7-8.2)
[2025-02-28 07:59] LABS: Basophils # (auto) 0 10 ^3/uL (0-0.2); Basophils % (auto) 0.3 % (0.0-2.0); Eosinophils # (auto) 0.1 10 ^3/uL (0-0.8); Eosinophils % (auto) 1.7 % (0.0-7.0); Hemoglobin 12.2 g/dL (12.2-16.2); Lymphocytes # (auto) 2.2 10 ^3/uL (0.4-5.4); Lymphocytes % (auto) 29.6 % (10.0-50.0); Mean Corpuscular Hemoglobin 30.7 pg (28.0-32.0); Mean Corpuscular Hgb Conc. 33.9 g/dL (32.0-36.0); Mean Corpuscular Volume 90.6 fL (80.0-100.0); Monocytes # (auto) 0.7 10 ^3/uL (0-1.3); Monocytes % (auto) 10.1 % (0.0-12.0); Neutrophils # (auto) 4.3 10 ^3/uL (1.6-8.6); Neutrophils % (auto) 58.3 % (37.0-80.0); Nucleated Red Blood Cells % 0.1 %; Platelet Count (auto) 190 10^3/uL (140-450); Red Blood Cells 3.97 10^6/uL (4.0-5.20); Red Cell Distribution Width 13.3 % (11.8-14.3); White Blood Cell 7.4 10^3/uL (4.4-10.8)
[2025-02-28 09:00] VITALS: BP 116/60; PULSE 75; RESP 16; TEMP 98.1; O2SAT 96
--- NOTE | 2025-02-28 11:49 | DVHPN2 ---
Reviewed: Care Plan, H&P, Labs, Medications, Previous Orders Changes from previous H/P or p: No Changes General: Per HPI Gastrointestinal: Diarrhea Musculoskeletal: other (Left lower extremity numbness) Objective Vitals Vital Signs Date Time Temp Pulse Resp B/P (MAP) Pulse Ox O2 Delivery O2 Flow Rate FiO2 02/28/25 09:41 116/60 02/28/25 09:41 75 02/28/25 09:00 98.1 16 96 98.1 02/27/25 22:09 Room Air* 0 21 Intake/Output Intake and Output 02/28/25 07:00 Intake Total 240 ml Output Total 50 ml Balance 190 ml Intake Oral 240 ml Output Urine Total 50 ml # Voids 1 Medications Current Medications Medications Dose Ordered Sig/Rama Route Start Time Stop Time Status Last Admin Dose Admin Ondansetron HCl 4 mg Q4HP PRN IV 02/27/25 06:45 Acetaminophen 650 mg Q6HP PRN PO 02/27/25 06:45 02/28/25 09:42 650 MG Diagnostic Test (Pha) 1 strip ACHS 02/27/25 07:00 02/28/25 06:31 1 STRIP Insulin Human Regular ACHS SC 02/27/25 07:00 02/27/25 21:36 6 UNITS Dextrose 50 ml UD PRN IV 02/27/25 06:45 Carvedilol 12.5 mg BID PO 02/27/25 10:00 02/28/25 09:41 12.5 MG Lisinopril 20 mg DAILY PO 02/27/25 10:00 02/28/25 09:40 20 MG Patient Own Medication 100 mg DAILY PO 02/27/25 10:00 Cholecalciferol 2,000 unit BID PO 02/27/25 10:00 02/28/25 09:41 2,000 UNIT Atorvastatin Calcium 20 mg HS PO 02/27/25 22:00 02/27/25 21:34 20 MG Furosemide 40 mg DAILY IV 02/27/25 10:00 02/28/25 09:41 40 MG Hydralazine HCl 10 mg Q6HP PRN IV 02/27/25 17:30 Famotidine 20 mg BID PO 02/27/25 22:00 02/28/25 09:41 20 MG Laboratory Results Laboratory Tests 02/28/25 06:25 02/28/25 07:24 Chemistry Test 02/28/25 06:25 Albumin 3.6 g/dL (3.2-4.8) Calcium Level 10.0 mg/dL (8.7-10.4) Total Protein 5.5 g/dL (5.7-8.2) L LFT Test 02/28/25 06:25 Alanine Aminotransferase (ALT) 12 U/L (7-40) Alkaline Phosphatase 35 U/L (46-116) L Aspartate Amino Transferase (AST) 17 U/L (<34) Total Bilirubin 0.6 mg/dL (0.2-1.0) Urinalysis Test 02/26/25 23:26 Urine Color Yellow (Yellow) Urine Clarity Clear (Clear) Urine pH 5.0 (5.0-9.0) Urine Specific [place] 1.030 (1.001-1.035) Urine Protein Trace (Negative) H Urine Ketones Trace (Negative) Urine Blood Negative /uL (Negative) Urine Nitrite Negative (Negative) Urine Bilirubin Negative (Negative) Urine Urobilinogen Normal mg/dL (Negative) Urine Leukocyte Esterase Negative /uL (Negative) Urine RBC 1 /hpf (0 - 4) Urine Microscopic WBC 1 /HPF (0-5) Urine Squamous Epithelial Cells Few /hpf (<5) Urine Bacteria None seen /hpf (None Seen) Urine Hyaline Casts Few /lpf (0 - 2) Urine Mucus Few (None Seen) Urine Glucose 1+ mg/dL (Normal) H Assessment/Plan Assessment/Plan Milagros March is a 69-year-old female with past medical history of CAD, hypertension, hyperlipidemia, diabetes, CHF, cholecystectomy, hysterectomy, bladder surgery, and tonsillectomy who presents to the ED with left lower extremity numbness and loose stool x1 day. Patient reports that this morning when she woke up her left mora area was causing numbness. She also states that she had loose stool for 1 day brown in color. She denies any recent trauma or injury, chest pain, shortness of breath, fever, chills, recent recent sick contacts, recent ingestion of spoiled food, recent travels, abdominal pain, nausea vomiting, or urinary symptoms. When asked the patient what type of bladder surgery she states she does not recall it was over so many years ago. Hypertensive urgency Acute on chronic CHF exacerbation ANUJA Diabetes type 2 HFmEF, 55% History of CAD History of hypertension History of hyperlipidemia History of cholecystectomy History of hysterectomy History of bladder surgery History of tonsillectomy UA Antihypertensives CT head noted Chest x-ray noted Troponin negative Hemoglobin A1c ISS and Accu-Cheks Ultrasound lower extremity Stool to rule out C diff Echo ordered Last echo done on 11/13/2023 EF 55% BNP Diuretics Strict I&Os Daily weight Diet DVT prophylaxis-not indicated patient ambulating PUD prophylaxis-H2 blockers Discussed plan of care with patient and nurse Plan discussed with: Patient Date of Service: Feb 28, 2025 Billing Provider: MELQUIADES TENA DO Common Visit Codes: [id number] INP/OBS CARE(HIGH) MELQUIADES TENA DO Feb 28, 2025 11:49
[2025-02-28 13:00] VITALS: BP 111/61; PULSE 65; RESP 16; TEMP 97.8; O2SAT 94
[2025-02-28 17:00] VITALS: BP 110/39; PULSE 70; RESP 18; TEMP 98; O2SAT 97
[2025-02-28 21:00] VITALS: BP 128/64; PULSE 61; RESP 18; TEMP 97.6; O2SAT 99
--- NOTE | 2025-02-28 23:28 | DVHINCON2 ---
Date of service: Feb 28, [address] Pandey Reason for Consultation Neuropathy History of Present Illness Ms. March is a 69-year-old right-handed female with a history of hypertension, diabetes, coronary artery disease, heart attack, angina, arthritis, obesity, she came to [facility] on 02/26/2025 with a chief company of left leg numbness, and time, she is alert and fully oriented, she provided the following history I saw her on 02/19/2015 for vertigo/BPPV On 02/24/2025, she woke up with constant nonprogressive numbness only in the distal portion of the lateral left leg. There was no associated weakness in the leg, ankle or toe, there was no pain in the lumbar spine. She has never had similar problem before, she has not seen improvement he at CBC, 02/28/2025: Unremarkable CMP, 02/28/2025: Unremarkable HGB A1c, 02/27/2025: 6.6 CT head, 02/26/2025: No acute intracranial abnormality Past Medical History Hypertension, diabetes, coronary artery disease, heart attack, angina, arthritis, obesity Past Surgical History Cholecystectomy, hysterectomy, tonsillectomy Family History: FH: CHF (congestive heart failure) G8 MOTHER, G8 FATHER, Family history: Cardiovascular disease G8 MOTHER, G8 FATHER, Family history: Diabetes mellitus G8 MOTHER, G8 FATHER, Family history: Hypertension G8 MOTHER, G8 FATHER, Family History Heart disease, hypertension, heart disease Social History She has no history of tobacco smoking, drug or alcohol abuse Allergies: Coded Allergies: NO KNOWN ALLERGIES (Unverified , 09/10/14) Home Meds Active Scripts Lisinopril (Lisinopril) 5 Mg Tab, 20 MG PO DAILY for 30 Days, #120 TAB Prov:ARACELIS PATTERSON RESIDENT 11/13/24 Reported Medications Famotidine (Famotidine) 20 Mg Tab, 1 TAB PO BID 02/27/25 Ranolazine (Ranolazine ER) 500 Mg Tab, 1 TAB PO BID 02/27/25 Cholecalciferol (VITAMIN D3) 2,000 Unit Tab, 1 TAB PO BID, #30 TAB 5 Refills 07/29/24 Carvedilol (Carvedilol) 12.5 Mg Tab, 1 TAB PO BID 11/14/23 Acarbose (Acarbose) 100 Mg Tab, 100 MG PO DAILY, TAB 01/16/18 Simvastatin (Simvastatin) 40 Mg Tab, 1 TAB PO QPM, #90 TAB 1 Refill 11/10/14 Metformin Hydrochloride (Metformin Hcl) 500 Mg Tab, 500 MG PO TID for 30 Days, MG 11/10/14 Glipizide (Glipizide) 10 Mg Tab, 1 TAB PO BID 11/10/14 Review of Systems As above, the rest systems are negative Vital Signs Vital Signs Date Time Temp Pulse Resp B/P (MAP) Pulse Ox O2 Delivery O2 Flow Rate FiO2 02/28/25 22:18 75 128/64 02/28/25 21:00 97.6 18 99 97.6 02/27/25 22:09 Room Air* 0 21 Physical Exam GENERAL EXAM: General: the patient is well developed and nourished. No acute distress. HEENT: Normocephalic, neck is supple, no carotid bruits. No mass. RESPIRATORY: Normal respiratory effort with symmetrical lung expansion. Lungs clear to auscultation. CARDIOVASCULAR: Regular rate and rhythm with no murmurs. S1, S2. ABDOMEN: Soft, nontender, normal bowel sound No tenderness to palpation in the lumbar spine NEUROLOGICAL: MENTAL STATUS: Awake and alert. Oriented to person, place, time and general circumstances. Able to give personal history. SPEECH, LANGUAGE, HIGHER CORTICAL FUNCTION: no aphasia or dysathria. CRANIAL NERVES: #2: Intact visual sarmiento to confrontation. The optic discs were sharp. #3,4,6: Pupils are equal, round and reactive. EOMs full and conjugate. No nystagmus. #5: Facial sensation intact in all three divisions bilaterally. Mandibular strength intact. #7: Facial muscles symmetrical and strength intact. #8: Hearing grossly normal to voice. #9,10: Uvula and soft palate rise in the midline. Swallow and voice are normal. #11: Trapezius and sternomastoid strength intact bilaterally. #12: Tongue midline. No fasciculations or atrophy. SENSATION: Sensation to touch and pinprick is diminished only in a small area in the lateralized aspect of the distal left leg MOTOR: Normal tone in the upper and lower extremity. Normal muscle bulk. No fasciculations. No abnormal movements or posturing. Muscle strength of the major groups in the upper extremities is 5/5. Muscle strength of the major groups in the lower extremities is 5/5. REFLEXES: Deep tendon reflexes normal and symmetrical. No pathological reflexes. CEREBELLAR/COORDINATION: Finger to nose is normal bilaterally. GAIT/STATION: deferred. Labs/Diagnostic Data Labs Test 02/28/25 17:01 02/28/25 07:24 02/28/25 06:25 02/27/25 07:27 Range/Units POC Glucose 198 H 70-106 mg/dl White Blood Count 7.4 4.4-10.8 10^3/uL Red Blood Count 3.97 L 4.0-5.20 10^6/uL Hemoglobin 12.2 12.2-16.2 g/dL Hematocrit 36.0 36.0-46.0 % Mean Corpuscular Volume 90.6 80.0-100.0 fL Mean Corpuscular Hemoglobin 30.7 28.0-32.0 pg Mean Corpuscular Hemoglobin Concent 33.9 32.0-36.0 g/dL Red Cell Distribution Width 13.3 11.8-14.3 % Platelet Count 190 140-450 10^3/uL Mean Platelet Volume 7.9 6.9-10.8 fL Neutrophils (%) (Auto) 58.3 37.0-80.0 % Lymphocytes (%) (Auto) 29.6 10.0-50.0 % Monocytes (%) (Auto) 10.1 0.0-12.0 % Eosinophils (%) (Auto) 1.7 0.0-7.0 % Basophils (%) (Auto) 0.3 0.0-2.0 % Neutrophils # (Auto) 4.3 1.6-8.6 10 ^3/uL Lymphocytes # (Auto) 2.2 0.4-5.4 10 ^3/uL Monocytes # (Auto) 0.7 0-1.3 10 ^3/uL Eosinophils # (Auto) 0.1 0-0.8 10 ^3/uL Basophils # (Auto) 0 0-0.2 10 ^3/uL Nucleated Red Blood Cells 0.1 % Sodium Level 143 136-145 mmol/L Potassium Level 3.9 3.5-5.1 mmol/L Chloride Level 104 98-107 mmol/L Carbon Dioxide Level 29 20-31 mmol/L Anion Gap 10 5-15 Blood Urea Nitrogen 25 H 9-23 mg/dL Creatinine 0.99 0.550-1.02 mg/dL Glomerular Filtration Rate Calc 62 >90 mL/min BUN/Creatinine Ratio 25.3 H 10.0-20.0 Serum Glucose 127 H 74-106 mg/dL Calcium Level 10.0 8.7-10.4 mg/dL Total Bilirubin 0.6 0.2-1.0 mg/dL Aspartate Amino Transferase (AST) 17 <34 U/L Alanine Aminotransferase (ALT) 12 7-40 U/L Alkaline Phosphatase 35 L 46-116 U/L Total Protein 5.5 L 5.7-8.2 g/dL Albumin 3.6 3.2-4.8 g/dL Hemoglobin A1c 6.6 H <5.7 % A1C B-Type Natriuretic Peptide 31.12 0-100 pg/mL Test 02/26/25 23:37 02/26/25 23:26 Range/Units Troponin I High Sensitivity 7 </=34 ng/L Urine Color Yellow Yellow Urine Clarity Clear Clear Urine pH 5.0 5.0-9.0 Urine Specific [place] 1.030 1.001-1.035 Urine Protein Trace H Negative Urine Ketones Trace Negative Urine Blood Negative Negative /uL Urine Nitrite Negative Negative Urine Bilirubin Negative Negative Urine Urobilinogen Normal Negative mg/dL Urine Leukocyte Esterase Negative Negative /uL Urine RBC 1 0 - 4 /hpf Urine Microscopic WBC 1 0-5 /HPF Urine Squamous Epithelial Cells Few <5 /hpf Urine Bacteria None seen None Seen /hpf Urine Hyaline Casts Few 0 - 2 /lpf Urine Mucus Few None Seen Urine Glucose 1+ H Normal mg/dL Assessment Paresthesia/sensory loss in the lateral aspect of the left leg without associated motor dysfunction ? Mononeuropathy to the left superior facial fibular nerves ? Left peroneal mononeuropathy ? Left L5 radiculopathy Plan/Recommendation Monitoring Supportive treatment MRI lumbar spine More recommendation per clinical course Progress: Poor This medical document was created using an electronic medical record system with [employer] system. Although this document has been carefully reviewed, there may still be some phonetic and typographical errors. These areas are purely typographical due to imperfections of the software programs, and do not reflect any compromise in the patient's medical care. Plan discussed with: Patient, Other RAHEEM DAVENPORT MD Feb 28, 2025 23:28
[2025-03-01 01:00] VITALS: BP 120/66; PULSE 65; RESP 17; TEMP 98; O2SAT 95
[2025-03-01 05:00] VITALS: BP 94/51; PULSE 67; RESP 19; TEMP 97.2; O2SAT 95
[2025-03-01] MEDS: LORazepam 2MG/ML-1ML VIAL IV PRN (07:43)
[2025-03-01 08:33] VITALS: BP 103/41; PULSE 64; RESP 20; TEMP 98.3; O2SAT 96
--- NOTE | 2025-03-01 09:01 | DVH ---
EXAM: MRI LUMBAR SPINE WO CONTRAST CLINICAL HISTORY: Radiculopathy COMPARISON: None TECHNIQUE: MRI imaging of the lumbar was performed on a MRI imaging system without intravenous contrast. FINDINGS: For the purposes of this examination, the last well-formed intervertebral disc space will be designat ed as L5-S1. By this convention, the conus medullaris terminates at the L1 level. There is minimal stepwise anterolisthesis of L4 and L5 and L5 on S1. Lumbar alignment is otherwise ma intained. There is multi level disc desiccation with marginal osteophytes, with disc height loss most notable at L2. There is no fracture or subluxation. At the T12-L1 level, there is no evidence of central spinal canal or neuroforaminal stenosis. At the L1-L2 level, there is a broad based bilobed posterior disc bulge resulting in mild neuroforami nal narrowing. No significant spinal canal stenosis. At the L2-L3 level, small posterior disc bulge with mild facet arthrosis results in mild spinal canal stenosis. Mild bilateral neuroforaminal narrowing. At the L3-L4 level, there is a broad based posterior disc bulge with facet arthrosis which results in mild spinal canal narrowing and mild bilateral neuroforaminal narrowing. At the L4-L5 level, there is a large broad based posterior disc protrusion, asymmetric left with liga mentum flavum infolding which results in moderate spinal canal narrowing and severe- obliterated left neuroforamina with compression of the exiting L4 nerve root. There is moderate right neuroforaminal narrowing. There is contact of the traversing L5 nerve roots. At the L5-S1 level, there is a annular tear with a small left paracentral disc extrusion on a backgro und of a broad based disc bulge which results in compression of the traversing left S1 nerve root. Th ere is severe left and mild right neuroforaminal narrowing. There is mild spinal canal stenosis. IMPRESSION: 1. Disc herniation with superimposed facet disease results in severe left neuroforaminal narrowing fr om L4-S1 with compression of the left L4,L5,S1 nerve roots as described above.
[2025-03-01 12:39] VITALS: BP 108/52; PULSE 61; RESP 20; TEMP 98.1; O2SAT 97
[2025-03-01 17:08] VITALS: BP 126/59; PULSE 73; RESP 20; TEMP 98.5; O2SAT 100
--- NOTE | 2025-03-01 19:57 | DVHPN2 ---
Progress Note - Dictate Date Seen: Mar 01, 2025 Medical Necessity Reason Pt with a Central, PICC or Fol: No Subjective Ms. March is a 69-year-old right-handed female with a history of hypertension, diabetes, coronary artery disease, heart attack, angina, arthritis, obesity, she came to [facility] on 02/26/2025 with a chief company of left leg numbness I saw her on 02/19/2015 for vertigo/BPPV I have seen and examined the patient, I have talked to her nurse, she is doing fine, alert and fully oriented, she reports the paresthesia in the left leg remained about the same but less intense. Again she confirm no low back pain, no weakness in the legs, CBC, 02/28/2025: Unremarkable CMP, 02/28/2025: Unremarkable HGB A1c, 02/27/2025: 6.6 CT head, 02/26/2025: No acute intracranial abnormality MRI lumbar spine, 03/01/2025: Disc herniation with superimposed facet disease results in severe left neuroforaminal narrowing from L4-S1 with compression of the left L4,L5,S1 nerve roots as described above vital signs Vital Sign Date Time Temp Pulse Resp B/P (MAP) Pulse Ox O2 Delivery O2 Flow Rate FiO2 03/01/25 17:08 98.5 73 20 126/59 (81) 100 98.5 03/01/25 08:00 Room Air* 0 21 Total Intake and Output 02/28/25 02/28/25 03/01/25 15:00 23:00 07:00 Intake Total 850 ml 800 ml Output Total 500 ml Balance 350 ml 800 ml medications Current Medications Medications Dose Ordered Sig/Rama Route Start Time Stop Time Status Last Admin Dose Admin Ondansetron HCl 4 mg Q4HP PRN IV 02/27/25 06:45 Acetaminophen 650 mg Q6HP PRN PO 02/27/25 06:45 02/28/25 17:17 650 MG Diagnostic Test (Pha) 1 strip ACHS 02/27/25 07:00 03/01/25 17:10 1 STRIP Insulin Human Regular ACHS SC 02/27/25 07:00 03/01/25 17:25 6 UNITS Dextrose 50 ml UD PRN IV 02/27/25 06:45 Carvedilol 12.5 mg BID PO 02/27/25 10:00 03/01/25 09:34 12.5 MG Lisinopril 20 mg DAILY PO 02/27/25 10:00 03/01/25 09:34 20 MG Patient Own Medication 100 mg DAILY PO 02/27/25 10:00 Cholecalciferol 2,000 unit BID PO 02/27/25 10:00 03/01/25 09:34 2,000 UNIT Atorvastatin Calcium 20 mg HS PO 02/27/25 22:00 02/28/25 22:18 20 MG Furosemide 40 mg DAILY IV 02/27/25 10:00 03/01/25 09:33 40 MG Hydralazine HCl 10 mg Q6HP PRN IV 02/27/25 17:30 Famotidine 20 mg BID PO 02/27/25 22:00 03/01/25 09:34 20 MG Lorazepam 1 mg ONCE PRN IV 03/01/25 00:15 03/01/25 07:43 1 MG objective General: the patient is well developed and nourished. No acute distress. No tenderness to palpation in the lumbar spine MENTAL STATUS: Awake and alert. Oriented to person, place, time and general circumstances. Able to give personal history. SPEECH, LANGUAGE, HIGHER CORTICAL FUNCTION: no aphasia or dysathria. CRANIAL NERVES: Pupils are equal, round and reactive. EOMs full and conjugate. No nystagmus. Facial sensation intact in all three divisions bilaterally. Mandibular strength intact. Facial muscles symmetrical and strength intact. SENSATION: Sensation to touch and pinprick is diminished only in a small area in the lateralized aspect of the distal left leg MOTOR: Normal tone in the upper and lower extremity. Normal muscle bulk. No fasciculations. No abnormal movements or posturing. Muscle strength of the major groups in the extremities is 5/5. REFLEXES: Deep tendon reflexes normal and symmetrical. No pathological reflexes. CEREBELLAR/COORDINATION: Finger to nose is normal bilaterally. GAIT/STATION: deferred. laboratory and microbiology Laboratory Tests 02/28/25 07:24 02/28/25 06:25 Test 02/28/25 06:25 Range/Units Serum Glucose 127 H 74-106 mg/dL Problem List Paresthesia/sensory loss in the lateral aspect of the left leg without associated motor dysfunction ? Mononeuropathy to the left superficial fibular nerve ? Left peroneal mononeuropathy ? Left L5 radiculopathy Radiculopathy per MRI scan, I do not think her symptoms are related to the p atient's nerve in the MRI lumbar scar Assessment/Plan Monitoring Supportive treatment More recommendation per clinical course This medical document was created using an electronic medical record system with [employer] dictation system. Although this document has been carefully reviewed, there may still be some phonetic and typographical errors. These areas are purely typographical due to imperfections of the software programs, and do not reflect any compromise in the Prognosis poor Plan discussed with: Patient, Other RAHEEM DAVENPORT MD Mar 01, 2025 19:57
[2025-03-01 21:00] VITALS: BP_SYST 127; BP_SYST 97; BP_DIAS 55; BP_DIAS 59; PULSE 67; PULSE 75; RESP 17; RESP 18; TEMP 98.1; TEMP 98.2; O2SAT 94; O2SAT 95
[2025-03-02] VITALS (7 sets, daily range): BP systolic 101–146; BP diastolic 34–78; PULSE 62–71; RESP 16–20; TEMP 98.1–98.7; O2SAT 96–100
--- NOTE | 2025-03-02 00:19 | DVHSR ---
APPROVED REPORT EXAM: Two-dimensional and M-mode echocardiogram with Doppler and color Doppler. Blood Pressure: 177/67 mmHg INDICATION chf exac RISK FACTORS Obesity: Height: 5'7, Weight: 245 DIMENSIONS LVDd3.9 (3.8-5.7cm)LA (2D)3.0 (1.9-4.0cm)Aortic Root3.2 (2.0-3.7cm) LVDs2.7 (2.5-4.0cm)LA (MM) (1.9-4.0cm)Aortic Cusp Exc1.5 (1.5-2.0cm) EF (%) 55.0 (55-70%)Rt. Atrium2.8 (1.9-4.0cm)Asc. Aorta cm IVSd1.1 (0.7-1.1cm)RV (D)2.7 (1.8-2.4cm) PWd0.9 (0.7-1.1cm) Mitral Valve MitralMitral Stenosis E wave0.56m/sMV Mean GR.mmHg A wave1.10m/sMV Peak GR.53mmHg E/A ratio0.52D MVAcm2 DECEL [id number] 1/2 Timems Aortic Valve Aortic ValveAortic Stenosis V10.96m/Mirian Mean GR.3mmHg V21.28m/Mirian Peak GR.7mmHg LVOT Diameter2.1 (1.8-2.4cm)Doppler AVA2.60cm2 Pulmonic Valve V20.91m/s Other Information Technically limited study due to patient position.body habitus. Conclusion LV EF IS 65% NORMAL VALVES DYSKINESIS OF IVS MODERATELY DILATED RV SUSPICIOUS OF RV STRAIN PATTERN NO EFFUSION
--- NOTE | 2025-03-02 13:02 | DVHPN2 ---
Reviewed: Care Plan, H&P, Labs, Medications, Previous Orders Changes from previous H/P or p: No Changes General: Per HPI Gastrointestinal: Diarrhea Musculoskeletal: other (Left lower extremity numbness) Objective Vitals Vital Signs Date Time Temp Pulse Resp B/P (MAP) Pulse Ox O2 Delivery O2 Flow Rate FiO2 03/02/25 09:56 68 137/48 03/02/25 09:04 98.4 20 100 98.4 03/02/25 08:00 Room Air* 0 21 Intake/Output Intake and Output 03/02/25 07:00 Intake Total 5680 ml Output Total 600 ml Balance 5080 ml Intake Oral 5680 ml Output Urine Total 600 ml # Voids 4 Medications Current Medications Medications Dose Ordered Sig/Rama Route Start Time Stop Time Status Last Admin Dose Admin Ondansetron HCl 4 mg Q4HP PRN IV 02/27/25 06:45 Acetaminophen 650 mg Q6HP PRN PO 02/27/25 06:45 03/02/25 07:27 650 MG Diagnostic Test (Pha) 1 strip ACHS 02/27/25 07:00 03/02/25 12:41 1 STRIP Insulin Human Regular ACHS SC 02/27/25 07:00 03/02/25 12:45 4 UNITS Dextrose 50 ml UD PRN IV 02/27/25 06:45 Carvedilol 12.5 mg BID PO 02/27/25 10:00 03/02/25 09:56 12.5 MG Lisinopril 20 mg DAILY PO 02/27/25 10:00 03/02/25 09:55 20 MG Patient Own Medication 100 mg DAILY PO 02/27/25 10:00 Cholecalciferol 2,000 unit BID PO 02/27/25 10:00 03/02/25 09:54 2,000 UNIT Atorvastatin Calcium 20 mg HS PO 02/27/25 22:00 03/01/25 22:45 20 MG Furosemide 40 mg DAILY IV 02/27/25 10:00 03/02/25 09:54 40 MG Hydralazine HCl 10 mg Q6HP PRN IV 02/27/25 17:30 Famotidine 20 mg BID PO 02/27/25 22:00 03/02/25 09:54 20 MG Lorazepam 1 mg ONCE PRN IV 03/01/25 00:15 03/01/25 07:43 1 MG Laboratory Results Laboratory Tests 02/28/25 06:25 02/28/25 07:24 Urinalysis Test 02/26/25 23:26 Urine Color Yellow (Yellow) Urine Clarity Clear (Clear) Urine pH 5.0 (5.0-9.0) Urine Specific [place] 1.030 (1.001-1.035) Urine Protein Trace (Negative) H Urine Ketones Trace (Negative) Urine Blood Negative /uL (Negative) Urine Nitrite Negative (Negative) Urine Bilirubin Negative (Negative) Urine Urobilinogen Normal mg/dL (Negative) Urine Leukocyte Esterase Negative /uL (Negative) Urine RBC 1 /hpf (0 - 4) Urine Microscopic WBC 1 /HPF (0-5) Urine Squamous Epithelial Cells Few /hpf (<5) Urine Bacteria None seen /hpf (None Seen) Urine Hyaline Casts Few /lpf (0 - 2) Urine Mucus Few (None Seen) Urine Glucose 1+ mg/dL (Normal) H Assessment/Plan Assessment/Plan Milagros March is a 69-year-old female with past medical history of CAD, hypertension, hyperlipidemia, diabetes, CHF, cholecystectomy, hysterectomy, bladder surgery, and tonsillectomy who presents to the ED with left lower extremity numbness and loose stool x1 day. Patient reports that this morning when she woke up her left mora area was causing numbness. She also states that she had loose stool for 1 day brown in color. She denies any recent trauma or injury, chest pain, shortness of breath, fever, chills, recent recent sick contacts, recent ingestion of spoiled food, recent travels, abdominal pain, nausea vomiting, or urinary symptoms. When asked the patient what type of bladder surgery she states she does not recall it was over so many years ago. Hypertensive urgency Acute on chronic CHF exacerbation ANUJA Diabetes type 2 HFmEF, 55% History of CAD History of hypertension History of hyperlipidemia History of cholecystectomy History of hysterectomy History of bladder surgery History of tonsillectomy UA Antihypertensives CT head noted Chest x-ray noted Troponin negative Hemoglobin A1c ISS and Accu-Cheks Ultrasound lower extremity Stool to rule out C diff Echo ordered Last echo done on 11/13/2023 EF 55% BNP Diuretics Strict I&Os Daily weight Diet DVT prophylaxis-not indicated patient ambulating PUD prophylaxis-H2 blockers Discussed plan of care with patient and nurse Plan discussed with: Patient Date of Service: Mar 01, 2025 Billing Provider: MELQUIADES TENA DO Common Visit Codes: [id number] INP/OBS CARE(HIGH) MELQUIADES TENA DO Mar 02, 2025 13:02
[2025-03-02 13:54] LABS: Alanine Aminotransferase 20 U/L (7-40); Albumin 3.8 g/dL (3.2-4.8); Anion Gap 7 (5-15); Aspartate Aminotransferase 18 U/L (<34); BUN/Creatinine Ratio 17.2 (10.0-20.0); Blood Urea Nitrogen 20 mg/dL (9-23); Calcium 10.1 mg/dL (8.7-10.4); Chloride 100 mmol/L (98-107); Sodium 141 mmol/L (136-145)
[2025-03-02 13:55] LABS: Bilirubin, Total 0.7 mg/dL (0.2-1.0)
[2025-03-02 13:59] LABS: Alkaline Phosphatase 39 U/L (46-116); Carbon Dioxide 34 mmol/L (20-31); Glucose 305 mg/dL (74-106); Total Protein 5.6 g/dL (5.7-8.2)
--- NOTE | 2025-03-02 15:42 | DVHPN2 ---
Reviewed: Care Plan, H&P, Labs, Medications, Previous Orders Changes from previous H/P or p: No Changes General: Per HPI Gastrointestinal: Diarrhea Musculoskeletal: other (Left lower extremity numbness) Objective Vitals Vital Signs Date Time Temp Pulse Resp B/P (MAP) Pulse Ox O2 Delivery O2 Flow Rate FiO2 03/02/25 13:08 98.5 62 20 101/34 (56) 96 98.5 03/02/25 08:00 Room Air* 0 21 Intake/Output Intake and Output 03/02/25 07:00 Intake Total 5680 ml Output Total 600 ml Balance 5080 ml Intake Oral 5680 ml Output Urine Total 600 ml # Voids 4 Medications Current Medications Medications Dose Ordered Sig/Rama Route Start Time Stop Time Status Last Admin Dose Admin Ondansetron HCl 4 mg Q4HP PRN IV 02/27/25 06:45 Acetaminophen 650 mg Q6HP PRN PO 02/27/25 06:45 03/02/25 07:27 650 MG Diagnostic Test (Pha) 1 strip ACHS 02/27/25 07:00 03/02/25 12:41 1 STRIP Insulin Human Regular ACHS SC 02/27/25 07:00 03/02/25 12:45 4 UNITS Dextrose 50 ml UD PRN IV 02/27/25 06:45 Carvedilol 12.5 mg BID PO 02/27/25 10:00 03/02/25 09:56 12.5 MG Lisinopril 20 mg DAILY PO 02/27/25 10:00 03/02/25 09:55 20 MG Patient Own Medication 100 mg DAILY PO 02/27/25 10:00 Cholecalciferol 2,000 unit BID PO 02/27/25 10:00 03/02/25 09:54 2,000 UNIT Atorvastatin Calcium 20 mg HS PO 02/27/25 22:00 03/01/25 22:45 20 MG Furosemide 40 mg DAILY IV 02/27/25 10:00 03/02/25 09:54 40 MG Hydralazine HCl 10 mg Q6HP PRN IV 02/27/25 17:30 Famotidine 20 mg BID PO 02/27/25 22:00 03/02/25 09:54 20 MG Lorazepam 1 mg ONCE PRN IV 03/01/25 00:15 03/01/25 07:43 1 MG Insulin Glargine 10 units DAILY@1000 SC 03/03/25 10:00 Laboratory Results Laboratory Tests 02/28/25 07:24 03/02/25 13:10 Chemistry Test 03/02/25 13:10 Albumin 3.8 g/dL (3.2-4.8) Calcium Level 10.1 mg/dL (8.7-10.4) Total Protein 5.6 g/dL (5.7-8.2) L LFT Test 03/02/25 13:10 Alanine Aminotransferase (ALT) 20 U/L (7-40) Alkaline Phosphatase 39 U/L (46-116) L Aspartate Amino Transferase (AST) 18 U/L (<34) Total Bilirubin 0.7 mg/dL (0.2-1.0) Urinalysis Test 02/26/25 23:26 Urine Color Yellow (Yellow) Urine Clarity Clear (Clear) Urine pH 5.0 (5.0-9.0) Urine Specific [place] 1.030 (1.001-1.035) Urine Protein Trace (Negative) H Urine Ketones Trace (Negative) Urine Blood Negative /uL (Negative) Urine Nitrite Negative (Negative) Urine Bilirubin Negative (Negative) Urine Urobilinogen Normal mg/dL (Negative) Urine Leukocyte Esterase Negative /uL (Negative) Urine RBC 1 /hpf (0 - 4) Urine Microscopic WBC 1 /HPF (0-5) Urine Squamous Epithelial Cells Few /hpf (<5) Urine Bacteria None seen /hpf (None Seen) Urine Hyaline Casts Few /lpf (0 - 2) Urine Mucus Few (None Seen) Urine Glucose 1+ mg/dL (Normal) H Assessment/Plan Assessment/Plan Milagros March is a 69-year-old female with past medical history of CAD, hypertension, hyperlipidemia, diabetes, CHF, cholecystectomy, hysterectomy, bladder surgery, and tonsillectomy who presents to the ED with left lower extremity numbness and loose stool x1 day. Patient reports that this morning when she woke up her left mora area was causing numbness. She also states that she had loose stool for 1 day brown in color. She denies any recent trauma or injury, chest pain, shortness of breath, fever, chills, recent recent sick contacts, recent ingestion of spoiled food, recent travels, abdominal pain, nausea vomiting, or urinary symptoms. When asked the patient what type of bladder surgery she states she does not recall it was over so many years ago. Hypertensive urgency Acute on chronic CHF exacerbation ANUJA Diabetes type 2 HFmEF, 55% History of CAD History of hypertension History of hyperlipidemia History of cholecystectomy History of hysterectomy History of bladder surgery History of tonsillectomy UA Antihypertensives CT head noted Chest x-ray noted Troponin negative Hemoglobin A1c ISS and Accu-Cheks Ultrasound lower extremity Stool to rule out C diff Echo ordered Last echo done on 11/13/2023 EF 55% BNP Diuretics Strict I&Os Daily weight Diet DVT prophylaxis-not indicated patient ambulating PUD prophylaxis-H2 blockers Discussed plan of care with patient and nurse My Orders Orders - MELQUIADES TENA DO Procedure Category Date Status Time Insulin Lantus PHA 03/03/25 In Process (Glargine) (Lantus) 10:00 * Surgical Consult CONS 03/02/25 Verified Date of Service: Mar 02, 2025 Billing Provider: MELQUIADES TENA DO Common Visit Codes: [id number] INP/OBS CARE(HIGH) MELQUIADES TENA DO Mar 02, 2025 15:42
[2025-03-03 01:00] VITALS: BP 94/57; PULSE 70; RESP 16; TEMP 98.4; O2SAT 94
[2025-03-03 05:00] VITALS: BP 101/48; PULSE 60; RESP 16; TEMP 98.2; O2SAT 100
[2025-03-03 08:00] VITALS: PULSE 67; RESP 17; O2SAT 99
[2025-03-03 08:54] VITALS: BP 118/67; PULSE 67; RESP 17; TEMP 98.2; O2SAT 99
[2025-03-03] MEDS: INSULIN LANTUS (GLARGINE) 1 /0.01ml (100units/ml) SC SCH (10:22)
--- NOTE | 2025-03-03 11:56 | DVHINCON2 ---
Consultation - Spinal Surgery Date Seen: Mar 03, 2025 Referring Physician Referring Physician Attending Doctor: David Pandey DO Reason for Consultation Reason for Visit: Left lower extremity numbness History of Present Illness History of Present Illness History of Present Illness Milagros March is a 69-year-old female with past medical history of CAD, hypertension, hyperlipidemia, diabetes, CHF, cholecystectomy, hysterectomy, bladder surgery, and tonsillectomy who presents to the ED with left lower extremity numbness and loose stool x1 day. Patient reports that this morning when she woke up her left mora area was causing numbness. She also states that she had loose stool for 1 day brown in color. She denies any recent trauma or injury, chest pain, shortness of breath, fever, chills, recent recent sick contacts, recent ingestion of spoiled food, recent travels, abdominal pain, nausea vomiting, or urinary symptoms. When asked the patient what type of bladder surgery she states she does not recall it was over so many years ago. Past Medical/Surgical History Past Medical/Surgical History Cardiovascular: CAD, CHF, HTN, hyperipidemia Endocrine: Diabetes Past Surgical History: Cholecystectomy, Hysterectomy, Other (Bladder surgery), Tonsillectomy Family and Social History Family and Social History Smoke: No ALCOHOL: none Drugs: None Lives: with Family Domestic Violence: Neg Allergies and medications Allergies: Coded Allergies: NO KNOWN ALLERGIES (Unverified , 09/10/14) Home Meds Active Scripts Lisinopril (Lisinopril) 5 Mg Tab, 20 MG PO DAILY for 30 Days, #120 TAB Prov:ARACELIS PATTERSON RESIDENT 11/13/24 Reported Medications Famotidine (Famotidine) 20 Mg Tab, 1 TAB PO BID 02/27/25 Ranolazine (Ranolazine ER) 500 Mg Tab, 1 TAB PO BID 02/27/25 Cholecalciferol (VITAMIN D3) 2,000 Unit Tab, 1 TAB PO BID, #30 TAB 5 Refills 07/29/24 Carvedilol (Carvedilol) 12.5 Mg Tab, 1 TAB PO BID 11/14/23 Acarbose (Acarbose) 100 Mg Tab, 100 MG PO DAILY, TAB 01/16/18 Simvastatin (Simvastatin) 40 Mg Tab, 1 TAB PO QPM, #90 TAB 1 Refill 11/10/14 Metformin Hydrochloride (Metformin Hcl) 500 Mg Tab, 500 MG PO TID for 30 Days, MG 11/10/14 Glipizide (Glipizide) 10 Mg Tab, 1 TAB PO BID 11/10/14 Review of systems Review of Systems: HEENT:Normal (Gastrointestinal: Diarrhea), CVS:Normal, RESP IRATORY:Normal, GI:Abnormal (Gastrointestinal: Diarrhea), :Normal, NEURO:Abnormal (Left lower extremity numbness)) Examination Vital signs imaging EXAM: MRI LUMBAR SPINE WO CONTRAST CLINICAL HISTORY: Radiculopathy COMPARISON: None TECHNIQUE: MRI imaging of the lumbar was performed on a MRI imaging system without intravenous contrast. FINDINGS: For the purposes of this examination, the last well-formed intervertebral disc space will be designated as L5-S1. By this convention, the conus medullaris terminates at the L1 level. There is minimal stepwise anterolisthesis of L4 and L5 and L5 on S1. Lumbar alignment is otherwise maintained. There is multi level disc desiccation with marginal osteophytes, with disc height loss most notable at L2. There is no fracture or subluxation. At the T12-L1 level, there is no evidence of central spinal canal or neuroforaminal stenosis. At the L1-L2 level, there is a broad based bilobed posterior disc bulge resulti ng in mild neuroforaminal narrowing. No significant spinal canal stenosis. At the L2-L3 level, small posterior disc bulge with mild facet arthrosis results in mild spinal canal stenosis. Mild bilateral neuroforaminal narrowing. At the L3-L4 level, there is a broad based posterior disc bulge with facet arthrosis which results in mild spinal canal narrowing and mild bilateral manuel roforaminal narrowing. At the L4-L5 level, there is a large broad based posterior disc protrusion, asymmetric left with ligamentum flavum infolding which results in moderate spinal canal narrowing and severe- obliterated left neuroforamina with compress ion of the exiting L4 nerve root. There is moderate right neuroforaminal narrowing. There is contact of the traversing L5 nerve roots. At the L5-S1 level, there is a annular tear with a small left paracentral disc extrusion on a background of a broad based disc bulge which results in compression of the traversing left S1 nerve root. There is severe left and mild right neuroforaminal narrowing. There is mild spinal canal stenosis. IMPRESSION: 1. Disc herniation with superimposed facet disease results in severe left neuroforaminal narrowing from L4-S1 with compression of the left L4,L5,S1 nerve roots as described above. Vital Signs Date Time Temp Pulse Resp B/P (MAP) Pulse Ox O2 Delivery O2 Flow Rate FiO2 03/03/25 10:09 118/67 03/03/25 10:09 67 03/03/25 08:54 98.2 17 99 98.2 03/03/25 08:00 Room Air* 0 21 Medications Current Medications Medications (Trade) Dose Ordered Sig/Rama Route PRN Reason Start Time Stop Time Status Last Admin Insulin Glargine (Lantus) 10 units DAILY@1000 SC 03/03/25 10:00 03/03/25 10:22 Laboratory Labs Test 03/03/25 10:07 03/02/25 13:10 02/28/25 07:24 02/27/25 07:27 Range/Units POC Glucose 266 H 70-106 mg/dl Sodium Level 141 136-145 mmol/L Potassium Level 4.0 3.5-5.1 mmol/L Chloride Level 100 98-107 mmol/L Carbon Dioxide Level 34 H 20-31 mmol/L Anion Gap 7 5-15 Blood Urea Nitrogen 20 9-23 mg/dL Creatinine 1.16 H 0.550-1.02 mg/dL Glomerular Filtration Rate Calc 51 >90 mL/min BUN/Creatinine Ratio 17.2 10.0-20.0 Serum Glucose 305 H 74-106 mg/dL Calcium Level 10.1 8.7-10.4 mg/dL Total Bilirubin 0.7 0.2-1.0 mg/dL Aspartate Amino Transferase (AST) 18 <34 U/L Alanine Aminotransferase (ALT) 20 7-40 U/L Alkaline Phosphatase 39 L 46-116 U/L Total Protein 5.6 L 5.7-8.2 g/dL Albumin 3.8 3.2-4.8 g/dL White Blood Count 7.4 4.4-10.8 10^3/uL Red Blood Count 3.97 L 4.0-5.20 10^6/uL Hemoglobin 12.2 12.2-16.2 g/dL Hematocrit 36.0 36.0-46.0 % Mean Corpuscular Volume 90.6 80.0-100.0 fL Mean Corpuscular Hemoglobin 30.7 28.0-32.0 pg Mean Corpuscular Hemoglobin Concent 33.9 32.0-36.0 g/dL Red Cell Distribution Width 13.3 11.8-14.3 % Platelet Count 190 140-450 10^3/uL Mean Platelet Volume 7.9 6.9-10.8 fL Neutrophils (%) (Auto) 58.3 37.0-80.0 % Lymphocytes (%) (Auto) 29.6 10.0-50.0 % Monocytes (%) (Auto) 10.1 0.0-12.0 % Eosinophils (%) (Auto) 1.7 0.0-7.0 % Basophils (%) (Auto) 0.3 0.0-2.0 % Neutrophils # (Auto) 4.3 1.6-8.6 10 ^3/uL Lymphocytes # (Auto) 2.2 0.4-5.4 10 ^3/uL Monocytes # (Auto) 0.7 0-1.3 10 ^3/uL Eosinophils # (Auto) 0.1 0-0.8 10 ^3/uL Basophils # (Auto) 0 0-0.2 10 ^3/uL Nucleated Red Blood Cells 0.1 % Hemoglobin A1c 6.6 H <5.7 % A1C B-Type Natriuretic Peptide 31.12 0-100 pg/mL Test 02/26/25 23:37 02/26/25 23:26 Range/Units Troponin I High Sensitivity 7 </=34 ng/L Urine Color Yellow Yellow Urine Clarity Clear Clear Urine pH 5.0 5.0-9.0 Urine Specific [place] 1.030 1.001-1.035 Urine Protein Trace H Negative Urine Ketones Trace Negative Urine Blood Negative Negative /uL Urine Nitrite Negative Negative Urine Bilirubin Negative Negative Urine Urobilinogen Normal Negative mg/dL Urine Leukocyte Esterase Negative Negative /uL Urine RBC 1 0 - 4 /hpf Urine Microscopic WBC 1 0-5 /HPF Urine Squamous Epithelial Cells Few <5 /hpf Urine Bacteria None seen None Seen /hpf Urine Hyaline Casts Few 0 - 2 /lpf Urine Mucus Few None Seen Urine Glucose 1+ H Normal mg/dL Examination: GENERAL:Normal, HEENT:Normal, NECK:Normal, LUNGS:Normal, CVS:Normal, ABDOMEN:Normal, MSK:Normal (Move all extremities), SKIN:Normal (5/5) , NEURO:Abnormal (Left lower extremity numbness, patient states she has no back pain has never had back pain. She has had no procedures no pain management no physical therapy no history of injury no history of surgery), :Normal Problem List/Assessment/Plan Problems: (1) Herniated lumbar intervertebral disc (2) Lumbar stenosis with neurogenic claudication Assessment and Plan Disc herniation with superimposed facet disease results in severe left neuroforaminal narrowing from L4-S1 with compression of the left L4,L5,S1 nerve roots Patient does not want any intervention at this time Patient would like to follow up with her PCP and if she wishes to pursue treatment at a later date she will do so Continue care per admitting team's discretion Physical therapy evaluation treatment recommendations discharge planning Outpatient follow up, patient to see PCP for spine referral later time Call [phone] for a appointment [id number] [place] [address], [place] [phone] Call with questions Lucie Adler [facility] Orthopaedic Spine Surgery nurse practitioner For Dr Zenon Fernandes Patient was examined, chart reviewed, labs evaluated, and diagnostic studies and findings analyzed. Case was discussed with Dr. Camilo Fernandes who formulated the plan of care. This medical document was created using an electronic medical record system with [employer] dictation system. Although this document has been carefully reviewed, there might still be some phonetic and typographical errors. These areas are purely typographical due to imperfections of the software programs, and do not reflect any compromise in the patient's medical care. Plan discussed with Plan discussed with: Patient, Other (Susy x [phone]) LUCY ADLER [employer] Mar 03, 2025 11:56
[2025-03-03 13:00] VITALS: BP 97/64; PULSE 59; RESP 17; TEMP 98; O2SAT 98
--- NOTE | 2025-03-03 14:39 | DVHDS2 ---
Discharge Summary Date of Admission Feb 27, 2025 at 07:06 Date of Discharge: Mar 03, 2025 Labs/Diagnostic Data: Laboratory Results Test 03/03/25 11:57 03/02/25 13:10 02/28/25 07:24 02/27/25 07:27 POC Glucose 266 mg/dl (70-106) Sodium Level 141 mmol/L (136-145) Potassium Level 4.0 mmol/L (3.5-5.1) Chloride Level 100 mmol/L (98-107) Carbon Dioxide Level 34 mmol/L (20-31) Anion Gap 7 (5-15) Blood Urea Nitrogen 20 mg/dL (9-23) Creatinine 1.16 mg/dL (0.550-1.02) Glomerular Filtration Rate Calc 51 mL/min (>90) BUN/Creatinine Ratio 17.2 (10.0-20.0) Serum Glucose 305 mg/dL (74-106) Calcium Level 10.1 mg/dL (8.7-10.4) Total Bilirubin 0.7 mg/dL (0.2-1.0) Aspartate Amino Transferase (AST) 18 U/L (<34) Alanine Aminotransferase (ALT) 20 U/L (7-40) Alkaline Phosphatase 39 U/L (46-116) Total Protein 5.6 g/dL (5.7-8.2) Albumin 3.8 g/dL (3.2-4.8) White Blood Count 7.4 10^3/uL (4.4-10.8) Red Blood Count 3.97 10^6/uL (4.0-5.20) Hemoglobin 12.2 g/dL (12.2-16.2) Hematocrit 36.0 % (36.0-46.0) Mean Corpuscular Volume 90.6 fL (80.0-100.0) Mean Corpuscular Hemoglobin 30.7 pg (28.0-32.0) Mean Corpuscular Hemoglobin Concent 33.9 g/dL (32.0-36.0) Red Cell Distribution Width 13.3 % (11.8-14.3) Platelet Count 190 10^3/uL (140-450) Mean Platelet Volume 7.9 fL (6.9-10.8) Neutrophils (%) (Auto) 58.3 % (37.0-80.0) Lymphocytes (%) (Auto) 29.6 % (10.0-50.0) Monocytes (%) (Auto) 10.1 % (0.0-12.0) Eosinophils (%) (Auto) 1.7 % (0.0-7.0) Basophils (%) (Auto) 0.3 % (0.0-2.0) Neutrophils # (Auto) 4.3 10 ^3/uL (1.6-8.6) Lymphocytes # (Auto) 2.2 10 ^3/uL (0.4-5.4) Monocytes # (Auto) 0.7 10 ^3/uL (0-1.3) Eosinophils # (Auto) 0.1 10 ^3/uL (0-0.8) Basophils # (Auto) 0 10 ^3/uL (0-0.2) Nucleated Red Blood Cells 0.1 % Hemoglobin A1c 6.6 % A1C (<5.7) B-Type Natriuretic Peptide 31.12 pg/mL (0-100) Test 02/26/25 23:37 02/26/25 23:26 Troponin I High Sensitivity 7 ng/L (</=34) Urine Color Yellow (Yellow) Urine Clarity Clear (Clear) Urine pH 5.0 (5.0-9.0) Urine Specific [place] 1.030 (1.001-1.035) Urine Protein Trace (Negative) Urine Ketones Trace (Negative) Urine Blood Negative /uL (Negative) Urine Nitrite Negative (Negative) Urine Bilirubin Negative (Negative) Urine Urobilinogen Normal mg/dL (Negative) Urine Leukocyte Esterase Negative /uL (Negative) Urine RBC 1 /hpf (0 - 4) Urine Microscopic WBC 1 /HPF (0-5) Urine Squamous Epithelial Cells Few /hpf (<5) Urine Bacteria None seen /hpf (None Seen) Urine Hyaline Casts Few /lpf (0 - 2) Urine Mucus Few (None Seen) Urine Glucose 1+ mg/dL (Normal) Other Laboratory Tests 03/02/25 13:10 02/28/25 07:24 Condition at Discharge: Fair Discharge Disposition: Home Discharge Instruct/Medications Diet: Cardiac 2g Na,low cholest Activity: No Restrictions, As Tolerated Discharge Statement: "Patient was advised to return to the ER or call 911 if any headaches, dizziness, shortness of breath, chest pain, abdominal pain, bleeding, fevers, or worsening of medical condition. Patient was counseled about treatment plan, medications, possible side effects, patientverbalized understanding. All questions were answered to the best of my ability. This discharge took greater then 30 minutes in planning, reviewing documentation, counseling the patient, and discussing with other team members." ASSESSMENT ASSESSMENT Assessment MELQUIADES TENA DO Mar 03, 2025 14:39
[2025-03-03 17:00] VITALS: BP 113/59; PULSE 59; RESP 16; TEMP 97.5; O2SAT 98
== END 2025-03-03 16:40 | disposition home or self-care (01) | DRG 551 ==
LOC: ER 22:50 → OVERFLOW 02-27 07:06 → WEST WING 02-27 07:08
PROVIDERS: ADMIT Internal Medicine; ATTEND Internal Medicine
DX: M48.062 Spinal stenosis, lumbar region with neurogenic claudication (principal); I50.33 Acute on chronic diastolic (congestive) heart failure; N17.9 Acute kidney failure, unspecified; I16.0 Hypertensive urgency; I11.0 Hypertensive heart disease with heart failure; E11.9 Type 2 diabetes mellitus without complications; E78.5 Hyperlipidemia, unspecified; I25.10 Atherosclerotic heart disease of native coronary artery without angina pectoris; H81.13 Benign paroxysmal vertigo, bilateral; E66.9 Obesity, unspecified; M51.16 Intervertebral disc disorders with radiculopathy, lumbar region; Z79.84 Long term (current) use of oral hypoglycemic drugs; Z79.899 Other long term (current) drug therapy; Z90.710 Acquired absence of both cervix and uterus; Z90.49 Acquired absence of other specified parts of digestive tract; Z83.3 Family history of diabetes mellitus; Z82.49 Family history of ischemic heart disease and other diseases of the circulatory system; I25.2 Old myocardial infarction; Z68.38 Body mass index [BMI] 38.0-38.9, adult
CPT/HCPCS: 36415; 70450; 71045; 72148; 80048; 80053; 81001; 82962; 83036; 83880; 84484; 85025; 93306; 96374; 99291; G0378; J1815

== ENCOUNTER 2025-03-08 18:05 | Inpatient (IN) | payer OTHER, MEDICAID ==
[~2025-03-08] VITALS: Ht 167.6 cm; Wt 115.7 kg
[~2025-03-08 18:05] MED LIST changes: -CLON0.1T PO; +FAMO-12 PO; -FURO20TA3 PO; +RANO500T3 PO
[2025-03-08] MEDS ORDERED: SODIUM CHLORIDE 0.9% 2,000 ML IV ONE (18:15)
--- NOTE | 2025-03-08 18:27 | ED.PDOC ---
GI ASSESSMENT HPI Comments 69 year old female with a history of hypertension, diabetes, CAD, CHF, IA and lumbar spinal stenosis brought in by EMS from home complaining of diarrhea for the last 2 days. Patient was discharged from our facility 5 days ago and diagnoses of (1) Herniated lumbar intervertebral disc, (2) Lumbar stenosis with neurogenic claudication. Patient refused surgical intervention at that time, to pursue at a later date. Patient states she developed dry diarrhea 2 days ago and noted dark blood in her stool. Patient states she is still having diarrhea however there was no blood. She denies any abdominal pain, nausea, vomiting or urinary symptoms, but is complaining of generalized weakness and feeling dehydrated. Chief Complaint: Diarrhea Time Seen by MD: 18:24 Primary Care Provider: DYLAN Coon Notes: Technical Sales Advisor Notes Allergies: Coded Allergies: NO KNOWN ALLERGIES (Unverified , 09/10/14) Home Meds Active Scripts Lisinopril (Lisinopril) 5 Mg Tab, 20 MG PO DAILY for 30 Days, #120 TAB Prov:ARACELIS PATTERSON RESIDENT 11/13/24 Reported Medications Famotidine (Famotidine) 20 Mg Tab, 1 TAB PO BID 02/27/25 Ranolazine (Ranolazine ER) 500 Mg Tab, 1 TAB PO BID 02/27/25 Cholecalciferol (VITAMIN D3) 2,000 Unit Tab, 1 TAB PO BID, #30 TAB 5 Refills 07/29/24 Carvedilol (Carvedilol) 12.5 Mg Tab, 1 TAB PO BID 11/14/23 Acarbose (Acarbose) 100 Mg Tab, 100 MG PO DAILY, TAB 01/16/18 Simvastatin (Simvastatin) 40 Mg Tab, 1 TAB PO QPM, #90 TAB 1 Refill 11/10/14 Metformin Hydrochloride (Metformin Hcl) 500 Mg Tab, 500 MG PO TID for 30 Days, MG 11/10/14 Glipizide (Glipizide) 10 Mg Tab, 1 TAB PO BID 11/10/14 Information Source: Patient, Emergency Med Personnel Mode of Arrival: Ambulatory Timing: Days Duration: Intermittent Quality: None Vomitus: None Stool: Blood Streaked, Loose, Watery Severity: Moderate Recent: Antibiotics Recent Hx of: Abdominal Operations, Diabetes Pain Location: None Associated sign and symptoms: Diarrhea, Blood in Stool Past Medical History PAST MEDICAL HISTORY: Angina, Arthritis, CAD, CHF, DM, HTN, IA Past Medical History (Other): Spinal stenosis Surgical History: Cholecystectomy, Hysterectomy, Tonsillectomy Surgical History (Other): bladder surgery ENVIRONMENTAL INSPECTOR History: Denies all ENVIRONMENTAL INSPECTOR Hx Family History Family History: Reviewed,noncontributory to illness Social History Smoker: Non-Smoker Alcohol: Denies ETOH Use Drugs: Denies Drug Use Lives In: Home Constitutional: reports: fatigue, weakness; denies: chills, diaphoresis, fever, malaise, sweats, others EENTM: denies: blurred vision, double vision, ear bleeding, ear discharge, ear drainage, ear pain, ear ringing, eye pain, eye redness, hearing loss, mouth pain, mouth swelling, nasal discharge, nose bleeding, nose congestion, nose pain, photophobia, tearing, throat pain, throat swelling, voice changes, others Respiratory: denies: cough, hemoptysis, orthopnea, SOB at rest, shortness of breath, SOB with excertion, stridor, wheezing, others Cardiovascular: denies: chest pain, dizzy spells, diaphoresis, Dyspnea on exertion, edema, irregular heart beat, left arm pain, lightheadedness, palpitations, PND, syncope, others Gastrointestinal: reports: blood streaked bowels, diarrhea; denies: abdomen distended, abdominal pain, constipated, dysphagia, difficulty swallowing, hemat emesis, melena, nausea, poor appetite, poor fluid intake, rectal bleeding, rectal pain, vomiting, others Genitourinary: denies: abnormal vagina bleeding, burning, dyspareunia, dysuria, flank pain, frequency, hematuria, incontinence, pain, , vagina discharge, urgency, others Neurological: denies: dizziness, fainting, headache, left sided numbness, left sided weakness, numbness, paresthesia, pre-existing deficit, right sided numbness, right sided weakness, seizure, speech problems, tingling, tremors, weakness, others Musculoskeletal: denies: back pain, gout, joint pain, joint swelling, muscle pain, muscle stiffness, neck pain, others Integumetry: denies: bruises, change in color, change in hair/nails, dryness, laceration, lesions, lumps, rash, wounds, others Allergic/Immunocompromised: denies: Difficulty Healing, Frequent Infections, Hives, Itching, others Hematologic/Lymphatic: denies: anemia, blood clots, easy bleeding, easy bruising, swollen glands, others Endocrine: denies: excessive hunger, excessive sweating, excessive thirst, excessive urination, flushing, intolerance to cold, intolerance to heat, unexplained weight gain, unexplained weight loss, others Psychiatric: denies: anxiety, bipolar disorder, depression, hopeless, panic disorder, schizophrenia, sleepless, suicidal, others Physical Exam General Appearance: No Apparent Distress, Obese HEENT: Other (Pupils and face symmetric. Moist mucous membranes.) Neck: Full Range of Motion, Normal Inspection Respiratory: Lungs Clear, No Accessory Muscle Use, No Respiratory Distress, Normal Breath Sounds Cardiovascular: No JVD, Regular Rate/Rhythm Breast Exam: Deferred Gastrointestinal: Non Tender, Soft Genitalia: Deferred Pelvic: Deferred Rectal: Deferred Extremities: Leg edema, Normal range of motion, Pedal edema Neurologic: Alert (Oriented x4), Normal Affect, Normal Mood, Other (Ambulatory) Cerebellar Function: NOT DONE Reflexes: NOT DONE Skin: Dry, Normal Color, Warm Lymphatic: NOT DONE EKG EKG : Comments Sinus rhythm, rate 68, normal intervals, left axis deviation, possible old inferior infarct, nonspecific T change. Was a procedure done? Was a procedure done?: No GI differential Dx Differential Diagnosis: Diverticular disease, Gastritis/PUD, Gastroenteritis, GI hemorrhage, Inflammatory BD, Ischemic Bowel, UTI, Urolithiasis, Dehydration, Electrolyte Imbalance, Food Poisoning, Bacterial, Viral, Anemia Other Differential Diagnosis Colitis, including C diff X-Ray, Labs, Meds, VS Vital Signs Date Time Temp Pulse Resp B/P (MAP) Pulse Ox O2 Delivery O2 Flow Rate FiO2 03/08/25 20:23 64 163/77 03/08/25 19:33 64 Room Air* 0 21 03/08/25 19:33 97.0 64 12 174/85 (114) 100 97.0 03/08/25 18:53 97.8 60 19 151/56 (87) 99 97.8 03/08/25 18:13 97.8 67 16 154/90 (111) 98 97.8 03/08/25 18:07 68 Lab Test 03/08/25 19:00 Range/Units White Blood Count 6.5 4.4-10.8 10^3/uL Red Blood Count 4.06 4.0-5.20 10^6/uL Hemoglobin 12.5 12.2-16.2 g/dL Hematocrit 37.1 36.0-46.0 % Mean Corpuscular Volume 91.2 80.0-100.0 fL Mean Corpuscular Hemoglobin 30.8 28.0-32.0 pg Mean Corpuscular Hemoglobin Concent 33.8 32.0-36.0 g/dL Red Cell Distribution Width 13.4 11.8-14.3 % Platelet Count 202 140-450 10^3/uL Mean Platelet Volume 8.0 6.9-10.8 fL Neutrophils (%) (Auto) 64.5 37.0-80.0 % Lymphocytes (%) (Auto) 23.9 10.0-50.0 % Monocytes (%) (Auto) 9.5 0.0-12.0 % Eosinophils (%) (Auto) 1.6 0.0-7.0 % Basophils (%) (Auto) 0.5 0.0-2.0 % Neutrophils # (Auto) 4.2 1.6-8.6 10 ^3/uL Lymphocytes # (Auto) 1.5 0.4-5.4 10 ^3/uL Monocytes # (Auto) 0.6 0-1.3 10 ^3/uL Eosinophils # (Auto) 0.1 0-0.8 10 ^3/uL Basophils # (Auto) 0 0-0.2 10 ^3/uL Nucleated Red Blood Cells 0.1 % Sodium Level 143 136-145 mmol/L Potassium Level 3.9 3.5-5.1 mmol/L Chloride Level 104 98-107 mmol/L Carbon Dioxide Level 28 20-31 mmol/L Anion Gap 11 5-15 Blood Urea Nitrogen 21 9-23 mg/dL Creatinine 1.24 H 0.550-1.02 mg/dL Glomerular Filtration Rate Calc 47 >90 mL/min BUN/Creatinine Ratio 16.9 10.0-20.0 Serum Glucose 162 H 74-106 mg/dL Lactic Acid Level 3.0 *H 0.4-2.0 mmol/L Calcium Level 9.8 8.7-10.4 mg/dL Total Bilirubin 0.4 0.2-1.0 mg/dL Aspartate Amino Transferase (AST) 29 13-40 U/L Alanine Aminotransferase (ALT) 21 7-40 U/L Alkaline Phosphatase 41 L 46-116 U/L Total Protein 6.0 5.7-8.2 g/dL Albumin 3.9 3.2-4.8 g/dL Current Medications Medications (Trade) Dose Ordered Sig/Rama Route Start Time Stop Time Status Last Admin Loperamide HCl (Imodium Capsule) 4 mg ONCE ONCE PO 03/08/25 18:15 03/08/25 18:16 DC 03/08/25 18:28 Levofloxacin/ Dextrose 100 ml @ 100 mls/hr ONCE ONCE IV 03/08/25 18:15 03/08/25 19:14 DC 03/08/25 19:26 Metronidazole 100 ml @ 100 mls/hr ONCE ONCE IV 03/08/25 18:15 03/08/25 19:14 DC 03/08/25 18:29 Pantoprazole Sodium (Protonix) 40 mg ONCE ONCE IV 03/08/25 18:15 03/08/25 18:16 DC 03/08/25 18:28 Sodium Chloride 500 ml @ 500 mls/hr Q1H ONCE IV 03/08/25 18:30 03/08/25 19:29 DC 03/08/25 18:29 Carvedilol (Coreg Tablet) 12.5 mg ONCE ONCE PO 03/08/25 20:15 03/08/25 20:16 DC 03/08/25 20:23 PROCEDURE(s): ABPL - CT AB PEL WO CON-NO ORAL OR IV REASON: bloody diarrhea ORDER NUMBER(s): [id number], ACCESSION NUMBER(s): [id number] Exam: CT CT AB PEL WO CON-NO ORAL OR IV History: bloody diarrhea Comparison Study: None TECHNIQUE: Multidetector CT of the abdomen and pelvis was performed from lung bases to pubic symphysis. Imaging was performed without IV contrast. Axial, coronal, and sagittal multiplanar reformats were obtained from the axial data set by the technologist. RADIATION DOSE: DLP 1054.24 mGy.cm; CTDI vol 19.49 mGy. Findings: Lungs: Scattered micro nodules. The lung bases are otherwise clear. Heart: No cardiomegaly or pericardial effusion. Liver: Unremarkable. Gallbladder: Cholecystectomy. Spleen: Unremarkable Pancreas: Unremarkable Adrenals: Unremarkable Kidneys: Unremarkable GI tract: Scattered diverticulosis without evidence of acute diverticulitis. : Unremarkable. Vasculature: Unremarkable Lymphadenopathy: Absent Peritoneum: No ascites Musculoskeletal: Moderate multilevel degenerative changes of the thoracolumbar spine Soft tissues: Unremarkable Impression: 1. No acute abdominopelvic abnormalities. 2. Scattered diverticulosis without evidence of acute diverticulitis. X-Ray, Labs, Meds, VS Comment 69 year old female with a history of hypertension, diabetes, CAD, CHF, IA and lumbar spinal stenosis complaining of bloody diarrhea and generalized weakness after a recent hospitalization here Vitals remarkable for BP 154/90 Exam unremarkable Rhythm strip independently interpreted by me: Sinus rhythm, rate 68, no ectopy. CT abdomen and pelvis Impression: 1. No acute abdominopelvic abnormalities. 2. Scattered diverticulosis without evidence of acute diverticulitis. CBC normal, CMP remarkable for creatinine 1.24, lactic 3 Patient treated with the following in the ED: Levaquin 500 mg IV, Flagyl 100 mg IV, 0.9 normal saline 500 mL IV bolus, Protonix 40 mg IV, Imodium 4 mg p.o. On re-evaluation, patient is resting comfortably with stable vitals. Plan is to admit the patient for IV antibiotics, gentle rehydration and GI eval uation Time of 1ST Reevaluation: 18:25 Reevaluation 1ST: Unchanged Patient Education/Counseling: Diagnosis, Treatment Family Education/Counseling: No Family Present SEPSIS Sepsis Screen Date sepsis recognized/suspect: Mar 08, 2025 Time Sepsis recognized/suspect: 1809 Recent Procedure: No On Antibiotic Therapy: No Respiratory Rate >20: No Heart Rate >90: No Temp<36 C (96.8 F) or >38.3 C: No SBP <90 or MAP <65 mmHG: No New Acute Mental Status Change: No Is the patient on CPAP, BIPAP,: No Physician Orders Urinalysis (03/08/25 18:12) Ct Ab Pel Wo Con-No Oral Or Iv (03/08/25 18:12) Blood Culture (03/08/25 18:12) Clostridium Difficile Toxin (03/08/25 19:16) Vital Signs Date Time Temp Pulse Resp B/P (MAP) Pulse Ox O2 Delivery O2 Flow Rate FiO2 03/08/25 20:23 64 163/77 03/08/25 19:33 64 Room Air* 0 21 03/08/25 19:33 97.0 64 12 174/85 (114) 100 97.0 03/08/25 18:53 97.8 60 19 151/56 (87) 99 97.8 03/08/25 18:13 97.8 67 16 154/90 (111) 98 97.8 03/08/25 18:07 68 Laboratory Tests Test 03/08/25 19:00 Lactic Acid Level 3.0 mmol/L (0.4-2.0) *H White Blood Count 6.5 10^3/uL (4.4-10.8) Medications Medications Dose Ordered Sig/Rama Route Start Time Stop Time Status Last Admin Dose Admin Carvedilol 12.5 mg ONCE ONCE PO 03/08/25 20:15 03/08/25 20:16 DC 03/08/25 20:23 Levofloxacin/ Dextrose 100 ml @ 100 mls/hr ONCE ONCE IV 03/08/25 18:15 03/08/25 19:14 DC 03/08/25 19:26 Loperamide HCl 4 mg ONCE ONCE PO 03/08/25 18:15 03/08/25 18:16 DC 03/08/25 18:28 Metronidazole 100 ml @ 100 mls/hr ONCE ONCE IV 03/08/25 18:15 03/08/25 19:14 DC 03/08/25 18:29 Pantoprazole Sodium 40 mg ONCE ONCE IV 03/08/25 18:15 03/08/25 18:16 DC 03/08/25 18:28 Sodium Chloride 500 ml @ 500 mls/hr Q1H ONCE IV 03/08/25 18:30 03/08/25 19:29 DC 03/08/25 18:29 Reassessment Post Fluid SEPSIS FOCUS EXAM(REASSESSMENT Sepsis Exclusion Note: Patient presents with SIRS criteria, but the SIRS response is attributed to [dehydration ]. Sepsis bundle is not initiated at this time, due to this reason. Further management will focus on the treatment of the above condition (s). Departure 1 Departure Time of Disposition: 19:20 Impression: Primary Impression: Diarrhea Additional Impressions: Generalized weakness Elevated lactic acid level GI bleeding Dehydration Disposition: ADMITTED INPATIENT Admit to: Med Surg Condition: Guarded Critical Care Note Critical Care Time?: No Stability Stability form required: No Heart Score Heart Score: Heart Score Response (Comments) Value History N/A 0 EKG N/A 0 Age N/A 0 Risk Factors N/A 0 Troponin N/A 0 Total 0 I personally scribed for ALMA MCKEON MD ([email or web address]) on 03/08/25 at 18:26. Electronically submitted by Michael Gonzalez ([facility]). I personally scribed for ALMA MCKEON MD ([email or web address]) on 03/08/25 at 20:00. Electronically submitted by Michael Gonzalez ([facility]). ALMA MCKEON MD Mar 08, 2025 18:26
[2025-03-08] MEDS: LOPERAMIDE HCL 2 MG CAP/TAB PO ONE (18:28)
[2025-03-08] MEDS: PANTOPRAZOLE 40 MG/10 ML VIAL INJ IV ONE (18:28)
[2025-03-08] MEDS: SODIUM CHLORIDE 0.9% 500 ML IV ONE ×2 (18:29→23:00)
--- NOTE | 2025-03-08 18:54 | ECG ---
[facility] Test Date: 2025-03-08 Test Time: 18:07:33 Pat Name: BLANCA MEEHAN Department: ED Room: Gender: F Mailroom Messenger: cierra : [phone] Requested By: ALMA OSORIO Order Number: [id number] Reading MD: Measurements Intervals [place] Rate: 68 P: 4 [place]: 173 QRS: -38 QRSD: 101 T: 2 QT: 423 QTc: 450 Interpretive Statements Sinus rhythm Inferior infarct, old Consider anterior infarct Please click the below link to view image of tracing.
[2025-03-08 19:26] LABS: Hematocrit 37.1 % (36.0-46.0); Hemoglobin 12.5 g/dL (12.2-16.2); Mean Corpuscular Hemoglobin 30.8 pg (28.0-32.0); Mean Corpuscular Volume 91.2 fL (80.0-100.0); Nucleated Red Blood Cells % 0.1 %
[2025-03-08 19:33] VITALS: PULSE 64
--- NOTE | 2025-03-08 19:43 | DVH ---
Exam: CT CT AB PEL WO CON-NO ORAL OR IV History: bloody diarrhea Comparison Study: None TECHNIQUE: Multidetector CT of the abdomen and pelvis was performed from lung bases to pubic symphysi s. Imaging was performed without IV contrast. Axial, coronal, and sagittal multiplanar reformats were obtained from the axial data set by the technologist. RADIATION DOSE: DLP 1054.24 mGy.cm; CTDI vol 19.49 mGy. Findings: Lungs: Scattered micro nodules. The lung bases are otherwise clear. Heart: No cardiomegaly or pericardial effusion. Liver: Unremarkable. Gallbladder: Cholecystectomy. Spleen: Unremarkable Pancreas: Unremarkable Adrenals: Unremarkable Kidneys: Unremarkable GI tract: Scattered diverticulosis without evidence of acute diverticulitis. : Unremarkable. Vasculature: Unremarkable Lymphadenopathy: Absent Peritoneum: No ascites Musculoskeletal: Moderate multilevel degenerative changes of the thoracolumbar spine Soft tissues: Unremarkable Impression: 1. No acute abdominopelvic abnormalities. 2. Scattered diverticulosis without evidence of acute diverticulitis.
[2025-03-08 19:44] LABS: Alanine Aminotransferase 21 U/L (7-40); Albumin 3.9 g/dL (3.2-4.8); Anion Gap 11 (5-15); BUN/Creatinine Ratio 16.9 (10.0-20.0); Bilirubin, Total 0.4 mg/dL (0.2-1.0); Blood Urea Nitrogen 21 mg/dL (9-23); Calcium 9.8 mg/dL (8.7-10.4); Carbon Dioxide 28 mmol/L (20-31); Chloride 104 mmol/L (98-107); Potassium 3.9 mmol/L (3.5-5.1); Sodium 143 mmol/L (136-145); Total Protein 6.0 g/dL (5.7-8.2)
[2025-03-08 19:46] LABS: Alkaline Phosphatase 41 U/L (46-116); Glucose 162 mg/dL (74-106)
[2025-03-08 19:47] LABS: Lactic Acid w/Reflex 3.0 mmol/L (0.4-2.0)
[2025-03-08] MEDS: CARVEDILOL 12.5 MG TAB PO ONE (20:23)
[2025-03-08 22:11] LABS: Urine Protein, UAD Negative (Negative)
[2025-03-08] MEDS ORDERED: ONDANSETRON HCL 4 MG/2 ML VIAL IV PRN (22:15)
[2025-03-08] MEDS ORDERED: MORPHINE SULFATE INJ 2 MG/ml SYRG IV PRN (22:15)
[2025-03-08] MEDS ORDERED: NITROGLYCERIN 0.4 MG SL TAB SL PRN (22:15)
[2025-03-08] MEDS: SODIUM CHLORIDE 0.9% 1,000 ML IV SCH (22:17)
[2025-03-08 23:34] VITALS: BP 137/79; PULSE 52; RESP 17; TEMP 96.1; O2SAT 100
[2025-03-09] VITALS (8 sets, daily range): BP systolic 120–141; BP diastolic 62–84; PULSE 52–67; RESP 17–20; TEMP 96.1–98.7; O2SAT 99–100
--- NOTE | 2025-03-09 00:07 | DVHHPRES ---
History of Present Illness Resident Creating Document: RAS DOZIER RESIDENT History of Present Illness Milagros March is a 69-year-old female with PPMH of CAD, HTN, HLD, type 2 DM, CHF, cholecystectomy, hysterectomy, bladder surgery, and tonsillectomy who presents to the ED with the chief complaints of having change in bowel movements since 2 days prior to admission. Patient reported that she has been recently discharged from this facility after being treated for back pain. for past 2 days patient started having loose stools yellowish to dark in color associated with a mild nausea , generalized weakness and feeling dehydrated but no vomiting. Patient denies travel, sick contacts, change in food, recent antibiotic use. On my assessment patient denies abdominal pain, vomiting, urinary symptoms, dizziness and other acute associated symptoms. PMH: CAD, HTN, HLD, type 2 DM, CHF , GERD PSH: Cholecystectomy, hysterectomy, bladder surgery, tonsillectomy Family history: Noncontributory Social history: Lives with the family at home. Denies smoking, alcohol and other drug abuse Allergies: No known allergies Home medications: Enalapril 10 mg, acarbose 100 mg, carvedilol 12.5 mg, furosemide 20 mg, metformin 500 mg, glipizide 10 mg, famotidine 20 mg, simvastatin 40 mg, vitamin D3, ranolazine Review of Systems Review of Systems Patient seen and examined at the bedside. ROS as described above but reported that her diarrhea has been improved and rest of ROS is negative Allergies: Coded Allergies: NO KNOWN ALLERGIES (Unverified , 09/10/14) Medications Current Medications Medications Dose Ordered Sig/Rama Route Start Time Stop Time Status Last Admin Dose Admin Sodium Chloride 1,000 ml @ 60 mls/hr [id number] IV 03/08/25 22:15 03/08/25 22:17 60 MLS/HR Ondansetron HCl 4 mg Q4HP PRN IV 03/08/25 22:15 Enoxaparin Sodium 40 mg DAILY SC 03/09/25 10:00 Acetaminophen 650 mg Q6HP PRN PO 03/08/25 22:15 Nitroglycerin 0.4 mg Q5MINP PRN SL 03/08/25 22:15 Morphine Sulfate 2 mg Q30M PRN IV 03/08/25 22:15 Pantoprazole Sodium 40 mg DAILY IV 03/09/25 10:00 UNV Exam Vital Signs Vital Signs Date Time Temp Pulse Resp B/P (MAP) Pulse Ox O2 Delivery O2 Flow Rate FiO2 03/08/25 23:00 97.3 61 14 144/44 (77) 98 97.3 03/08/25 19:33 Room Air* 0 21 Exam Pt is lying on bed General Appearance: Alert, Oriented X3, Cooperative, Not in acute distress HEENT: Atraumatic, Mucous membranes dry Respiratory: Clear to auscultation, Normal air movement, No added sounds Cardiovascular: Regular rate, Normal S1, Normal S2, No murmurs Abdominal: Active bowel sounds, Soft, no distention, no tenderness Extremities: Very minimal edema, Normal pulses, No tenderness/swelling Skin: No Significant rash, except past surgical scars Neuro: Normal speech, sensorimotor deficits none Psych/Mental Status: Mental status NL, Mood NL Nurse was there as forgeman helper during examination Labs/Xrays Labs Test 03/08/25 21:35 03/08/25 21:04 03/08/25 19:00 Range/Units Urine Color Yellow Yellow Urine Clarity Clear Clear Urine pH 5.0 5.0-9.0 Urine Specific [place] 1.021 1.001-1.035 Urine Protein Negative Negative Urine Ketones Negative Negative Urine Blood Negative Negative /uL Urine Nitrite Negative Negative Urine Bilirubin Negative Negative Urine Urobilinogen Normal Negative mg/dL Urine Leukocyte Esterase Negative Negative /uL Urine RBC 1 0 - 4 /hpf Urine Microscopic WBC 1 0-5 /HPF Urine Squamous Epithelial Cells Few <5 /hpf Urine Bacteria None seen None Seen /hpf Urine Hyaline Casts Few 0 - 2 /lpf Urine Mucus Few None Seen Urine Glucose 1+ H Normal mg/dL Lactic Acid Level 1.6 0.4-2.0 mmol/L White Blood Count 6.5 4.4-10.8 10^3/uL Red Blood Count 4.06 4.0-5.20 10^6/uL Hemoglobin 12.5 12.2-16.2 g/dL Hematocrit 37.1 36.0-46.0 % Mean Corpuscular Volume 91.2 80.0-100.0 fL Mean Corpuscular Hemoglobin 30.8 28.0-32.0 pg Mean Corpuscular Hemoglobin Concent 33.8 32.0-36.0 g/dL Red Cell Distribution Width 13.4 11.8-14.3 % Platelet Count 202 140-450 10^3/uL Mean Platelet Volume 8.0 6.9-10.8 fL Neutrophils (%) (Auto) 64.5 37.0-80.0 % Lymphocytes (%) (Auto) 23.9 10.0-50.0 % Monocytes (%) (Auto) 9.5 0.0-12.0 % Eosinophils (%) (Auto) 1.6 0.0-7.0 % Basophils (%) (Auto) 0.5 0.0-2.0 % Neutrophils # (Auto) 4.2 1.6-8.6 10 ^3/uL Lymphocytes # (Auto) 1.5 0.4-5.4 10 ^3/uL Monocytes # (Auto) 0.6 0-1.3 10 ^3/uL Eosinophils # (Auto) 0.1 0-0.8 10 ^3/uL Basophils # (Auto) 0 0-0.2 10 ^3/uL Nucleated Red Blood Cells 0.1 % Sodium Level 143 136-145 mmol/L Potassium Level 3.9 3.5-5.1 mmol/L Chloride Level 104 98-107 mmol/L Carbon Dioxide Level 28 20-31 mmol/L Anion Gap 11 5-15 Blood Urea Nitrogen 21 9-23 mg/dL Creatinine 1.24 H 0.550-1.02 mg/dL Glomerular Filtration Rate Calc 47 >90 mL/min BUN/Creatinine Ratio 16.9 10.0-20.0 Serum Glucose 162 H 74-106 mg/dL Calcium Level 9.8 8.7-10.4 mg/dL Total Bilirubin 0.4 0.2-1.0 mg/dL Aspartate Amino Transferase (AST) 29 13-40 U/L Alanine Aminotransferase (ALT) 21 7-40 U/L Alkaline Phosphatase 41 L 46-116 U/L Total Protein 6.0 5.7-8.2 g/dL Albumin 3.9 3.2-4.8 g/dL Assessment/Plan Assessment/Plan # ? Possible gastroenteritis / colitis # R/o Lower GI bleed/ [place] # R/o C diff # Elevated lactic acid likely from above # Dehydration - admit to med surge unit - closely monitor electrolytes and BMP - CT abdomen pelvis showed no acute changes but diverticulosis without diverticulitis - Protonix - stool studies including C diff - NS 500 mL bolus then reassess if needed more fluids # ANUJA likely VMN from above - monitor lab for now - avoid nephrotoxic agents - urinalysis - NS 500 mL bolus then reassess if needed more fluids # Chronic diastolic CHF, not in exacerbation # HTN uncontrolled # HLD # CAD - continuously monitor blood pressure - echo from last visit showed LVEF 65% - resumed her home medications( Coreg, lisinopril, ranolazine, statin ) # type 2 DM with HbA1c 6.6 - monitor with Accu-Cheks - Mild ISS GI PPX: Protonix VTE PPX: Lovenox Diet: Soft diet Goals of care discussed with the patient for more than 27 minutes: Full code status Case discussed with Dr. Allison, patient and nurse Plan discussed with: Patient My Orders Orders - RAS DOZIER RESIDENT Procedure Category Date Status Time Admit ADMIT 03/08/25 Transmitted 22:09 Code Status CODE 03/08/25 Transmitted 22:09 Sodium Chloride 0.9% PHA 03/08/25 In Process 22:15 Ondansetron Hcl PHA 03/08/25 In Process (Zofran) 22:15 Enoxaparin Sodium PHA 03/09/25 In Process (Lovenox) 10:00 Complete Blood Count LAB 03/09/25 Logged 04:00 Comprehensive LAB 03/09/25 Logged Metabolic Panel 04:00 Condition: Stable SHIRA 03/08/25 In Process 22:09 Acetaminophen Tablet PHA 03/08/25 In Process (Tylenol Tablet) 22:15 Nitroglycerin PHA 03/08/25 In Process Sublingual (Ntrostat 22:15 Morphine Sulfate PHA 03/08/25 In Process Injection 22:15 Oxygen By Nasal RT 03/08/25 Transmitted Cannula 22:09 Stat Ekg For Chest SHIRA 03/08/25 In Process Pain 22:09 Notify Of Changes SHIRA 03/08/25 In Process From Base 22:09 Glove Maker For SHIRA 03/08/25 In Process 24 Hours 22:09 Emergency Dysrhythmia SHIRA 03/08/25 In Process Protocol 22:09 Rhythm Strips Once SHIRA 03/08/25 In Process Every Shift 22:09 Stool Occult Blood LAB 03/08/25 Logged 22:45 Stool Bacterial LAMBERT 03/08/25 Uncollected Culture 22:45 Stool Wbc LAB 03/08/25 Logged 22:45 Ova & Parasite Exam LAMBERT 7/5/25 Uncollected 22:45 Soft Diet DIET 03/09/25 Transmitted Breakfast Pantoprazole PHA 03/09/25 Logged (Protonix) 10:00 Carvedilol Tablet PHA 03/09/25 Transmitted (Coreg Tablet) 10:00 Lisinopril Tablet PHA 03/09/25 Transmitted (Zestril Tablet) 10:00 Ranolazine (Ranexa Er) PHA 03/09/25 Transmitted 10:00 (Nf) Simvastatin PHA 03/09/25 Transmitted 18:00 Glucose Blood PHA 03/09/25 Transmitted (Accu-Chek Comfort 07:00 Mild Sliding Scale PHA 03/09/25 Transmitted 07:00 Dextrose 50% Syringe PHA 03/09/25 Transmitted 00:15 Magnesium LAB 03/09/25 Verified 00:05 Date of Service: Mar 08, 2025 Billing Provider: SHERON ALLISON MD Common Visit Codes: [id number] INP/OBS CARE (HIGH) Secondary Visit Codes: [id number] CARE PLAN 30 MINUTES RAS DOZIER RESIDENT Mar 09, 2025 00:07 SHERON ALLISON MD Mar 09, 2025 21:09
[2025-03-09] MEDS ORDERED: DEXTROSE (50%) 50ML SYRG IV PRN (00:15)
[2025-03-09] MEDS: ACETAMINOPHEN 325 MG TAB PO PRN (04:48)
[2025-03-09] MEDS: ACCU-CHEK COMFORT CURVE STRIP VI SCH (06:26)
[2025-03-09] MEDS: InsuLIN REG 1unit/0.01ml Soln (100units/ml) SC SCH (06:26)
[2025-03-09 07:21] LABS: Hematocrit 33.7 % (36.0-46.0); Hemoglobin 11.5 g/dL (12.2-16.2); Mean Corpuscular Hemoglobin 30.8 pg (28.0-32.0); Mean Corpuscular Volume 90.3 fL (80.0-100.0); Nucleated Red Blood Cells % 0.0 %
[2025-03-09 07:47] LABS: Alanine Aminotransferase 16 U/L (7-40); Albumin 3.5 g/dL (3.2-4.8); Alkaline Phosphatase 33 U/L (46-116); Anion Gap 7 (5-15); BUN/Creatinine Ratio 15.7 (10.0-20.0); Bilirubin, Total 0.5 mg/dL (0.2-1.0); Blood Urea Nitrogen 17 mg/dL (9-23); Calcium 9.4 mg/dL (8.7-10.4); Carbon Dioxide 28 mmol/L (20-31); Chloride 107 mmol/L (98-107); Glucose 85 mg/dL (74-106); Magnesium 1.3 mg/dL (1.6-2.6); Potassium 3.6 mmol/L (3.5-5.1); Sodium 142 mmol/L (136-145); Total Protein 5.3 g/dL (5.7-8.2)
[2025-03-09] MEDS: PANTOPRAZOLE 40 MG/10 ML VIAL INJ IV SCH (10:00)
[2025-03-09] MEDS: LISINOPRIL 5 MG TAB PO SCH (10:00)
[2025-03-09] MEDS: RANOLAZINE ER 500 MG TAB PO SCH (10:44)
[2025-03-09] MEDS: CARVEDILOL 12.5 MG TAB PO SCH (10:44)
[2025-03-09] MEDS: ENOXAPARIN SOD 40 MG/0.4 ML SYRINGE SC SCH (10:45)
[2025-03-09] MEDS ORDERED: PATIENTS OWN MEDICATION (Simvastatin 1 TAB) PO SCH (18:00)
--- NOTE | 2025-03-09 19:45 | DVHPNRES ---
Progress Note Date Seen: Mar 09, 2025 Resident Creating Document: TITUS BARRY RESIDENT Has the PT tested + for MRSA If YES, has PT been informed?: No Medical Necessity Reason Pt with a Central, PICC or Fol: No Subjective Review of Systems Milagros March is a 69-year-old female with PPMH of CAD, HTN, HLD, type 2 DM, CHF, cholecystectomy, hysterectomy, bladder surgery, and tonsillectomy who presents to the ED with the chief complaints of having change in bowel movements since 2 days prior to admission. Patient reported that she has been recently discharged from this facility after being treated for back pain. for past 2 days patient started having loose stools yellowish to dark in color associated with a mild nausea , generalized weakness and feeling dehydrated but no vomiting. Patient denies travel, sick contacts, change in food, recent antibiotic use. On my assessment patient denies abdominal pain, vomiting, urinary symptoms, dizziness and other acute associated symptoms. 03/09/25 Ms. Milagros March is a 69-year-old female with a significant PMH of CAD, HTN, HLD, T2DM, CHF, and GERD who presents with 2-day history of loose stools (yellowish to dark) with mild nausea, generalized weakness, and dehydration. She was recently discharged after hospitalization for back pain. Denies abdominal pain, vomiting, fever, chills, dysuria, hematuria, dizziness, sick contacts, recent travel, or recent antibiotic use. Her diarrhea has since improved, and she now denies other symptoms. No signs of melena or hematochezia were reported. PMH: CAD, HTN, HLD, type 2 DM, CHF , GERD PSH: Cholecystectomy, hysterectomy, bladder surgery, tonsillectomy Family history: Noncontributory Social history: Lives with the family at home. Denies smoking, alcohol and other drug abuse Allergies: No known allergies Home medications: Enalapril 10 mg, acarbose 100 mg, carvedilol 12.5 mg, furosemide 20 mg, metformin 500 mg, glipizide 10 mg, famotidine 20 mg, simvastatin 40 mg, vitamin D3, ranolazine Review of Systems Review of Systems Patient seen and examined at the bedside. ROS as described above but reported that her diarrhea has been improved and rest of ROS is negative Other Systems: Pt is lying on bed General Appearance: Alert, Oriented X3, Cooperative, Not in acute distress HEENT: Atraumatic, Mucous membranes dry Respiratory: Clear to auscultation, Normal air movement, No added sounds Cardiovascular: Regular rate, Normal S1, Normal S2, No murmurs Abdominal: Active bowel sounds, Soft, no distention, no tenderness Extremities: Very minimal edema, Normal pulses, No tenderness/swelling Skin: No Significant rash, except past surgical scars Neuro: Normal speech, sensorimotor deficits none Psych/Mental Status: Mental status NL, Mood NL Nurse was there as freezer unloader during examination Objective vital signs Vital Sign Date Time Temp Pulse Resp B/P (MAP) Pulse Ox O2 Delivery O2 Flow Rate FiO2 03/09/25 17:00 97.4 56 20 120/71 (87) 100 97.4 03/09/25 08:00 Room Air* 0 21 Total Intake and Output 03/08/25 03/08/25 03/09/25 15:00 23:00 07:00 Intake Total 700 ml 800 ml Balance 700 ml 800 ml medications Current Medications Medications Dose Ordered Sig/Rama Route Start Time Stop Time Status Last Admin Dose Admin Ondansetron HCl 4 mg Q4HP PRN IV 03/08/25 22:15 Enoxaparin Sodium 40 mg DAILY SC 03/09/25 10:00 03/09/25 10:45 40 MG Acetaminophen 650 mg Q6HP PRN PO 03/08/25 22:15 03/09/25 16:09 650 MG Nitroglycerin 0.4 mg Q5MINP PRN SL 03/08/25 22:15 Morphine Sulfate 2 mg Q30M PRN IV 03/08/25 22:15 Pantoprazole Sodium 40 mg DAILY IV 03/09/25 10:00 Carvedilol 12.5 mg BID PO 03/09/25 10:00 03/09/25 10:44 12.5 MG Lisinopril 20 mg DAILY PO 03/09/25 10:00 03/09/25 10:56 20 MG Ranolazine 500 mg BID PO 03/09/25 10:00 03/09/25 10:44 500 MG Diagnostic Test (Pha) 1 strip ACHS 03/09/25 07:00 03/09/25 16:48 1 STRIP Insulin Human Regular ACHS SC 03/09/25 07:00 03/09/25 16:49 3 UNITS Dextrose 50 ml UD PRN IV 03/09/25 00:15 Atorvastatin Calcium 20 mg HS PO 03/09/25 22:00 Sodium Chloride 1,000 ml @ 100 mls/hr Q10H IV 03/09/25 19:30 UNV Ceftriaxone Sodium 50 ml @ 100 mls/hr DAILY@09 IV 03/10/25 09:00 UNV Metronidazole 250 mg Q8HR PO 03/09/25 22:00 UNV laboratory and microbiology Laboratory Tests 03/09/25 05:16 Test 03/09/25 05:16 Range/Units Serum Glucose 85 74-106 mg/dL Microbiology Date/Time Source Procedure Growth Status 03/08/25 19:00 Blood Blood Culture - Preliminary NO GROWTH AFTER 24 HOURS OF INCUBATION. Resulted aboratory Data Hematology (03/09): * WBC: 6.7 * Hgb: 11.5 * Hct: 33.7 * Neutrophils %: 46.9 * Lymphocytes %: 40.0 * Platelets: 183 * [place] %: 10.6 Chemistry (03/09): * Na: 142 * K: 3.6 * BUN/Cr: 17/1.08 ? GFR 56 * Glucose: 85 ? 208 (variable) * M.3 * Albumin: 3.5 * Lactic Acid: Down from 3.0 to 1.6 (improved) Urinalysis (03/08): * Color: Yellow, Clear * pH: 5.0 * Protein/LE/Nitrites: Negative * Glucose: 1+ * Bacteria: None seen * RBC: 1; WBC: 1 Microbiology (03/08): * Blood Culture Preliminary x2: No growth after 24 hrs Imaging (CT Abdomen/Pelvis, No Contrast): * No acute abdominal abnormalities * Scattered diverticulosis without evidence of diverticulitis * Lungs: Scattered micronodules * Heart, liver, kidneys, spleen, pancreas, : Unremarkable * No lymphadenopathy or ascites Problem List/Assessment/Plan Problem List/Assessment/Plan 1. Diarrhea, likely infectious vs inflammatory colitis * Diarrhea improving; stool studies sent including C. diff * CT showed diverticulosis without diverticulitis * No blood or leukocytes in stool, afebrile * Plan: Continue supportive care; monitor WBCs, lactate Continue Ceftriaxone iv + Metronidazole 2. Volume Depletion / Dehydration * From diarrhea; improved with IV NS * Plan: NS 500 mL bolus 2, then maintenance; monitor urine output 3. Acute Kidney Injury (pre-renal) * Cr 1.08 (baseline ~1.0); likely VMN from dehydration * Plan: Maintain hydration; avoid nephrotoxins; trending labs 4. T2DM, moderate control (HbA1c 6.6%) * BG fluctuating (42876) * Plan: Monitor Accu-Cheks; continue metformin, glipizide 5. Chronic Diastolic CHF (Stable) * LVEF 65% on prior echo, no signs of fluid overload * Plan: Resume home meds (Carvedilol, furosemide, Lisinopril) 6. Hypertension (suboptimally controlled) * BP generally stable * Plan: Continue Coreg, Lisinopril; monitor 7. Hyperlipidemia / CAD * Stable; no chest pain * Plan: Continue statin 8. Hypomagnesemia (Mg 1.3) * Likely GI loss * Plan: Magnesium oxide 400 mg PO daily 9. GI Prophylaxis * Pantoprazole IV daily 10. VTE Prophylaxis * Enoxaparin 40 mg SC daily 1. Diet * Soft mechanical Discussion * Patient and family updated at bedside * Goals of care reviewed for over 27 minutes * Patient is Full Code and case discussed with the physician. Plan discussed with: Patient My Orders My Orders Orders - TITUS BARRY RESIDENT Procedure Category Date Status Time Sodium Chloride 0.9% PHA 03/09/25 In Process 19:30 * Employment Representative CONS 03/09/25 Transmitted Consult Metronidazole Tablet PHA 03/09/25 In Process (Flagyl Tablet) 22:00 Complete Blood Count LAB 03/10/25 Verified 04:00 Comprehensive LAB 03/10/25 Verified Metabolic Panel 04:00 Ceftriaxone 1gm/50ml PHA 03/09/25 In Process D5w (Rocephin) 21:00 TITUS BARRY RESIDENT Mar 09, 2025 19:45
[2025-03-09] MEDS: MAGNESIUM OXIDE 400 MG TAB PO ONE (20:46)
[2025-03-09] MEDS: SODIUM CHLORIDE 0.9% 1,000 ML IV SCH (20:47)
[2025-03-09] MEDS: cefTRIAXone 1GM/50ML D5W 50 ML IV SCH (20:50)
[2025-03-09] MEDS: ATORVASTATIN 20 MG TAB PO SCH (21:46)
[2025-03-09] MEDS: metroNIDAZOLE 500 MG TAB PO SCH (21:47)
[2025-03-10 01:00] VITALS: BP 169/97; PULSE 64; RESP 17; TEMP 98.5; O2SAT 98
[2025-03-10 05:00] VITALS: BP 163/92; PULSE 72; RESP 18; TEMP 97.7; O2SAT 99
[2025-03-10 06:36] LABS: Hematocrit 31.8 % (36.0-46.0); Hemoglobin 10.9 g/dL (12.2-16.2); Mean Corpuscular Hemoglobin 31.0 pg (28.0-32.0); Mean Corpuscular Volume 90.4 fL (80.0-100.0); Nucleated Red Blood Cells % 0.1 %
[2025-03-10 06:41] LABS: Alanine Aminotransferase 17 U/L (7-40); Albumin 3.2 g/dL (3.2-4.8); Anion Gap 8 (5-15); BUN/Creatinine Ratio 9.7 (10.0-20.0); Bilirubin, Total 0.4 mg/dL (0.2-1.0); Blood Urea Nitrogen 10 mg/dL (9-23); Calcium 9.0 mg/dL (8.7-10.4); Carbon Dioxide 29 mmol/L (20-31); Potassium 3.5 mmol/L (3.5-5.1)
[2025-03-10 06:43] LABS: Alkaline Phosphatase 29 U/L (46-116); Chloride 108 mmol/L (98-107); Glucose 118 mg/dL (74-106); Sodium 145 mmol/L (136-145); Total Protein 5.0 g/dL (5.7-8.2)
[2025-03-10 09:00] VITALS: BP 144/68; PULSE 59; RESP 19; TEMP 97.5; O2SAT 99
[2025-03-10 13:00] VITALS: BP 133/70; PULSE 56; RESP 19; TEMP 97.6; O2SAT 100
[2025-03-10] MEDS ORDERED: AUG875T PO (16:08)
--- NOTE | 2025-03-10 16:28 | DVHDSRES ---
Discharge Summary Date of Admission Resident Creating Document: DOMINIQUETITUS TREVINO DARWIN RESIDENT Mar 08, 2025 at 22:09 Date of Discharge: Mar 10, 2025 Admitting Diagnosis Principal Diagnoses: 1. Infectious gastroenteritis/colitis, resolving 2. Intravascular volume depletion resolved 3. Chronic kidney disease (CKD), stage 23, stable 4. Acute kidney injury (ANUJA), resolved ruled out as transient renal dysfunction secondary to dehydration on CKD Secondary Diagnoses (Chronic Conditions): 1. Coronary artery disease (CAD), stable 2. Chronic diastolic congestive heart failure (CHF), LVEF 65%, stable 3. Hypertension, controlled 4. Type 2 diabetes mellitus (HbA1c 6.6%), controlled 5. Hyperlipidemia (HLD) 6. Gastroesophageal reflux disease (GERD) 7. History of cholecystectomy, hysterectomy, bladder surgery, and tonsillectomy Diagnoses Considered and Ruled Out: * C. difficile colitis stool studies pending, but no leukocytosis, afebrile, clinically improved * Acute diverticulitis ruled out via CT * Sepsis ruled out (no fever, no hemodynamic instability, negative blood cultures) Labs/Diagnostic Data: Laboratory Results Test 03/10/25 11:34 03/10/25 05:13 03/09/25 05:16 03/08/25 21:35 POC Glucose 252 mg/dl (70-106) White Blood Count 5.7 10^3/uL (4.4-10.8) Red Blood Count 3.52 10^6/uL (4.0-5.20) Hemoglobin 10.9 g/dL (12.2-16.2) Hematocrit 31.8 % (36.0-46.0) Mean Corpuscular Volume 90.4 fL (80.0-100.0) Mean Corpuscular Hemoglobin 31.0 pg (28.0-32.0) Mean Corpuscular Hemoglobin Concent 34.3 g/dL (32.0-36.0) Red Cell Distribution Width 13.0 % (11.8-14.3) Platelet Count 172 10^3/uL (140-450) Mean Platelet Volume 7.6 fL (6.9-10.8) Neutrophils (%) (Auto) 44.2 % (37.0-80.0) Lymphocytes (%) (Auto) 43.5 % (10.0-50.0) Monocytes (%) (Auto) 9.4 % (0.0-12.0) Eosinophils (%) (Auto) 2.5 % (0.0-7.0) Basophils (%) (Auto) 0.4 % (0.0-2.0) Neutrophils # (Auto) 2.5 10 ^3/uL (1.6-8.6) Lymphocytes # (Auto) 2.5 10 ^3/uL (0.4-5.4) Monocytes # (Auto) 0.5 10 ^3/uL (0-1.3) Eosinophils # (Auto) 0.1 10 ^3/uL (0-0.8) Basophils # (Auto) 0 10 ^3/uL (0-0.2) Nucleated Red Blood Cells 0.1 % Sodium Level 145 mmol/L (136-145) Potassium Level 3.5 mmol/L (3.5-5.1) Chloride Level 108 mmol/L (98-107) Carbon Dioxide Level 29 mmol/L (20-31) Anion Gap 8 (5-15) Blood Urea Nitrogen 10 mg/dL (9-23) Creatinine 1.03 mg/dL (0.550-1.02) Glomerular Filtration Rate Calc 59 mL/min (>90) BUN/Creatinine Ratio 9.7 (10.0-20.0) Serum Glucose 118 mg/dL (74-106) Calcium Level 9.0 mg/dL (8.7-10.4) Total Bilirubin 0.4 mg/dL (0.2-1.0) Aspartate Amino Transferase (AST) 23 U/L (13-40) Alanine Aminotransferase (ALT) 17 U/L (7-40) Alkaline Phosphatase 29 U/L (46-116) Total Protein 5.0 g/dL (5.7-8.2) Albumin 3.2 g/dL (3.2-4.8) Magnesium Level 1.3 mg/dL (1.6-2.6) Urine Color Yellow (Yellow) Urine Clarity Clear (Clear) Urine pH 5.0 (5.0-9.0) Urine Specific [place] 1.021 (1.001-1.035) Urine Protein Negative (Negative) Urine Ketones Negative (Negative) Urine Blood Negative /uL (Negative) Urine Nitrite Negative (Negative) Urine Bilirubin Negative (Negative) Urine Urobilinogen Normal mg/dL (Negative) Urine Leukocyte Esterase Negative /uL (Negative) Urine RBC 1 /hpf (0 - 4) Urine Microscopic WBC 1 /HPF (0-5) Urine Squamous Epithelial Cells Few /hpf (<5) Urine Bacteria None seen /hpf (None Seen) Urine Hyaline Casts Few /lpf (0 - 2) Urine Mucus Few (None Seen) Urine Glucose 1+ mg/dL (Normal) Test 03/08/25 21:04 Lactic Acid Level 1.6 mmol/L (0.4-2.0) Other Laboratory Tests 03/10/25 05:13 Brief Hx & Hospital Course: Ms. Milagros March, a 69-year-old female with a significant history of CAD, HTN, HLD, CHF, Type 2 DM, GERD, and CKD, was admitted from the emergency department on 03/08/2025 for watery diarrhea, mild nausea, generalized weakness, and concern for dehydration and possible infectious colitis. Initial Presentation and Workup * The patient presented with 2 days of yellowish to dark loose stools and generalized weakness. She denied fever, vomiting, abdominal pain, dysuria, or recent travel/antibiotic use. * CT Abdomen/Pelvis (No Contrast): Showed scattered diverticulosis without signs of diverticulitis or other acute findings. * Labs on admission revealed: * Creatinine: 1.24 (baseline ~1.0) ? Improved to 1.03 * GFR: Improved from 47 ? 59 * Lactic acid: 3.0 ? Down to 1.6 * Magnesium: 1.3 (mild hypomagnesemia) * Hemoglobin: Stable at 11.5 * Blood cultures: No growth after 24 hours (2) She received: * IV normal saline boluses for intravascular volume depletion * Magnesium supplementation * Pantoprazole for GI prophylaxis * Empiric antibiotics: Metronidazole and Ceftriaxone initially * Held nephrotoxic agents and monitored renal function closely Clinical Improvement * Her diarrhea began to improve on day 2. * Patient was started on a soft mechanical diet, which she tolerated well without nausea, vomiting, or abdominal pain. * No further bowel movements were noted at discharge, but her baseline bowel habit is once every 23 days. * No signs of ongoing dehydration or electrolyte imbalance were noted by discharge. Fluids were stopped, and patient remained hemodynamically stable on oral intake. Condition at Discharge: Good Final Diagnosis/Problems List Principal Diagnoses: 1. Infectious gastroenteritis/colitis, resolving 2. Intravascular volume depletion resolved 3. Chronic kidney disease (CKD), stage 23, stable 4. Acute kidney injury (ANUJA), resolved ruled out as transient renal dysfunction secondary to dehydration on CKD Secondary Diagnoses (Chronic Conditions): 1. Coronary artery disease (CAD), stable 2. Chronic diastolic congestive heart failure (CHF), LVEF 65%, stable 3. Hypertension, controlled 4. Type 2 diabetes mellitus (HbA1c 6.6%), controlled 5. Hyperlipidemia (HLD) 6. Gastroesophageal reflux disease (GERD) 7. History of cholecystectomy, hysterectomy, bladder surgery, and tonsillectomy iagnoses Considered and Ruled Out: * C. difficile colitis stool studies pending, but no leukocytosis, afebrile, clinically improved * Acute diverticulitis ruled out via CT * Sepsis ruled out (no fever, no hemodynamic instability, negative blood cultures) Discharge Disposition: Home Discharge Instruct/Medications Diet: Cardiac 2g Na,low cholest, Renal, See Comment Diet comment: Soft diet progress as tolerated. Activity: No Restrictions, As Tolerated Follow Up/Referral: 1. Primary Care Physician (PCP) * When: Within 57 days of discharge * Purpose: Medication reconciliation, review stool test results, lab recheck (renal panel, CBC), check BP, glucose 2. Gastroenterology (GI) Follow-up Optional if symptoms recur * When: As needed * Purpose: Evaluate for chronic colitis, diverticulosis monitoring 3. Cardiology Follow-up for CAD and CHF monitoring * When: Within 1 month * Purpose: Review BP, medication tolerance, CHF symptoms 4. Nephrology (If established) * When: Next scheduled visit or within 46 weeks * Purpose: CKD monitoring, reassess renal function post-discharge Medications: ontinue Home Medications: * Lisinopril 20 mg PO daily * Carvedilol 12.5 mg PO BID * Furosemide 20 mg PO daily * Metformin 500 mg PO BID * Glipizide 10 mg PO daily * Acarbose 100 mg PO TID * Ranolazine 500 mg PO BID * Atorvastatin 20 mg PO HS * Vitamin D3, daily * Famotidine 20 mg PO daily (if taken at home) New Prescription: * Augmentin (Amoxicillin-Clavulanate) 875/125 mg PO BID 5 days for presumed infectious colitis/gastroenteritis New Medications: Amoxicillin & Pot Clavulanate (Augmentin Tablet) 875 Mg Tb 875 MG PO BID for 7 Days, #14 TAB Continued Medications: Acarbose (Acarbose) 100 Mg Tab 100 MG PO DAILY, TAB Carvedilol (Carvedilol) 12.5 Mg Tab 1 TAB PO BID Cholecalciferol (Vitamin D3) 2,000 Unit Tab 1 TAB PO BID, #30 TAB 5 Refills Famotidine (Famotidine) 20 Mg Tab 1 TAB PO BID Glipizide (Glipizide) 10 Mg Tab 1 TAB PO BID Lisinopril (Lisinopril) 5 Mg Tab 20 MG PO DAILY for 30 Days, #120 TAB Metformin Hydrochloride (Metformin Hcl) 500 Mg Tab 500 MG PO TID for 30 Days, MG Ranolazine (Ranolazine ER) 500 Mg Tab 1 TAB PO BID Simvastatin (Simvastatin) 40 Mg Tab 1 TAB PO QPM, #90 TAB 1 Refill Care Plan: * Maintain oral hydration * Resume normal soft diet and increase fiber as tolerated * Monitor for recurrence of diarrhea, fever, or weakness * Monitor BP and blood sugar at home if able * Take Augmentin with food to reduce GI upset Post-Discharge Follow-up Appointments 1. Primary Care Physician (PCP) * When: Within 57 days of discharge * Purpose: Medication reconciliation, review stool test results, lab recheck (renal panel, CBC), check BP, glucose 2. Gastroenterology (GI) Follow-up Optional if symptoms recur * When: As needed * Purpose: Evaluate for chronic colitis, diverticulosis monitoring 3. Cardiology Follow-up for CAD and CHF monitoring * When: Within 1 month * Purpose: Review BP, medication tolerance, CHF symptoms 4. Nephrology (If established) * When: Next scheduled visit or within 46 weeks * Purpose: CKD monitoring, reassess renal function post-discharge Scheduled Acarbose (Acarbose), 100 MG PO DAILY, (Reported) Amoxicillin & Pot Clavulanate (Augmentin Tablet), 875 MG PO BID Carvedilol (Carvedilol), 1 TAB PO BID, (Reported) Cholecalciferol (Vitamin D3), 1 TAB PO BID, (Reported) Famotidine (Famotidine), 1 TAB PO BID, (Reported) Glipizide (Glipizide), 1 TAB PO BID, (Reported) Lisinopril (Lisinopril), 20 MG PO DAILY Metformin Hydrochloride (Metformin Hcl), 500 MG PO TID, (Reported) Ranolazine (Ranolazine ER), 1 TAB PO BID, (Reported) Simvastatin (Simvastatin), 1 TAB PO QPM, (Reported) Discharge Statement: "Patient was advised to return to the ER or call 911 if any headaches, dizziness, shortness of breath, chest pain, abdominal pain, bleeding, fevers, or worsening of medical condition. Patient was counseled about treatment plan, medications, possible side effects, patientverbalized understanding. All questions were answered to the best of my ability. This discharge took greater then 30 minutes in planning, reviewing documentation, counseling the patient, and discussing with other team members." ASSESSMENT ASSESSMENT Assessment Principal Diagnoses: 1. Infectious gastroenteritis/colitis, resolving 2. Intravascular volume depletion resolved 3. Chronic kidney disease (CKD), stage 23, stable 4. Acute kidney injury (ANUJA), resolved ruled out as transient renal dysfunction secondary to dehydration on CKD Secondary Diagnoses (Chronic Conditions): 1. Coronary artery disease (CAD), stable 2. Chronic diastolic congestive heart failure (CHF), LVEF 65%, stable 3. Hypertension, controlled 4. Type 2 diabetes mellitus (HbA1c 6.6%), controlled 5. Hyperlipidemia (HLD) 6. Gastroesophageal reflux disease (GERD) 7. History of cholecystectomy, hysterectomy, bladder surgery, and tonsillectomy iagnoses Considered and Ruled Out: * C. difficile colitis stool studies pending, but no leukocytosis, afebrile, clinically improved * Acute diverticulitis ruled out via CT * Sepsis ruled out (no fever, no hemodynamic instability, negative blood cultures) TITUS BARRY RESIDENT Mar 10, 2025 16:28
[2025-03-10 16:59] VITALS: BP 129/62; PULSE 54; RESP 19; TEMP 96.6; O2SAT 100
[2025-03-10 17:18] VITALS: BP 130/71; PULSE 60; TEMP 35.9
== END 2025-03-10 18:30 | disposition home or self-care (01) | DRG 392 ==
LOC: EDBD 18:05 → EDUNIT# 18:05 → ER 18:08 → OVERFLOW 22:09 → EAST 23:34
PROVIDERS: ADMIT Student in an Organized Health Care Education/Training Program; ATTEND Student in an Organized Health Care Education/Training Program
DX: A09 Infectious gastroenteritis and colitis, unspecified (principal); I50.32 Chronic diastolic (congestive) heart failure; I13.0 Hypertensive heart and chronic kidney disease with heart failure and stage 1 through stage 4 chronic kidney disease, or unspecified chronic kidney disease; K92.2 Gastrointestinal hemorrhage, unspecified; E86.0 Dehydration; I25.10 Atherosclerotic heart disease of native coronary artery without angina pectoris; E78.5 Hyperlipidemia, unspecified; K21.9 Gastro-esophageal reflux disease without esophagitis; E83.42 Hypomagnesemia; E86.9 Volume depletion, unspecified; E11.22 Type 2 diabetes mellitus with diabetic chronic kidney disease; N18.30 Chronic kidney disease, stage 3 unspecified; Z90.49 Acquired absence of other specified parts of digestive tract; Z90.710 Acquired absence of both cervix and uterus
CPT/HCPCS: 36415; 74176; 80053; 81001; 82962; 83605; 83735; 85025; 87040; 87081; 93005; 96365; 96375; G0378; J1815; J1956; J2470; J3490